=== PATIENT | female | born 1975 | race Caucasian/White ===

== ENCOUNTER 2020-01-26 12:11 | Day surgery (SDC) | payer OTHER, SELFPAY ==
[2020-01-25 11:18] VITALS: BMI 33.4
--- NOTE | 2020-01-25 12:02 | P.CONAN_ITS ---
Documented by User: Giuliana Donohue 01/25/20 12:07 HPI - Anesthesia Eval Consult details Narrative: 44yo F for L ESWL Last ESWL 2016 COUNT INCLUDES THE [facility] Past Medical History Medical History Anxiety Asthma Depression Insomnia Nephrolithiasis Obesity Scoliosis Surgical History Surgical History History of excision of pilonidal cyst Hx of lithotripsy Hx of tubal ligation Social History Social History Smoking Status: Never smoker Second Hand Smoke Exposure: No Use of substances other than those prescribed or required for medical reasons: No Have you been hit, kicked, punched, or otherwise hurt by someone within the past year? If so, by whom?: No Advance Directives: No Advance Directives Information Provided: Yes Advance Directives on File: No Recently lost weight without trying: No Meds Allergies Allergy/AdvReac Type Severity Reaction Status Date / Time almond Allergy Severe ANAPHYLAXIS Verified 01/26/20 13:49 latex [Latex] Allergy Severe RASH/SWELLI Verified 01/26/20 13:49 NG naproxen [NAPROXEN] Allergy Intermediate HIVES Verified 01/26/20 13:49 amoxicillin [AMOXICILLIN] Allergy Mild HIVES Verified 01/26/20 13:49 FRUIT Allergy Severe ANAPHYLAXIS Uncoded 01/06/20 14:56 Seafood Allergy Severe ANAPHYLAXIS Uncoded 01/06/20 14:56 Environmental Allergy Unknown Itching Uncoded 01/26/20 13:49 Shrimp Allergy Unknown anaphylaxis Uncoded 12/21/19 00:00 Home Medications Medication Instructions Recorded Confirmed Type betamethasone dipropionate applic TOPICAL BID 01/26/20 History bupropion HCl tab PO 01/26/20 History ferrous sulfate 1 tab PO BID 01/26/20 01/26/20 History fluticasone propionate 1 spray INTRANASAL DAILY 01/26/20 01/26/20 History ibuprofen 1 tab PO TID PRN 01/26/20 01/26/20 History loratadine 1 tab PO DAILY PRN 01/26/20 01/26/20 History lorazepam 1 tab PO BEDTIME 01/26/20 01/26/20 History omeprazole 1 cap PO DAILY 01/26/20 01/26/20 History tramadol 1 tab PO Q6H 01/26/20 01/26/20 History trazodone 1 tab PO BEDTIME PRN 01/26/20 01/26/20 History triamcinolone acetonide 1 applic TOPICAL BID 01/26/20 01/26/20 History Exam Exam Date and Time: January 25, 2020 1202 Height,Weight and Vital Signs: Height 5 ft 1 in Weight 80.286 kg Pertinent Lab Results Pertinent Lab Results: Laboratory Tests 11/30/19 10:35 WBC 6.5 Hgb 12.5 Hct 40.4 Plt Count 417 H Assessment and Plan Assessment Anesthesia Assessment: Chart Reviewed Documented by User: Yolanda Stewart 01/26/20 14:08 PMFSH Past Medical History Medical History Anxiety Asthma Depression Insomnia Nephrolithiasis Obesity Scoliosis Family History Family history of problems with anesthesia: No Surgical History Surgical History History of excision of pilonidal cyst Hx of lithotripsy Hx of tubal ligation History of Problems with Anesthesia: Yes (PONV) Social History Social History Smoking Status: Never smoker Second Hand Smoke Exposure: No Use of substances other than those prescribed or required for medical reasons: No Have you been hit, kicked, punched, or otherwise hurt by someone within the past year? If so, by whom?: No Advance Directives: No Advance Directives Information Provided: Yes Advance Directives on File: No Recently lost weight without trying: No Meds Allergies Allergy/AdvReac Type Severity Reaction Status Date / Time almond Allergy Severe ANAPHYLAXIS Verified 01/26/20 13:49 latex [Latex] Allergy Severe RASH/SWELLI Verified 01/26/20 13:49 NG naproxen [NAPROXEN] Allergy Intermediate HIVES Verified 01/26/20 13:49 amoxicillin [AMOXICILLIN] Allergy Mild HIVES Verified 01/26/20 13:49 FRUIT Allergy Severe ANAPHYLAXIS Uncoded 01/06/20 14:56 Seafood Allergy Severe ANAPHYLAXIS Uncoded 01/06/20 14:56 Environmental Allergy Unknown Itching Uncoded 01/26/20 13:49 Shrimp Allergy Unknown anaphylaxis Uncoded 12/21/19 00:00 Home Medications Medication Instructions Recorded Confirmed Type betamethasone dipropionate applic TOPICAL BID 01/26/20 History bupropion HCl tab PO 01/26/20 History ferrous sulfate 1 tab PO BID 01/26/20 01/26/20 History fluticasone propionate 1 spray INTRANASAL DAILY 01/26/20 01/26/20 History ibuprofen 1 tab PO TID PRN 01/26/20 01/26/20 History loratadine 1 tab PO DAILY PRN 01/26/20 01/26/20 History lorazepam 1 tab PO BEDTIME 01/26/20 01/26/20 History omeprazole 1 cap PO DAILY 01/26/20 01/26/20 History tramadol 1 tab PO Q6H 01/26/20 01/26/20 History trazodone 1 tab PO BEDTIME PRN 01/26/20 01/26/20 History triamcinolone acetonide 1 applic TOPICAL BID 01/26/20 01/26/20 History Exam Height,Weight and Vital Signs: Vital Signs Temp Pulse Resp BP Pulse Ox 01/26/20 13:15 97.0 F 84 16 122/85 100 Airway Mallampati Class: II TM Dist: >3cm Neck ROM: Full Loose/Missing/Broken Teeth: No Heart: RRR Lungs: CTAB Assessment and Plan Final Anesthetic Review NPO: Yes ASA Class: II Final Preanesthetic Review: No Changes in Pt Med Stat, Meds/Allgs Chart Reviewed, Consent Obtained/Reviewed and Anes Risks/Benef Reviewed Patient Risk: Intermediate Procedure Risk: Low Anesthetic Plan Anesthetic Plan: MAC: Disposition: Standard PACU
--- NOTE | 2020-01-26 12:17 | XR_ITS ---
EXAMINATION: XR ABDOMEN KUB CLINICAL INDICATION: Left renal stone COMPARISON: Ultrasound 11/30/2019. CT 12/28/2018. TECHNIQUE: AP view of the abdomen. FINDINGS: Punctate calcification overlies the lower pole of the left kidney, possibly a renal calculus. No additional calculi are evident. IMPRESSION: Unremarkable examination.
[2020-01-26 13:15] VITALS: BP 122/85; PULSE 84; RESP 16; TEMP 36.1; O2SAT 100
--- NOTE | 2020-01-26 13:18 | MHC.SHP ---
Pre-Procedural Eval Section A The patient is an INPATIENT: No The History & Physical has been completed within 30 days and I have reviewed it.: Yes Section B Chief Complaint: left renal stone Allergies: Allergies Allergy/AdvReac Type Severity Reaction Status Date / Time almond Allergy Severe ANAPHYLAXIS Unverified 01/06/20 14:56 latex [Latex] Allergy Severe RASH/SWELLI Unverified 01/06/20 14:56 NG naproxen [NAPROXEN] Allergy Intermediate HIVES Unverified 01/06/20 14:56 amoxicillin [AMOXICILLIN] Allergy Mild HIVES Unverified 01/06/20 14:56 FRUIT Allergy Severe ANAPHYLAXIS Uncoded 01/06/20 14:56 Seafood Allergy Severe ANAPHYLAXIS Uncoded 01/06/20 14:56 All fruits Allergy Unknown anaphylaxis Uncoded 12/21/19 00:00 Environmental Allergy Unknown Uncoded 12/21/19 00:00 Latex Allergy Unknown rash Uncoded 12/21/19 00:00 Shrimp Allergy Unknown anaphylaxis Uncoded 12/21/19 00:00 Plan Patient has been examined and remains a candidate for the planned procedure
[2020-01-26] MEDS: Lactated Ringers 1,000 ML 100 ML IVCONT (13:43)
--- NOTE | 2020-01-26 14:57 | PM.OP ---
Brief Operative Note Date of procedure: 01/26/20 Pre-op diagnosis: left renal stone Post-op diagnosis: same Procedure: left eswl Surgeon: Myles Rowland III, MD Anesthesia: MAC Condition: stable Disposition: same day
[2020-01-26 15:01] VITALS: BP 145/99; PULSE 67; RESP 16; TEMP 36.1; O2SAT 95
[2020-01-26 15:16] VITALS: BP 127/90; PULSE 68; RESP 16; TEMP 36.1; O2SAT 96
[2020-01-26 15:27] VITALS: BP 112/70; PULSE 67; RESP 16; TEMP 36.1; O2SAT 97
== END 2020-01-26 16:04 | disposition home or self-care (01) ==
PROVIDERS: Urology; PCP Internal Medicine; Visit Provider Internal Medicine
PROC: (CPT 50590; principal; 2020-01-26 14:50)
DX: N20.0 Calculus of kidney (principal); Z87.442 Personal history of urinary calculi; J45.909 Unspecified asthma, uncomplicated; F41.9 Anxiety disorder, unspecified; Z88.1 Allergy status to other antibiotic agents; Z91.040 Latex allergy status; Z91.013 Allergy to seafood; Z79.899 Other long term (current) drug therapy
CPT/HCPCS: 50590; 74018; J1885; J2250; J2405

== ENCOUNTER 2020-02-02 08:08 | Outpatient (REF) | payer OTHER, SELFPAY | END 2020-02-02 08:09 | disposition home or self-care (01) | LOC: HO.LNP 08:08 | PROVIDERS: PCP Internal Medicine; Referring Provider Internal Medicine; Visit Provider Obstetrics & Gynecology | DX: N87.0 Mild cervical dysplasia (principal) | CPT/HCPCS: 57455; 88305; 88341; 88342; 88360 ==

== ENCOUNTER 2020-03-13 10:52 | Outpatient (REF) | payer OTHER, SELFPAY ==
[2020-03-13 11:46] LABS: MANUAL DIFF FLAG NO
[2020-03-13 11:51] LABS: Basophils Absolute Auto 0.1 X10*3/uL (0.0-0.2); Basophils Percent Auto 0.8 % (0-2); Eosinophils Absolute Auto 0.3 X10*3/uL (0.0-0.4); Eosinophils Percent Auto 3.6 % (0-4); Hematocrit 41.4 % (37-47); Hemoglobin 13.7 g/dl (12.0-16.0); Imm Gran Abs Auto 0.03 X10*3/uL (0.00-0.03); Imm Gran Pct Auto 0.4 % (0.0-0.4); Lymphocytes Absolute Auto 1.7 X10*3/uL (1.2-4.9); Lymphocytes Percent Auto 22.6 % (20-40); Mean Corpuscular HGB Conc 33.1 g/dl (31.0-35.0); Mean Corpuscular Hemoglobin 29.1 pg (27.0-33.0); Mean Corpuscular Volume 87.9 fL (80-98); Mean Platelet Volume 9.8 fL (9.4-12.3); Monocytes Absolute Auto 0.3 X10*3/uL (0.1-1.2); Monocytes Percent Auto 3.9 % (2-11); Neutrophils Absolute Auto 5.2 X10*3/uL (2.0-8.3); Neutrophils Percent Auto 68.7 % (45-73); Platelet Count 402 X10*3/uL (160-400); Red Blood Count 4.71 X10*6/uL (4.20-5.50); Red Cell Distribution Width 13.4 % (11.0-16.0); White Blood Count 7.5 X10*3/uL (4.8-10.8)
[2020-03-13 12:26] LABS: Iron 98 mcg/dL (30-160); Percent Iron Saturation 31 % (15-50); Total Iron Binding Capacity 315 mcg/dL (228-428); Unsaturated Iron Binding 217 ug/dL
[2020-03-13 12:46] LABS: Ferritin 18 ng/mL (10-250)
== END 2020-03-13 10:53 | disposition home or self-care (01) ==
LOC: HO.LAB 10:52
PROVIDERS: PCP Internal Medicine; Visit Provider Internal Medicine
DX: E61.1 Iron deficiency (principal)
CPT/HCPCS: 36415; 82728; 83540; 85025

== ENCOUNTER 2020-03-20 10:19 | Outpatient (REF) | payer OTHER, SELFPAY | END 2020-03-20 10:20 | disposition home or self-care (01) | LOC: HO.LAB 10:19 | PROVIDERS: Visit Provider Internal Medicine | DX: Z20.828 Contact with and (suspected) exposure to other viral communicable diseases (principal) | CPT/HCPCS: C9803; U0003 ==

== ENCOUNTER 2020-05-18 13:29 | Outpatient (REF) | payer OTHER, SELFPAY ==
--- NOTE | 2020-05-18 13:31 | US_ITS ---
EXAMINATION: US RETROPERITONEAL LIMITED (RENAL ONLY) CLINICAL INFORMATION: Calculus of kidney. COMPARISON: X-ray abdomen KUB 01/26/2020. Renal ultrasound 11/30/2019 and 08/12/2018. CT abdomen and pelvis 12/28/2018. TECHNIQUE: Real-time imaging of the kidneys. FINDINGS: RIGHT KIDNEY: 10.8 x 4.8 x 4.5 cm (SAG x AP x TRV). The kidney is normal in size, contour, and echogenicity. Renal cortical thickness is normal. No renal calculi or hydronephrosis. Lower pole 1.5 cm simple cyst. LEFT KIDNEY: 11.0 x 6.1 x 5.9 cm (SAG x AP x TRV). The kidney is normal in size, contour, and echogenicity. Renal cortical thickness is normal. No focal parenchymal lesions or hydronephrosis. Lower pole calculus measuring 0.3 cm. 0.3 cm midpole calculus noted. US/US renal BI IMPRESSION: Nonobstructing small left renal calculi. These appear smaller than on the previous ultrasound.
== END 2020-05-18 13:30 | disposition home or self-care (01) ==
LOC: HO.US 13:29
PROVIDERS: Visit Provider Urology
DX: N20.0 Calculus of kidney (principal)
CPT/HCPCS: 76775

== ENCOUNTER 2020-06-14 10:45 | Outpatient (REF) | payer OTHER, SELFPAY ==
--- NOTE | ~2020-06-14 | MM_ITS ---
EXAMINATION: MM SCREENING DIGITAL BREAST TOMOSYNTHESIS, BILATERAL CLINICAL INFORMATION: Screening. Asymptomatic. The lifetime risk of breast cancer based on the Tyrer-Cuzick Model is 7%. COMPARISON: Mammography: 06/09/2019, 06/03/2018, 05/19/2017 TECHNIQUE: Digital breast tomosynthesis is performed in both the craniocaudal and mediolateral oblique views along with computer-aided detection (CAD). Synthesized 2D images are generated from the tomosynthesis. FINDINGS: There are scattered areas of fibroglandular density (ACR BI-RADS breast composition Category b). There are no significant masses, abnormal calcifications, or other abnormalities. Parenchymal pattern is similar to prior exams. Low right axillary tail nodes are stable. There is benign grouped rim dermal calcifications again seen right breast 4:00 position. MM/MM tomosynthesis screening BI IMPRESSION: No mammographic evidence of malignancy. ASSESSMENT: BI-RADS 2: Benign RECOMMENDATION: Routine annual mammography screening. This patient's information was entered into a reminder system with a target due date for their next mammogram.
== END 2020-06-14 10:46 | disposition home or self-care (01) ==
LOC: HO.MAMMO 10:45
PROVIDERS: PCP Internal Medicine; Visit Provider Internal Medicine
DX: Z12.31 Encounter for screening mammogram for malignant neoplasm of breast (principal)
CPT/HCPCS: 77063; 77067

== ENCOUNTER → 2020-08-04 12:09 | Outpatient (BNVA) | payer OTHER, SELFPAY | PROVIDERS: PCP Internal Medicine; Visit Provider Urology ==

== ENCOUNTER 2021-02-08 08:08 | Outpatient (REF) | payer OTHER, SELFPAY ==
--- NOTE | ~2021-02-08 | US_ITS ---
EXAMINATION: US RETROPERITONEAL LIMITED (RENAL ONLY) CLINICAL INFORMATION: Calculus of kidney. COMPARISON: Renal ultrasound 05/18/2020 and 11/30/2019. X-ray abdomen KUB 01/26/2020. CT abdomen and pelvis 12/28/2018. TECHNIQUE: Real-time imaging of the kidneys. FINDINGS: RIGHT KIDNEY: 12.4 x 4.3 x 4.4 cm (SAG x AP x TRV). The kidney is normal in size, contour, and echogenicity. Renal cortical thickness is normal. No hydronephrosis. There is an anechoic cyst lower pole measuring 1.6 x 0.9 x 1.7 cm. There is an echogenic stone in the lower pole measuring 0.5 x 0.3 x 0.5 cm. There are several echogenic punctate foci scattered throughout with twinkle artifact. LEFT KIDNEY: 12.8 x 6.7 x 6.4 cm (SAG x AP x TRV). The kidney is normal in size, contour, and echogenicity. Renal cortical thickness is normal. No focal parenchymal lesions or hydronephrosis. There is a midpole echogenic stone measuring 0.5 x 0.4 x 0.6 cm and a lower pole echogenic stone measuring 0.4 x 0.3 x 0.4 cm. No caliectasis seen. There are multiple echogenic punctate foci with twinkle artifact. US/US renal BI IMPRESSION: Bilateral echogenic stones without caliectasis. There are multiple echogenic punctate foci, likely tiny vascular calcifications. There is a small 1.7 cm cyst lower pole right kidney. There is no hydronephrosis.
== END 2021-02-08 08:09 | disposition home or self-care (01) ==
LOC: HO.US 08:08
PROVIDERS: PCP Internal Medicine; Visit Provider Urology
DX: N20.0 Calculus of kidney (principal)
CPT/HCPCS: 76775

== ENCOUNTER → 2021-02-16 14:34 | Outpatient (BNVA) | payer OTHER, SELFPAY | PROVIDERS: Visit Provider Urology ==

== ENCOUNTER 2021-03-06 10:00 | Outpatient (REF) | payer OTHER, SELFPAY ==
[2021-03-09 02:36] LABS: HPV mRNA E6/E7 rflx Not Detected (Not Detected)
== END 2021-03-06 10:01 | disposition home or self-care (01) ==
LOC: HO.LAB 10:00
PROVIDERS: PCP Internal Medicine; Visit Provider Obstetrics & Gynecology
DX: Z01.419 Encounter for gynecological examination (general) (routine) without abnormal findings (principal); Z11.51 Encounter for screening for human papillomavirus (HPV); N87.0 Mild cervical dysplasia
CPT/HCPCS: 87624; 88142

== ENCOUNTER → 2021-06-14 08:01 | Outpatient (BNVA) | payer OTHER, SELFPAY | PROVIDERS: PCP Internal Medicine; Referring Provider Internal Medicine; Visit Provider Physician Assistant | DX: Z12.11 Encounter for screening for malignant neoplasm of colon (principal) | CPT/HCPCS: 99202 ==

== ENCOUNTER 2021-07-05 11:37 | Outpatient (REF) | payer OTHER, SELFPAY ==
--- NOTE | ~2021-07-05 | MM_ITS ---
EXAMINATION: MM SCREENING DIGITAL BREAST TOMOSYNTHESIS, BILATERAL CLINICAL INFORMATION: Screening. Asymptomatic. The lifetime risk of breast cancer based on the Tyrer-Cuzick Model is 8%. COMPARISON: Mammography: 06/14/2020, 06/09/2019, 06/03/2018. TECHNIQUE: Digital breast tomosynthesis is performed in both the craniocaudal and mediolateral oblique views along with computer-aided detection (CAD). Synthesized 2D images are generated from the tomosynthesis. FINDINGS: There are scattered areas of fibroglandular density (ACR BI-RADS breast composition Category b). There are no significant masses, abnormal calcifications, or other abnormalities. Parenchymal pattern is similar to prior studies. No developing density. The axilla and skin contours are unremarkable. MM/MM tomosynthesis screening BI IMPRESSION: No mammographic evidence of malignancy. ASSESSMENT: BI-RADS 1: Negative RECOMMENDATION: Routine annual mammography screening. This patient's information was entered into a reminder system with a target due date for their next mammogram.
== END 2021-07-05 11:38 | disposition home or self-care (01) ==
LOC: HO.MAMMO 11:37
PROVIDERS: PCP Internal Medicine; Visit Provider Obstetrics & Gynecology
DX: Z12.31 Encounter for screening mammogram for malignant neoplasm of breast (principal)
CPT/HCPCS: 77063; 77067

== ENCOUNTER 2021-07-20 09:01 | Emergency (ER) | payer OTHER, SELFPAY ==
--- NOTE | ~2021-07-20 | XR_ITS ---
EXAMINATION: XR CHEST CLINICAL INFORMATION: Chest pain COMPARISON: Previous chest x-ray 07/27/2017 TECHNIQUE: Frontal view of the chest was obtained. FINDINGS: The cardiac and mediastinal contours are normal. There is scarring or subsegmental atelectasis at the lung bases. The lungs are otherwise clear. There is no pleural effusion or pneumothorax. There is mild curvature of the proximal thoracic spine to the left. XR/XR chest 1V IMPRESSION: Minimal linear scarring or subsegmental atelectasis at the lung bases. Otherwise unremarkable exam.
[2021-07-20 09:03] VITALS: BP 147/81; PULSE 76; RESP 16; TEMP 37.2; O2SAT 99; BMI 35.6
--- NOTE | 2021-07-20 09:24 | ED_ITS ---
HPI - Chest Pain General Chief Complaint: Chest Pain Stated Complaint: Chest discomfort Time Seen by Provider: 07/20/21 09:24 Source: patient Mode of arrival: ambulatory Limitations: no limitations History of Present Illness HPI narrative: chest discomfort for 3 hours. Patient woke up with the pain, the pain continued at work so she come to the ED. Patient has anxiety and depression. Parents are healthy mother has CAD. MD complaint: chest heaviness Onset (ago): hour(s) Timing of current episode: constant Prior episodes: No Onset: during rest Pain location: substernal Severity: mild Quality: other (heavy) Risk Factors Coronary artery disease risk factors: none Thoracic aortic dissection risk factors: none Related Data Home Medications Medication Instructions Recorded Confirmed bupropion HCl 150 mg tablet,12 hr tab PO 01/26/20 06/24/21 sustained-release Previous Rx's Medication Instructions Recorded tizanidine 2 mg tablet 2 mg PO Q8H PRN #90 tab 06/21/20 pyridoxine (vitamin B6) 100 mg 100 mg PO DAILY 90 Days #90 tab 08/04/20 tablet ferrous sulfate 325 mg (65 mg 325 mg PO BID #90 tab 08/31/20 iron) tablet ibuprofen 800 mg tablet 800 mg PO TID PRN #90 tab 10/11/20 loratadine 10 mg tablet 10 mg PO DAILY PRN #90 tab 10/11/20 epinephrine 0.3 mg/0.3 mL 0.3 mg (0.3 mL) IM Q10M PRN #2 ea 11/06/20 injection, auto-injector (EpiPen 2-Dylan) albuterol sulfate 90 mcg/actuation 2 puff INHALATION Q4-6H PRN 30 12/08/20 aerosol inhaler (ProAir HFA) Days #8.5 g tramadol 50 mg tablet 50 mg PO Q6H 5 Days #20 tab 12/08/20 triamcinolone acetonide 0.5 % 1 appl TOPICAL DAILY PRN #15 g 12/11/20 topical cream omeprazole 20 mg capsule,delayed 20 mg PO DAILY #30 cap 01/01/21 release lorazepam 1 mg tablet 1 mg PO BEDTIME #30 tab 05/04/21 bisacodyl 5 mg tablet,delayed 10 mg PO ONCE 1 Days #2 tab 06/14/21 release (Dulcolax (bisacodyl)) polyethylene glycol 3350 17 238 g PO ONCE 1 Days #238 g 06/14/21 gram/dose oral powder (Miralax) fluticasone propionate 50 1 spray INTRANASAL DAILY 10 Days 07/09/21 mcg/actuation nasal #150 ml spray,suspension (Flonase Allergy Relief) trazodone 50 mg tablet 50 mg PO BEDTIME PRN #90 tab 07/10/21 naproxen 500 mg tablet (Naprosyn) 500 mg PO BID #20 tab 07/20/21 Allergies Allergy/AdvReac Type Severity Reaction Status Date / Time almond Allergy Severe ANAPHYLAXIS Verified 06/24/21 22:49 latex [Latex] Allergy Severe RASH/SWELLI Verified 06/24/21 22:49 NG shrimp Allergy Severe Anaphylaxis Verified 06/24/21 22:49 naproxen [NAPROXEN] Allergy Intermediate HIVES Verified 06/24/21 22:49 amoxicillin [AMOXICILLIN] Allergy Mild HIVES Verified 06/24/21 22:49 FRUIT Allergy Severe ANAPHYLAXIS Uncoded 06/24/21 22:49 Environmental Allergy Unknown Itching Uncoded 06/24/21 22:49 Review of Systems Constitutional: Constitutional: Reports no additional constitutional complaints Eyes: Eyes: Reports no additional eye complaints ENT: Denies dizziness Cardiovascular: Cardiovascular: Reports no additional cardiovascular complaints Respiratory: Respiratory: Reports as per HPI Gastrointestinal: Gastrointestinal: Reports no additional gastrointestinal complaints Genitourinary: Genitourinary: Reports no additional female genitourinary complaints Musculoskeletal: Musculoskeletal: Reports no additional musculoskeletal complaints Integumentary/Breasts: Skin/Breast: Denies rash Neurologic: Reports system reviewed and no additional complaints, except as documented, Denies dizziness and Denies Sensory deficit (Neuro) Psychiatric: Psychiatric: Denies anxiety PMFSH Past Medical History Medical History Anemia Anemia Anxiety ASCUS with positive high risk HPV ASCUS with positive high risk HPV cervical Asthma Depression Insomnia Nephrolithiasis Obesity Obesity Obesity (BMI 30-39.9) Renal stone Scoliosis Surgical History History of excision of pilonidal cyst Hx of lithotripsy Hx of tubal ligation Family History Family History Father No problems noted. Mother Diabetes Maternal Grandmother COPD (chronic obstructive pulmonary disease) Paternal Grandfather No problems noted. Paternal Grandmother Medical history unknown Social History Social History Housing: House Alcohol intake: never Patient Tobacco Use Status: Never used Tobacco e-Cigarette/Vaping Use: Never Used Second Hand Smoke Exposure: No Advance Directives: No Patient : No service: No Current occupational status: employed Current occupation: [employer] Sexual orientation: Straight/Heterosexual Gender identity: Female Physical Exam Vital Signs: Vital Signs: Last Vital Signs Temp 99.0 F 07/20/21 09:03 Pulse 74 07/20/21 10:03 Resp 18 07/20/21 10:03 BP 116/81 07/20/21 10:03 Pulse Ox 97 07/20/21 10:03 BMI result Body Mass Index 35.6 Const: General: healthy appearing Nutritional Appearance: average body habitus Orientation/consciousness: oriented to person and patient oriented x3 Limitations: no limitations HEENT: Head: Yes normal to inspection Ears: external ears normal General nose exam: Normal external nose present Mouth: Normal oral and palatal mucosa present and oropharynx normal Throat: Yes posterior oropharynx normal Eyes: General: appearance normal, both eyes and all related structures Neck: Other: supple Neck: Yes normal visual inspection Chest: Other: reproducible pain to palpation Chest palpation & inspection: normal inspection of the chest Resp: Auscultation: clear to auscultation bilaterally Cardio: Jugular venous distension: no JVD Rate: regular rate Rhythm: regular rhythm Heart sounds: S1 normal heart sound present and S2 normal heart sound present GI: Inspection: Yes normal to inspection Palpation (GI): Soft to palpation, nontender and No hepatosplenomegaly present Auscultation: normal bowel sounds : General: Yes no CVA tenderness Back/Spine/Pelvis: Back: no CVA tenderness Skin: General skin exam: no rashes or lesions noted Neuro: General: oriented to person and patient oriented x3 Cranial nerves: Yes CN's II-XII intact bilaterally Motor exam (neuro): 5/5 motor strength present throughout Sensory Exam: No Sensory deficit (Neuro) Extrem: General: Yes normal to inspection Psych: Appearance: grossly normal Course Reevaluation(s) Reevaluation #1: patient with reproducible pain on chest, will treat for costrocondritis Time: 11:16 [facility] - Chest Pain Lab Data Result diagrams: 07/20/21 09:43 07/20/21 09:43 Labs: Lab Results 07/20/21 07/20/21 07/20/21 Range/Units 09:43 09:43 09:43 WBC 6.2 (4.8-10.8) X10*3/uL RBC 4.59 (4.20-5.50) X10*6/uL Hgb 12.9 (12.0-16.0) g/dl Hct 39.9 (37.0-47.0) % MCV 86.9 (80.0-98.0) fL MCH 28.1 (27.0-33.0) pg MCHC 32.3 (31.0-35.0) g/dl RDW 13.1 (11.0-16.0) % Plt Count 374 (160-400) X10*3/uL MPV 9.7 (9.4-12.3) fL Immature Gran % (Auto) 0.2 (0.0-0.4) % Neut % (Auto) 66.8 (45-73) % Lymph % (Auto) 22.8 (20-40) % [place] % (Auto) 5.5 (2-11) % Eos % (Auto) 3.9 (0-4) % Baso % (Auto) 0.8 (0-2) % Lymph # (Auto) 1.4 (1.2-4.9) X10*3/uL [place] # (Auto) 0.3 (0.1-1.2) X10*3/uL Eos # (Auto) 0.2 (0.0-0.4) X10*3/uL Baso # (Auto) 0.1 (0.0-0.2) X10*3/uL Abs Immat Gran (auto) 0.01 (0.00-0.03) X10*3/uL Absolute Neuts (auto) 4.2 (2.0-8.3) x10*3/uL Absolute Nucleated RBC 0.000 (0.0-0.012) X10*3/uL Nucleated RBC % (auto) 0.0 (0.0-0.2) /100WBC Sodium 139 (135-145) mmol/L Potassium 3.7 (3.3-5.1) mmol/L Chloride 109 H (96-108) mmol/L Carbon Dioxide 25 (22-29) mmol/L Anion Gap 9 L (12-20) BUN 13 (9-16) mg/dL Creatinine 0.75 (0.5-1.4) mg/dL Estim Creat Clear Calc 93.2 Estimated GFR > 60 Random Glucose 147 H (60-115) mg/dL Calcium 9.2 (8.4-10.2) mg/dL Troponin I High Sens < 3.5 (<3.5-17.0) ng/L ECG Data ECG #1: Attestation: I personally reviewed and interpreted this ECG as follows: Interpretation: sinus 85, no st or twave changes Discharge Plan Discharge Clinical Impression: Costalchondritis, Atypical chest pain Patient Disposition: Home, Self-Care Instructions: Costochondritis (ED) Prescriptions: New naproxen [Naprosyn] 500 mg tablet 500 mg PO BID Qty: 20 0RF No Action tizanidine 2 mg tablet 2 mg PO Q8H PRN (Reason: muscle spasticity) Qty: 90 8RF ferrous sulfate 325 mg (65 mg iron) tablet 325 mg PO BID Qty: 90 8RF ibuprofen 800 mg tablet 800 mg PO TID PRN (Reason: pain) Qty: 90 8RF loratadine 10 mg tablet 10 mg PO DAILY PRN (Reason: Allergy Symptoms) Qty: 90 8RF epinephrine [EpiPen 2-Dylan] 0.3 mg/0.3 mL auto-injector 0.3 mg IM Q10M PRN (Reason: anaphylaxis) Qty: 2 3RF Rx Instructions: for 2 doses tramadol 50 mg tablet 50 mg PO Q6H 5 Days Qty: 20 0RF triamcinolone acetonide 0.5 % cream 1 appl topical DAILY PRN (Reason: rash) Qty: 15 5RF omeprazole 20 mg capsule,delayed release(DR/EC) 20 mg PO DAILY Qty: 30 0RF lorazepam 1 mg tablet 1 mg PO BEDTIME Qty: 30 5RF fluticasone propionate [Flonase Allergy Relief] 50 mcg/actuation spray,suspension 1 spray intranasal DAILY 10 Days Qty: 150 7RF Rx Instructions: administer into each nostril trazodone 50 mg tablet 50 mg PO BEDTIME PRN (Reason: insomnia) Qty: 90 8RF bupropion HCl 150 mg tablet sustained-release 12 hr PO 0RF albuterol sulfate [ProAir HFA] 90 mcg/actuation HFA aerosol inhaler 2 puff inhalation Q4-6H PRN (Reason: shortness of breath or wheezing) 30 Days Qty: 8.5 0RF pyridoxine (vitamin B6) 100 mg tablet 100 mg PO DAILY 90 Days Qty: 90 1RF bisacodyl [Dulcolax (bisacodyl)] 5 mg tablet,delayed release (DR/EC) 10 mg PO ONCE 1 Days Qty: 2 0RF Rx Instructions: Take 2 tablets by mouth at 12:00pm the day before your procedure. polyethylene glycol 3350 [Miralax] 17 gram/dose powder 238 g PO ONCE 1 Days Qty: 238 0RF Rx Instructions: Take as directed by mouth the day before your procedure. Referrals: Harvinder Pugh MD [Primary Care Provider] - 1 week
--- NOTE | 2021-07-20 09:28 | ECG_ITS ---
Test Reason : palpitation Blood Pressure : / mmHG Vent. Rate : 086 BPM Atrial Rate : 086 BPM P-R Int : 136 ms QRS Dur : 086 ms QT Int : 372 ms P-R-T Axes : 015 008 037 degrees QTc Int : 445 ms Normal sinus rhythm Normal ECG When compared with ECG of 20-APR-2019 09:58, No significant change was found Referred By: Sg Ríos Electronically Signed By:SIXTO BARBOSA
[2021-07-20 09:46] LABS: MANUAL DIFF FLAG NO
[2021-07-20 09:53] LABS: Basophils Absolute Auto 0.1 X10*3/uL (0.0-0.2); Basophils Percent Auto 0.8 % (0-2); Eosinophils Absolute Auto 0.2 X10*3/uL (0.0-0.4); Eosinophils Percent Auto 3.9 % (0-4); Hematocrit 39.9 % (37.0-47.0); Hemoglobin 12.9 g/dl (12.0-16.0); Imm Gran Abs Auto 0.01 X10*3/uL (0.00-0.03); Imm Gran Pct Auto 0.2 % (0.0-0.4); Lymphocytes Absolute Auto 1.4 X10*3/uL (1.2-4.9); Lymphocytes Percent Auto 22.8 % (20-40); Mean Corpuscular HGB Conc 32.3 g/dl (31.0-35.0); Mean Corpuscular Hemoglobin 28.1 pg (27.0-33.0); Mean Corpuscular Volume 86.9 fL (80.0-98.0); Mean Platelet Volume 9.7 fL (9.4-12.3); Monocytes Absolute Auto 0.3 X10*3/uL (0.1-1.2); Monocytes Percent Auto 5.5 % (2-11); Neutrophils Absolute Auto 4.2 x10*3/uL (2.0-8.3); Neutrophils Percent Auto 66.8 % (45-73); Platelet Count 374 X10*3/uL (160-400); Red Blood Count 4.59 X10*6/uL (4.20-5.50); Red Cell Distribution Width 13.1 % (11.0-16.0); White Blood Count 6.2 X10*3/uL (4.8-10.8)
[2021-07-20] MEDS: Ketorolac Tromethamine 30 MG/ML VIAL IVPUSH (09:58)
[2021-07-20 10:03] VITALS: BP 116/81; PULSE 74; RESP 18; O2SAT 97
[2021-07-20 10:13] LABS: Anion Gap 9 (12-20); Blood Urea Nitrogen 13 mg/dL (9-16); Calcium 9.2 mg/dL (8.4-10.2); Carbon Dioxide 25 mmol/L (22-29); Chloride 109 mmol/L (96-108); Creatinine Clr Calc Pharmacy 93.2; Estimated Glomerular Filt Rate > 60; Glucose Random 147 mg/dL (60-115); Potassium 3.7 mmol/L (3.3-5.1); Sodium 139 mmol/L (135-145)
[2021-07-20 10:14] LABS: Troponin-I High Sensitivity < 3.5 ng/L (<3.5-17.0)
== END 2021-07-20 12:14 | disposition home or self-care (01) ==
PROVIDERS: Emergency Provider Emergency Medicine; PCP Internal Medicine
DX: M94.0 Chondrocostal junction syndrome [Tietze] (principal); R07.89 Other chest pain; F41.9 Anxiety disorder, unspecified; Z79.899 Other long term (current) drug therapy
CPT/HCPCS: 36415; 71045; 80048; 84484; 85025; 93005; 96374; 99284; J1885

== ENCOUNTER 2021-08-15 13:02 | Outpatient (REF) | payer OTHER, SELFPAY ==
--- NOTE | ~2021-08-15 | US_ITS ---
EXAMINATION: US RETROPERITONEAL LIMITED (RENAL ONLY) CLINICAL INFORMATION: Calculus of kidney. COMPARISON: Renal ultrasound 02/08/2021 and 05/18/2020. X-ray abdomen KUB 01/26/2020. CT abdomen and pelvis 12/28/2018. TECHNIQUE: Real-time imaging of the kidneys. FINDINGS: RIGHT KIDNEY: 12.4 x 4.7 x 4.2 cm (SAG x AP x TRV). The kidney is normal in size, contour, and echogenicity. Renal cortical thickness is normal. No hydronephrosis. Within the lower pole there is a 1.1 x 1.4 x 1.4 cm minimally complex cyst with the appearance of a Bosniak 2 cyst. There are multiple echogenic foci seen within the collecting system. No hydronephrosis is seen. Within the midpole region there are a 5, a 4, a 3, a 4, and a 5 mm echogenic focus which may represent calculi or vascular interface. LEFT KIDNEY: 11.4 x 5.4 x 5.1 cm (SAG x AP x TRV). The kidney is normal in size, contour, and echogenicity. Renal cortical thickness is normal. No focal parenchymal lesions or hydronephrosis. There are multiple echogenic foci present consistent with calculi. Within the midpole there are a 7, 4, and a 4 mm calculus. US/US renal BI IMPRESSION: Bilateral nephrolithiasis. Minimally complex right renal cyst. No evidence of obstructive uropathy.
== END 2021-08-15 13:03 | disposition home or self-care (01) ==
LOC: HO.US 13:02
PROVIDERS: Visit Provider Urology
DX: N20.0 Calculus of kidney (principal); N28.1 Cyst of kidney, acquired
CPT/HCPCS: 76775

== ENCOUNTER → 2021-08-28 13:47 | Outpatient (BNVA) | payer OTHER, SELFPAY | PROVIDERS: PCP Internal Medicine; Visit Provider Urology | DX: Z13.89 Encounter for screening for other disorder (principal) ==

== ENCOUNTER 2021-11-16 16:20 | Emergency (ER) | payer OTHER, SELFPAY ==
--- NOTE | ~2021-11-16 | CT_ITS ---
EXAMINATION: CT ABDOMEN AND PELVIS WITHOUT CONTRAST CLINICAL INFORMATION: Left flank pain COMPARISON: CT abdomen and pelvis 12/28/2018 TECHNIQUE: Multidetector volumetric imaging was performed from the superior aspect of the liver through the pubic symphysis. Sagittal and coronal reformatted images were obtained on the technologist's workstation. This CT examination was performed using dose optimization techniques as appropriate, variously including the following: *Automated exposure control *Adjustment of mA and/or kV according to patient size (this includes techniques or standardized protocols for targeted exams where dose is matched to indication/reason for exam; i.e. extremities or head) *Use of iterative reconstruction technique DLP: 700 mGy-cm FINDINGS: LUNG BASES: Unchanged small 5 mm pleural-based nodular density in the left lower lobe since 2019 compatible with benign etiology. Mild linear scarring in the lingula. Minimal dependent right basilar atelectasis. LIVER, GALLBLADDER, AND BILIARY TREE: The liver is normal in size, shape, and attenuation. No focal hepatic lesion or biliary ductal dilatation is present. The gallbladder is unremarkable with no evidence of radiopaque gallstones, gallbladder wall thickening, or obvious pericholecystic inflammatory changes. PANCREAS: Unremarkable. SPLEEN: Unremarkable. ADRENAL GLANDS: Unremarkable. KIDNEYS AND URETERS: Moderate left hydroureteronephrosis with accompanying perinephric stranding secondary to a 4 mm left distal ureteral calculus at the left UVJ/ureteral orifice. No right-sided hydronephrosis. Approximately 3 punctate 1-2 mm nonobstructing right lower pole renal calculi. There are several nonobstructing right renal calculi largest in the lower pole measuring up to 5 mm in size. Subcentimeter hypodense probable cyst in the right lower pole. No other renal lesions. No perinephric fluid collections. BLADDER: Unremarkable. GASTROINTESTINAL TRACT: The small and large bowel are unremarkable. The appendix is unremarkable. ABDOMINAL WALL: No significant hernia is appreciated. LYMPH NODES: No lymphadenopathy. VASCULAR: Unremarkable. PELVIC VISCERA: Gynecologic structures are grossly unremarkable. Tubal ligation clips noted. No free pelvic fluid. OSSEOUS STRUCTURES: No acute fracture or suspicious osseous lesion. CT/CT abdomen pelvis wo con IMPRESSION: 1. Moderate left hydroureteronephrosis and mild perinephric stranding secondary to a 4 mm obstructing calculus at the level of the left UVJ. 2. Additional small nonobstructing bilateral renal calculi, as above.
[2021-11-16 16:31] VITALS: BP 160/97; PULSE 72; RESP 18; TEMP 36.8; O2SAT 98; BMI 35.6
[2021-11-16 17:00] LABS: Hematocrit 39.7 % (37.0-47.0); Hemoglobin 13.3 g/dl (12.0-16.0); Mean Corpuscular HGB Conc 33.5 g/dl (31.0-35.0); Mean Corpuscular Hemoglobin 28.5 pg (27.0-33.0); Mean Corpuscular Volume 85.2 fL (80.0-98.0); Mean Platelet Volume 9.4 fL (9.4-12.3); Platelet Count 431 X10*3/uL (160-400); Red Blood Count 4.66 X10*6/uL (4.20-5.50); Red Cell Distribution Width 12.8 % (11.0-16.0); White Blood Count 8.8 X10*3/uL (4.8-10.8)
[2021-11-16 17:01] LABS: Appearance Urine HAZY; Color Urine YELLOW; Glucose Urine UA NEG (NEG); Leukocyte Esterase Urine NEG (NEG); Nitrite Urine NEG (NEG); PH 5.5 (5.0-8.0); Specific Gravity - Urine >= 1.030 (1.005-1.025); UACC Culture Trigger NO; Urine Blood 3+ (NEG); Urine Ketones NEG (NEG); Urine Protein 1+ MG/DL (NEG-TRACE)
[2021-11-16 17:10] LABS: RBC Urine TNTC /HPF (0); Squamous Epithelial Cell Urine 3+ /LPF
[2021-11-16 17:13] LABS: Anion Gap 15 (12-20); Blood Urea Nitrogen 12 mg/dL (9-16); Calcium 9.2 mg/dL (8.4-10.2); Carbon Dioxide 25 mmol/L (22-29); Chloride 105 mmol/L (96-108); Creatinine Clr Calc Pharmacy 83.2; Estimated Glomerular Filt Rate > 60; Glucose Random 119 mg/dL (60-115); Potassium 3.6 mmol/L (3.3-5.1); Sodium 141 mmol/L (135-145)
[2021-11-16 21:16] VITALS: BP 165/91; PULSE 71; RESP 16; TEMP 36.8; O2SAT 98
--- NOTE | 2021-11-16 21:20 | ED.ABDPAIN ---
HPI - Abdominal Pain General Chief Complaint: Abdominal Pain Stated Complaint: kidney stones Time Seen by Provider: 11/16/21 18:57 Source: patient Limitations: no limitations History of Present Illness HPI narrative: Patient comes to the emergency room complaining of kidney stones. Patient states that she has had previous kidney stones, she has need surgery for this. Patient was evaluated 3 days ago by Urology, patient will likely need an ESWL, ureteroscopy with laser lithotripsy and stent placement. Patient states that the pain that she is feeling has been continuously for 2 weeks, but over the last couple of days it got worse. Patient unsure if she has hematuria as she is currently menstruating. Related Data Home Medications Medication Instructions Recorded Confirmed bupropion HCl 150 mg tablet,12 hr 1 tab PO DAILY 01/26/20 11/13/21 sustained-release Previous Rx's Medication Instructions Recorded loratadine 10 mg tablet 10 mg PO DAILY PRN Allergy 10/11/20 Symptoms #90 tabs epinephrine 0.3 mg/0.3 mL 0.3 mg (0.3 mL) IM Q10M PRN 11/06/20 injection, auto-injector (EpiPen anaphylaxis #2 ea 2-Dylan) albuterol sulfate 90 mcg/actuation 2 puff inhalation Q4-6H PRN 12/08/20 aerosol inhaler (ProAir HFA) shortness of breath or wheezing 30 days #8.5 grams triamcinolone acetonide 0.5 % 1 appl topical DAILY PRN rash #15 12/11/20 topical cream grams omeprazole 20 mg capsule,delayed 20 mg PO DAILY #30 caps 01/01/21 release lorazepam 1 mg tablet 1 mg PO BEDTIME #30 tabs 05/04/21 fluticasone propionate 50 1 spray intranasal DAILY 10 days 07/09/21 mcg/actuation nasal #150 mL spray,suspension (Flonase Allergy Relief) trazodone 50 mg tablet 50 mg PO BEDTIME PRN insomnia #90 07/10/21 tabs tizanidine 2 mg tablet 2 mg PO Q8H PRN muscle spasticity 07/26/21 #90 tabs pyridoxine (vitamin B6) 100 mg 100 mg PO DAILY 90 days #90 tabs 08/28/21 tablet ferrous sulfate 325 mg (65 mg 325 mg PO BID #90 tabs 09/04/21 iron) tablet tramadol 50 mg tablet 50 mg PO Q8H PRN pain #15 tabs 09/28/21 ibuprofen 800 mg tablet 800 mg PO TID PRN pain #90 tabs 10/18/21 ketorolac 10 mg tablet 10 mg PO BID PRN pain 5 days #7 11/16/21 tabs prednisone 20 mg tablet 20 mg PO DAILY #3 tabs 11/16/21 tamsulosin 0.4 mg capsule 0.4 mg PO DAILY #10 caps 11/16/21 Allergies Allergy/AdvReac Type Severity Reaction Status Date / Time almond Allergy Severe ANAPHYLAXIS Verified 11/13/21 15:46 latex [Latex] Allergy Severe RASH/SWELLI Verified 11/13/21 15:46 NG shrimp Allergy Severe Anaphylaxis Verified 11/13/21 15:46 naproxen [NAPROXEN] Allergy Intermediate HIVES Verified 11/13/21 15:46 amoxicillin [AMOXICILLIN] Allergy Mild HIVES Verified 11/13/21 15:46 FRUIT Allergy Severe ANAPHYLAXIS Uncoded 11/13/21 15:46 Environmental Allergy Unknown Itching Uncoded 11/13/21 15:46 Review of Systems Review of Systems Constitutional : No Weight loss, No Fever, No Chills, No Night Sweats, No Fatigue, No Malaise ENT/Mouth : No Hearing loss, No Ear Pain, No Nasal Congestion, No Sinus Pain, No Hoarseness, No sore throat, No Rhinorrhea, No Swallowing Difficulty Eyes: No Eye Pain, No Swelling, No Redness, No Foreign Body, No Discharge, No Vision Changes Cardiovascular : No Chest Pain, No SOB, No Dyspnea on Exertion, No Orthopnea, No Edema, No Palpitations Respiratory : No Cough, No Sputum, No Wheezing, No Smoke Exposure, No Dyspnea Gastrointestinal : No Nausea, No Vomiting, No Diarrhea, No Constipation, No abdominal Pain, No Hematochezia, No Melena Genitourinary : Currently menstruating, No Dysuria, No Urinary Frequency, No Hematuria, No Urinary Incontinence, No Urgency. Complaining of left-sided Flank Pain, No Urinary Flow Changes, No Hesitancy Musculoskeletal : No joint pain, No Myalgias, No Joint Swelling Skin : No Skin Lesions, No rash Neuro : No Weakness, No Numbness, No Paresthesias, No Loss of Consciousness, No Dizziness, No Headache Psych : No Anxiety/Panic, No Depression, No SI/HI/AH/VH, No Social Issues, Heme/Lymph: No Bruising, No Bleeding,No Lymphadenopathy Endocrine : No Polyuria, No Polydipsia, No Temperature Intolerance [facility] Past Medical History Medical History Anemia Anxiety ASCUS with positive high risk HPV ASCUS with positive high risk HPV cervical Asthma Depression GERD (gastroesophageal reflux disease) Insomnia Nephrolithiasis Obesity (BMI 30-39.9) Post-operative nausea and vomiting Renal stone Scoliosis Surgical History History of excision of pilonidal cyst Hx of lithotripsy Hx of tubal ligation Family History Family History Father No problems noted. Mother Diabetes Maternal Grandmother COPD (chronic obstructive pulmonary disease) Paternal Grandfather No problems noted. 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 Oriented X3. No acute distress. Does not seem visibly uncomfortable, sitting in bed, using her phone Eyes: Pupils equal, round and reactive to light. ENT: Pharynx normal. Neck: Normal inspection. Neck supple. No lymph nodes noted. No crepitus CVS: Normal heart rate and rhythm. Pulses normal. Normal S1 and S2 Respiratory: No respiratory distress. Breath sounds normal. No Wheezing. No rales Abdomen: Soft and nontender. No rigidity. No distention. Skin: Skin warm and dry. Normal skin color. Normal skin turgor. Extremities: No lower extremity edema. No Lacerations. No Rash Neuro: Oriented X 3. No motor deficit. No sensory deficit. Moving all extremities. No slurred speech. CN 2 through 12 grossly intact Psych: calm, cooperative, normal affect Course Course Course Narrative: Patient's white blood cell count within normal limits, BUN creatinine within normal limits, no UTI but there is blood in the urine (patient menstruating.) Patient was given 1 dose of IM Toradol, ODT Zofran. I discussed the labs with the patient, white blood cell count within normal limits, no UTI. CT scan shows moderate left hydro ureter or nephrosis, there was a 4 mm obstructing calculus at the level of the UVJ Patient really has an appointment pending with Dr. Ovalle for her procedure MDM - Abdominal Pain Lab Data Result diagrams: 11/16/21 16:50 11/16/21 16:50 Labs: Lab Results 11/16/21 11/16/21 11/16/21 Range/Units 16:46 16:50 16:50 WBC 8.8 (4.8-10.8) X10*3/uL RBC 4.66 (4.20-5.50) X10*6/uL Hgb 13.3 (12.0-16.0) g/dl Hct 39.7 (37.0-47.0) % MCV 85.2 (80.0-98.0) fL MCH 28.5 (27.0-33.0) pg MCHC 33.5 (31.0-35.0) g/dl RDW 12.8 (11.0-16.0) % Plt Count 431 H (160-400) X10*3/uL MPV 9.4 (9.4-12.3) fL Absolute Nucleated RBC 0.000 (0.0-0.012) X10*3/uL Nucleated RBC % (auto) 0.0 (0.0-0.2) /100WBC Sodium 141 (135-145) mmol/L Potassium 3.6 (3.3-5.1) mmol/L Chloride 105 (96-108) mmol/L Carbon Dioxide 25 (22-29) mmol/L Anion Gap 15 (12-20) BUN 12 (9-16) mg/dL Creatinine 0.83 (0.5-1.4) mg/dL Estim Creat Clear Calc 83.2 Estimated GFR > 60 Random Glucose 119 H (60-115) mg/dL Calcium 9.2 (8.4-10.2) mg/dL Urine Color YELLOW Urine Appearance HAZY Urine pH 5.5 (5.0-8.0) Ur Specific [place] >= 1.030 H (1.005-1.025) Urine Protein 1+ H (NEG-TRACE) MG/DL Urine Glucose (UA) NEG (NEG) MG/DL Urine Ketones NEG (NEG) MG/DL Urine Blood 3+ H (NEG) Urine Nitrite NEG (NEG) Ur Leukocyte Esterase NEG (NEG) Urine RBC TNTC H (0) /HPF Urine WBC 1-4 (0-4) /HPF Ur Squamous Epith Cells 3+ /LPF Urine Bacteria NONE /LPF Discharge Plan Discharge Clinical Impression: Ureterolithiasis Patient Disposition: Home, Self-Care Instructions: Kidney Stones (ED) Additional Instructions: Please follow-up with your primary care physician tomorrow. If you have any worsening or new symptoms, please return to the emergency room or call 911 Prescriptions: New ketorolac 10 mg tablet 10 mg PO BID PRN (Reason: pain) 5 Days Qty: 7 0RF Rx Instructions: Do not use this medication with naproxen, ibuprofen, Aleve, or any other NSAIDs, only use Tylenol if needed tamsulosin 0.4 mg capsule 0.4 mg PO DAILY Qty: 10 0RF prednisone 20 mg tablet 20 mg PO DAILY Qty: 3 0RF No Action loratadine 10 mg tablet 10 mg PO DAILY PRN (Reason: Allergy Symptoms) Qty: 90 8RF epinephrine [EpiPen 2-Dylan] 0.3 mg/0.3 mL auto-injector 0.3 mg IM Q10M PRN (Reason: anaphylaxis) Qty: 2 3RF Rx Instructions: for 2 doses triamcinolone acetonide 0.5 % cream 1 appl topical DAILY PRN (Reason: rash) Qty: 15 5RF omeprazole 20 mg capsule,delayed release(DR/EC) 20 mg PO DAILY Qty: 30 0RF lorazepam 1 mg tablet 1 mg PO BEDTIME Qty: 30 5RF fluticasone propionate [Flonase Allergy Relief] 50 mcg/actuation spray,suspension 1 spray intranasal DAILY 10 Days Qty: 150 7RF Rx Instructions: administer into each nostril trazodone 50 mg tablet 50 mg PO BEDTIME PRN (Reason: insomnia) Qty: 90 8RF ferrous sulfate 325 mg (65 mg iron) tablet 325 mg PO BID Qty: 90 8RF tramadol 50 mg tablet 50 mg PO Q8H PRN (Reason: pain) Qty: 15 0RF ibuprofen 800 mg tablet 800 mg PO TID PRN (Reason: pain) Qty: 90 8RF bupropion HCl 150 mg tablet sustained-release 12 hr 1 tab PO DAILY albuterol sulfate [ProAir HFA] 90 mcg/actuation HFA aerosol inhaler 2 puff inhalation Q4-6H PRN (Reason: shortness of breath or wheezing) 30 Days Qty: 8.5 0RF tizanidine 2 mg tablet 2 mg PO Q8H PRN (Reason: muscle spasticity) Qty: 90 8RF pyridoxine (vitamin B6) 100 mg tablet 100 mg PO DAILY 90 Days Qty: 90 3RF
[2021-11-16] MEDS: Ketorolac Tromethamine 60 MG/2 ML VIAL IM (22:12)
[2021-11-16] MEDS: Ondansetron ODT 4 MG TAB.RAPDIS TRANSLINGU (22:12)
== END 2021-11-16 22:21 | disposition home or self-care (01) ==
PROVIDERS: Emergency Provider Emergency Medicine; PCP Internal Medicine
DX: N13.2 Hydronephrosis with renal and ureteral calculous obstruction (principal); E66.9 Obesity, unspecified; Z68.35 Body mass index [BMI] 35.0-35.9, adult; Z87.442 Personal history of urinary calculi
CPT/HCPCS: 36415; 74176; 80048; 81001; 81003; 85027; 96372; 99284; J1885

== ENCOUNTER 2021-11-19 10:02 | Day surgery (SDC) | payer OTHER, SELFPAY ==
--- NOTE | 2021-11-16 12:55 | HO.ANESPROP2 ---
Documented by User: Giuliana Donohue NP 11/16/21 12:57 HPI - Anesthesia Eval Consult details Narrative: 46yo F for Left Cystoscopy, Ureteroroscopy, Retro, Laser possible stent s/p ESWL 2019 with MAC PMFSH Active Problems Active Problems: All Active Problems (Updated 11/13/21 @ 14:23 by Brielle Juan RN) HPV (human papilloma virus) infection (Acute) SYLVESTER I (cervical intraepithelial neoplasia I) (Acute) Sore throat (viral) (Acute) Physical exam (Acute) Well woman exam (Acute) Encounter for screening colonoscopy (Acute) Elevated blood pressure reading (Acute) Obesity (BMI 30-39.9) (Acute) Obesity (Acute) Anemia (Acute) Asthma (Acute) Nephrolithiasis (Acute) Renal stone (Acute) Anemia (Acute) Past Medical History Medical History Anemia Anxiety ASCUS with positive high risk HPV ASCUS with positive high risk HPV cervical Asthma Depression GERD (gastroesophageal reflux disease) Insomnia Nephrolithiasis Obesity (BMI 30-39.9) Post-operative nausea and vomiting Renal stone Scoliosis Family History Family History Father No problems noted. Mother Diabetes Maternal Grandmother COPD (chronic obstructive pulmonary disease) Paternal Grandfather No problems noted. Paternal Grandmother Medical history unknown Family history of problems with anesthesia: No Surgical History Surgical History History of excision of pilonidal cyst Hx of lithotripsy Hx of tubal ligation History of Problems with Anesthesia: Yes (PONV) Social History Social History Housing: House Alcohol intake: never Patient Tobacco Use Status: Never used Tobacco e-Cigarette/Vaping Use: Never Used Second Hand Smoke Exposure: No Are you DNR?: No Advance Directives: No Advance Directives Information Provided: Yes Nutrition Risks: No Nutritional Risk FDLMP: 11/13/21 service: No Current occupational status: employed 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 Sexual orientation: Straight/Heterosexual Gender identity: Female Cognitive needs: No Hearing needs: No Vision needs: Yes Meds Allergies Allergy/AdvReac Type Severity Reaction Status Date / Time almond Allergy Severe ANAPHYLAXIS Verified 11/19/21 14:10 latex [Latex] Allergy Severe RASH/SWELLI Verified 11/19/21 14:10 NG shrimp Allergy Severe Anaphylaxis Verified 11/19/21 14:10 naproxen [NAPROXEN] Allergy Intermediate HIVES Verified 11/19/21 14:10 amoxicillin [AMOXICILLIN] Allergy Mild HIVES Verified 11/19/21 14:10 FRUIT Allergy Severe ANAPHYLAXIS Uncoded 11/19/21 14:10 Environmental Allergy Unknown Itching Uncoded 11/19/21 14:10 Home Medications Medication Instructions Recorded Confirmed Last Taken Type bupropion HCl 150 mg tablet,12 hr 1 tab PO DAILY 01/26/20 11/13/21 Unknown History sustained-release Exam Exam Date and Time: November 16, 2021 1255 Pertinent Lab Results Pertinent Lab Results: Laboratory Tests 07/20/21 07/20/21 09:43 09:43 WBC 6.2 Hgb 12.9 Hct 39.9 Plt Count 374 Sodium 139 Potassium 3.7 Chloride 109 H Carbon Dioxide 25 BUN 13 Creatinine 0.75 Narrative Narrative: EKG 07/2021 Vent. Rate : 086 BPM ? ? Atrial Rate : 086 BPM ?? P-R Int : 136 ms? QRS Dur : 086 ms ? ? QT Int : 372 ms ? ? ? P-R-T Axes : 015 008 037 degrees ?? QTc Int : 445 ms ? Normal sinus rhythm Normal ECG When compared with ECG of 20-APR-2019 09:58, No significant change was found Assessment and Plan Assessment Anesthesia Assessment: Chart Reviewed Final Anesthetic Review Family History of Problems with Anesthesia: No History of Problems with Anesthesia: Yes (PONV) Documented by User: Paulie Mcclure MD 11/19/21 14:37 [facility] Past Medical History Medical History Anemia Anxiety ASCUS with positive high risk HPV ASCUS with positive high risk HPV cervical Asthma Depression GERD (gastroesophageal reflux disease) Insomnia Nephrolithiasis Obesity (BMI 30-39.9) Post-operative nausea and vomiting Renal stone Scoliosis Family History Family History Father No problems noted. Mother Diabetes Maternal Grandmother COPD (chronic obstructive pulmonary disease) Paternal Grandfather No problems noted. 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 Sexual orientation: Straight/Heterosexual Gender identity: Female Cognitive needs: No Hearing needs: No Vision needs: Yes Meds Allergies Allergy/AdvReac Type Severity Reaction Status Date / Time almond Allergy Severe ANAPHYLAXIS Verified 11/19/21 14:10 latex [Latex] Allergy Severe RASH/SWELLI Verified 11/19/21 14:10 NG shrimp Allergy Severe Anaphylaxis Verified 11/19/21 14:10 naproxen [NAPROXEN] Allergy Intermediate HIVES Verified 11/19/21 14:10 amoxicillin [AMOXICILLIN] Allergy Mild HIVES Verified 11/19/21 14:10 FRUIT Allergy Severe ANAPHYLAXIS Uncoded 11/19/21 14:10 Environmental Allergy Unknown Itching Uncoded 11/19/21 14:10 Home Medications Medication Instructions Recorded Confirmed Last Taken Type bupropion HCl 150 mg tablet,12 hr 1 tab PO DAILY 01/26/20 11/13/21 Unknown History sustained-release Exam Airway Mallampati Class: I TM Dist: >3cm Neck ROM: Full Loose/Missing/Broken Teeth: No (Rrr) Lungs: clear Assessment and Plan Final Anesthetic Review NPO: Yes ASA Class: II Final Preanesthetic Review: No Changes in Pt Med Stat, Meds/Allgs Chart Reviewed, Consent Obtained/Reviewed and Anes Risks/Benef Reviewed Patient Risk: Intermediate Assessment/Block/Sedation in SS: Assess/Block/Sedation-SS Anesthetic Plan Anesthetic Plan: GA Disposition: Standard PACU
[2021-11-19] VITALS (7 sets, daily range): BP systolic 106–127; BP diastolic 66–79; PULSE 55–70; RESP 12–16; TEMP 36.4–36.6; O2SAT 96–99; BMI 35.6
--- NOTE | ~2021-11-19 | FL_ITS ---
EXAMINATION: XR FLUOROSCOPY WITH IMAGES CLINICAL INFORMATION: Urinary tract calculi, moderate left hydronephrosis. COMPARISON: CT abdomen and pelvis noncontrast 11/16/2021. TECHNIQUE: Fluoroscopy performed by Dr. Bryan Ovalle. Fluoroscopy time: 0.2 minutes. Cumulative Dose: 4.78 mGy. DAP: 1.30 Gy-cm2. Images: 2. FINDINGS: There is guidewire in the left ureter extending beyond field of view. Spot view pelvis shows lower left ureteral stent in position. FL/FL guidance in OR IMPRESSION: Fluoroscopy for urologic procedures.
[2021-11-19] MEDS: Lactated Ringers 1,000 ML 100 ML IVCONT (13:44)
[2021-11-19] MEDS: Acetaminophen 325 MG TABLET 650 MG PO (13:56)
[2021-11-19] MEDS: Scopolamine 1.5 MG PATCH.TD.3 TRANSDERMA (13:57)
[2021-11-19] MEDS: levoFLOXacin 500 MG TABLET PO (13:57)
--- NOTE | 2021-11-19 14:20 | MHC.SHP ---
Pre-Procedural Eval Section A Date of Service: 11/19/21 The patient is an INPATIENT: No Changes since office visit: No Cold of Flu in the past 2 weeks, No New Medical Problems, No Changes in Medication and No Patient answered all questions The History & Physical has been completed within 30 days and I have reviewed it.: Yes Section B Chief Complaint: kidney stone Details of Present Illness: distal left ureteric stone. Cystoscopy, left retrograde, left ureteroscopy with laser lithotripsy and stent placement. Relevant Family History (Specify if Yes): No Relevant Social History: None Present Medications: see Short Stay Collaborative assessment Medical History: No relevant PMH History of Previous Operations: No relevant previous surgery Allergies: Allergies Allergy/AdvReac Type Severity Reaction Status Date / Time almond Allergy Severe ANAPHYLAXIS Verified 11/19/21 14:10 latex [Latex] Allergy Severe RASH/SWELLI Verified 11/19/21 14:10 NG shrimp Allergy Severe Anaphylaxis Verified 11/19/21 14:10 naproxen [NAPROXEN] Allergy Intermediate HIVES Verified 11/19/21 14:10 amoxicillin [AMOXICILLIN] Allergy Mild HIVES Verified 11/19/21 14:10 FRUIT Allergy Severe ANAPHYLAXIS Uncoded 11/19/21 14:10 Environmental Allergy Unknown Itching Uncoded 11/19/21 14:10 Review of Systems Sugical H&P ROS: Negative: Constitution, Cardiovascular, Respiratory, Neurological, Psychiatric, Hem-Onc, Allergic/Immunologic, Gastrointestinal, Genitourinary, Musculoskeletal, Integumentary, Endocrine and Eyes/Ears/Nose/Throat Exam Surgical H&P Exam: Normal: HEENT, Normal: Heart, Normal: Lungs, Normal: Extremities, Normal: Abdomen, Normal: Skin and Normal: Neurological Plan Diagnosis/Plan: Unchanged I have reviewed the history and physical and performed a pertinent physical examination on my patient. No changes have occurred unless specified.
--- NOTE | 2021-11-19 15:23 | W.PM.OPN ---
Operative Note Operative Note Date of Service: 11/19/21 Narrative: PreOperative Diagnosis: distal left ureteric stone Post Operative Diagnosis: distal left ureteric stone Procedure: - cystoscopy, left retrograde - left dilatation of ureteric orifice under fluoroscopy - left ureteroscopy, laser lithotripsy, stone basketing - left stent placement Surgeon: Dr Bryan Ovalle Anesthesia: General Indications for procedure: distal left 4 mm Ureteric stone. Failed to pass with conservative therapy. Persistent pain. presents for definitive intervention Procedure: After informed consent was verified patient was brought to the operating placed in supine position. Anesthesia was administered per protocol. Patient was placed in modified dorsal lithotomy position and prepped and draped in a sterile fashion. Safety pause time-out and side of surgery confirmed. Antibiotics confirmed. A 22 Armenian cystoscope was inserted per urethra. Bladder was normal in its entirety. Both ureteric orifices were in normal position. left ureteric orifice was clearly swollen presumed secondary to obstructing stone. The Left ureteric orifice was cannulated and a retrograde examination was performed. filling defect in distal left ureter with mild hydroureteronephrosis . A Sensor guidewire was placed up to the level of the renal pelvis under fluoroscopy. the open-ended catheter was advanced in order to dilate the ureteric orifice. The rigid cystoscope was removed. The semi rigid ureteral scope was placed alongside the Sensor guidewire. Stone was encountered in using a 362 micron holmium fiber the stone was broken into small pieces. Flat wire basket was used to remove fragments. These were sent for analysis. A 6 Armenian by 24 cm double-J stent was placed into the renal pelvis and bladder under a combination of fluoroscopy and direct visualization. The bladder was emptied. The patient tolerated the procedure well and was extubated in the operating room, and transferred in stable condition to the recovery area. Pathology: stones Drains: double-J stent
[2021-11-19] MEDS: traMADoL HCL 50 MG TABLET PO (15:46)
[2021-11-19] MEDS: Phenazopyridine HCL 100 MG TABLET PO (15:47)
[2021-11-23 03:17] LABS: Stone Source LEFT KIDNEY STONE
== END 2021-11-19 16:55 | disposition home or self-care (01) ==
PROVIDERS: PCP Internal Medicine; Visit Provider Urology
PROC: (CPT 52356; principal; 2021-11-19 12:30)
DX: N20.1 Calculus of ureter (principal); Z87.442 Personal history of urinary calculi; N28.1 Cyst of kidney, acquired; J45.909 Unspecified asthma, uncomplicated; K21.9 Gastro-esophageal reflux disease without esophagitis; D64.9 Anemia, unspecified; Z79.899 Other long term (current) drug therapy; Z88.0 Allergy status to penicillin; Z91.040 Latex allergy status
CPT/HCPCS: 52356; 82365; 88300; C1758; C1769; C2617; J1100; J2250; J2405; J3010; Q9967

== ENCOUNTER → 2021-11-27 09:52 | Outpatient (BNVA) | payer OTHER, SELFPAY | PROVIDERS: PCP Internal Medicine; Visit Provider Urology | DX: N20.0 Calculus of kidney (principal); Z46.6 Encounter for fitting and adjustment of urinary device | CPT/HCPCS: 52310; 99212 ==

== ENCOUNTER → 2022-04-24 09:32 | Outpatient (BNVA) | payer OTHER, SELFPAY | PROVIDERS: PCP Internal Medicine; Visit Provider Student in an Organized Health Care Education/Training Program | DX: M54.2 Cervicalgia (principal); M25.551 Pain in right hip | CPT/HCPCS: 99202 ==

== ENCOUNTER 2022-07-18 12:41 | Outpatient (REF) | payer OTHER, SELFPAY ==
--- NOTE | ~2022-07-18 | MM_ITS ---
EXAMINATION: MM SCREENING DIGITAL BREAST TOMOSYNTHESIS, BILATERAL CLINICAL INFORMATION: Screening. Asymptomatic. The lifetime risk of breast cancer based on the Tyrer-Cuzick Model is 8%. COMPARISON: Mammography: July 05, 2021 and studies dating back to May 18, 2017 TECHNIQUE: Digital breast tomosynthesis is performed in both the craniocaudal and mediolateral oblique views along with computer-aided detection (CAD). Synthesized 2D images are generated from the tomosynthesis. FINDINGS: There are scattered areas of fibroglandular density (ACR BI-RADS breast composition Category b). There are no significant masses, abnormal calcifications, or other abnormalities. MM/MM tomosynthesis screening BI IMPRESSION: No significant changes from prior exam. ASSESSMENT: BI-RADS 1: Negative RECOMMENDATION: Routine annual mammography screening. This patient's information was entered into a reminder system with a target due date for their next mammogram.
== END 2022-07-18 12:42 | disposition home or self-care (01) ==
LOC: HO.MAMMO 12:41
PROVIDERS: Visit Provider Internal Medicine
DX: Z12.31 Encounter for screening mammogram for malignant neoplasm of breast (principal)
CPT/HCPCS: 77063; 77067

== ENCOUNTER 2022-08-12 12:14 | Outpatient (REF) | payer OTHER, SELFPAY ==
--- NOTE | ~2022-08-12 | US_ITS ---
EXAMINATION: US RETROPERITONEAL LIMITED (RENAL ONLY) CLINICAL INFORMATION: Calculus of kidney. COMPARISON: CT abdomen and pelvis without and with contrast dated 11/16/2021. Retroperitoneal (renal only) ultrasounds dated 08/15/2021 TECHNIQUE: Real-time imaging of the kidneys. FINDINGS: RIGHT KIDNEY: 12.2 x 4.9 x 4.5 cm (SAG x AP x TRV). The kidney is normal in size, contour, and echogenicity. Renal cortical thickness is normal. No hydronephrosis. Benign-appearing renal cysts measuring up to 1.5 cm, no follow-up imaging recommended. Nonobstructing stones measuring up to 1.1 cm in the lower pole, previously 5 mm, increased in size from prior CT. LEFT KIDNEY: 11.4 x 5.6 x 4.0 cm (SAG x AP x TRV). The kidney is normal in size, contour, and echogenicity. Renal cortical thickness is normal. No focal parenchymal lesions or hydronephrosis. Nonobstructing stones measuring up to 1 cm in the lower pole dominant from prior. Partially imaged liver appears echogenic suggestive of hepatic steatosis or underlying liver disease. This could be further characterized with a dedicated right upper quadrant ultrasound if clinically indicated. US/US renal BI IMPRESSION: Increase in size of few right renal stones measuring up to 1.1 cm and new nonobstructing left stones measuring up to 1 cm. Partially imaged liver appears echogenic suggestive of hepatic steatosis or underlying liver disease. This could be further characterized with a dedicated right upper quadrant ultrasound if clinically indicated.
== END 2022-08-12 12:15 | disposition home or self-care (01) ==
LOC: HO.US 12:14
PROVIDERS: PCP Internal Medicine; Visit Provider Urology
DX: N20.0 Calculus of kidney (principal)
CPT/HCPCS: 76775

== ENCOUNTER 2022-09-18 11:12 | Outpatient (REF) | payer OTHER, SELFPAY ==
[2022-09-21 01:04] LABS: HPV mRNA E6/E7 rflx Not Detected (Not Detected)
== END 2022-09-18 11:13 | disposition home or self-care (01) ==
LOC: HO.LNP 11:12
PROVIDERS: PCP Internal Medicine; Visit Provider Obstetrics & Gynecology
DX: Z01.419 Encounter for gynecological examination (general) (routine) without abnormal findings (principal)
CPT/HCPCS: 87624; 88142

== ENCOUNTER 2022-09-19 13:47 | Outpatient (REF) | payer OTHER, SELFPAY ==
--- NOTE | ~2022-09-19 | XR_ITS ---
EXAMINATION: XR FOOT, LEFT CLINICAL INFORMATION: Left foot pain. COMPARISON: None available. TECHNIQUE: AP, lateral, and oblique views of the left foot. An indicator arrow points to the fifth metatarsal. FINDINGS: There is no acute fracture or dislocation. The tarsal bones are normally aligned. There is a small retrocalcaneal spur. The soft tissues are unremarkable. XR/XR foot LT min 3V IMPRESSION: Small degenerative plantar calcaneal spur. No acute fracture.
== END 2022-09-19 13:48 | disposition home or self-care (01) ==
LOC: HO.HMGCX 13:47
PROVIDERS: PCP Internal Medicine; Visit Provider Nurse Practitioner Family
DX: M79.672 Pain in left foot (principal)
CPT/HCPCS: 73630

== ENCOUNTER 2023-03-07 13:23 | Outpatient (AMB) | payer OTHER, SELFPAY ==
--- NOTE | 2023-03-07 13:24 | A.OFFPC_ITS ---
Vital Signs 03/07/23 13:25 Height 5 ft 1 in Weight 191 lb BMI 36.1 BP 118/62 Blood Pressure Location Lt brachial Position Sitting Pulse 70 Pulse Source Pulse Oximeter Pulse Oximetry (%) 9 L Oxygen Delivery Method Room Air Intake Visit Reasons: swollen fingers up to elbow Grant Officer: Not Required per policy Accompanied by: Self / Same As Patient Allergies almond Allergy (Severe, Verified 09/19/22 12:46) ANAPHYLAXIS latex [Latex] Allergy (Severe, Verified 09/19/22 12:46) RASH/SWELLING shrimp Allergy (Severe, Verified 09/19/22 12:46) Anaphylaxis naproxen [NAPROXEN] Allergy (Intermediate, Verified 09/19/22 12:46) HIVES amoxicillin [AMOXICILLIN] Allergy (Mild, Verified 09/19/22 12:46) HIVES FRUIT Allergy (Severe, Uncoded 09/19/22 12:46) ANAPHYLAXIS Environmental Allergy (Unknown, Uncoded 09/19/22 12:46) Itching Medication List - Last Reconciled 03/07/23 by Harvinder Pugh MD albuterol sulfate 90 mcg/actuation (ProAir HFA) 2 puffs inhalation Q4-6H PRN 30 days bupropion HCl 1 tab PO DAILY cyclobenzaprine 5 mg PO BEDTIME PRN epinephrine (EpiPen 2-Dylan) 0.3 mg (0.3 mL) IM Q10M PRN ferrous sulfate 325 mg PO BID fluticasone propionate 50 mcg/actuation (Flonase Allergy Relief) 1 spray intranasal DAILY 10 days lisinopril 10 mg PO DAILY loratadine 10 mg PO DAILY PRN lorazepam 1 mg PO BEDTIME omeprazole 20 mg PO DAILY pyridoxine (vitamin B6) 100 mg PO DAILY 90 days tizanidine 2 mg PO Q8H PRN trazodone 50 mg PO BEDTIME PRN triamcinolone acetonide 0.5% 1 appl topical DAILY PRN Tobacco use date assessed: 04/30/22 Dental Screening Dental Screen Date: 03/07/23 Did you have a dental visit in the last 12 months?: Yes Did you have a dental problem in the last 6 months where you did not have access to dental care?: No Was dental information given to patient?: Patient has dentist HPI swollen fingers up to elbow HPI Details right wrist anf forarm pain after doing yard work PFSH Medical History GERD (gastroesophageal reflux disease) Post-operative nausea and vomiting Obesity (BMI 30-39.9) ASCUS with positive high risk HPV cervical Renal stone Anemia ASCUS with positive high risk HPV Scoliosis Nephrolithiasis Insomnia Anxiety Depression Asthma Surgical History Hx of lithotripsy History of excision of pilonidal cyst Hx of tubal ligation Family History Father No problems noted. Mother Diabetes Maternal Grandmother COPD (chronic obstructive pulmonary disease) Paternal Grandfather No problems noted. 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 1. Little interest or pleasure in doing things: not at all 2. Feeling down, depressed, or hopeless: not at all 3. Trouble falling or staying asleep, or sleeping too much: not at all 4. Feeling tired or having little energy: not at all 5. Poor appetite or overeating: not at all 6. Feeling bad about yourself - or that you are a failure or have let yourself or your family down: not at all 7. Trouble concentrating on things, such as reading the newspaper or watching television: not at all 8. Moving or speaking so slowly that other people could have noticed. Or the opposite - being so fidgety or restless that you have been moving around a lot more than usual: not at all 9. Thoughts that you would be better off or of hurting yourself in some way: not at all Total score: 0 Depression Screening Interpretation: Negative Depression Screening Done: Yes 64734 - PHQ-9 Billing: Yes Source: Developed by Drs. Virgil Staples, Mariana Hendrickson, Blayne Scott and colleagues, with an educational melecio from [employer]. Thrive Questionnaire Date Thrive assessed: 04/30/22 AUDIT C Alcohol Use Questionnaire (AUDIT-C) 1. How often do you have a drink containing alcohol?: Never 3. How often do you have six or more drinks on one occasion?: Never Total Score: 0 Score Reviewed/Action Taken: Yes ELFEGO-7 AMB Questionnaire ELFEGO-7 Date ELFEGO - 7 assessed: 04/30/22 Source: Developed by Drs. Virgil Staples, Blayne Tadeo and colleagues, with an educational melecio from [employer]. Review of Systems Const Denies chills, Denies headache(s) and Denies weight loss ENT Denies headache(s) Card Denies chest pain, Denies syncope, Denies irregular heart rhythm and Denies dyspnea Resp Denies chest congestion, Denies cough and Denies dyspnea GI Denies abdominal pain, Denies change in stool character, Denies nausea and Denies vomiting Musc Denies deformity and Denies joint swelling Neuro Denies syncope and Denies headache(s) Physical exam (Primary Care) Vital Signs: Last Vital Signs Pulse 70 03/07/23 13:25 BP 118/62 03/07/23 13:25 Pulse Ox 9 L 03/07/23 13:25 Oxygen Delivery Method Room Air 03/07/23 13:25 BMI result Body Mass Index 36.1 Tobacco/Smoking Status: Tobacco use Status Tobacco use date assessed 04/30/22 03/07/23 13:30 Patient Tobacco Use Status Never used Tobacco 03/07/23 13:30 e-Cigarette/Vaping Use Never Used 03/07/23 13:30 PHQ-9: PHQ-9 Score PHQ-9: Total score 0 03/07/23 13:30 Depression Screening Interpretation: Negative Thrive Assessment: Date of Thrive Assessment Date Thrive assessed 04/30/22 03/07/23 13:30 Const General: cooperative, comfortable, no acute distress and alert Neck Neck: Yes no lymphadenopathy Thyroid: Thyroid normal Resp Effort & Inspection: normal respiratory effort Auscultation: clear to auscultation bilaterally Percussion: percussion normal Cardio Jugular venous distension: no JVD Palpation: normal PMI Rate: regular rate Rhythm: regular rhythm Heart sounds: S1 normal heart sound present and S2 normal heart sound present GI Inspection: Yes normal to inspection Palpation (GI): No hepatosplenomegaly present Skin General skin exam: no rashes or lesions noted Extrem General: Yes no clubbing, cyanosis or edema Assessment and Plan Assessment & Plan (1) Tendonitis of wrist, right: Code(s): M77.8 - Other enthesopathies, not elsewhere classified Plan: ice and rx Medications: New tramadol 50 mg PO Q8H 20 tabs 0RF pain Coding Level of Care Code Est Pt Level 3 (25204) Diagnoses Tendonitis of wrist, right M77.8
[2023-03-07 13:25] VITALS: BP 118/62; PULSE 70; O2SAT 9; BMI 36.1
== END 2023-03-07 13:34 | disposition home or self-care (01) ==
PROVIDERS: PCP Internal Medicine; Visit Provider Internal Medicine
DX: M77.8 Other enthesopathies, not elsewhere classified (principal)
CPT/HCPCS: 99213

== ENCOUNTER 2023-03-21 12:43 | Outpatient (AMB) | payer OTHER, SELFPAY ==
[2023-03-21 12:46] VITALS: BP 110/72; PULSE 73; O2SAT 99; BMI 35.7
--- NOTE | 2023-03-21 12:46 | A.OFFPC_ITS ---
Vital Signs 03/21/23 12:46 Height 5 ft 1 in Weight 189 lb BMI 35.7 BP 110/72 Blood Pressure Location Lt brachial Position Sitting Pulse 73 Pulse Source Pulse Oximeter Pulse Oximetry (%) 99 Oxygen Delivery Method Room Air Intake Visit Reasons: Annual Exam Tank Truck Loader Required: No Lead Business Systems Analyst: Not Required per policy Accompanied by: Self / Same As Patient Allergies almond Allergy (Severe, Verified 03/21/23 12:47) ANAPHYLAXIS latex [Latex] Allergy (Severe, Verified 03/21/23 12:47) RASH/SWELLING shrimp Allergy (Severe, Verified 03/21/23 12:47) Anaphylaxis naproxen [NAPROXEN] Allergy (Intermediate, Verified 03/21/23 12:47) HIVES amoxicillin [AMOXICILLIN] Allergy (Mild, Verified 03/21/23 12:47) HIVES FRUIT Allergy (Severe, Uncoded 03/21/23 12:47) ANAPHYLAXIS Environmental Allergy (Unknown, Uncoded 03/21/23 12:47) Itching Medication List - Last Reconciled 03/21/23 by Harvinder Pugh MD albuterol sulfate 90 mcg/actuation (ProAir HFA) 2 puffs inhalation Q4-6H PRN 30 days bupropion HCl 1 tab PO DAILY cyclobenzaprine 5 mg PO BEDTIME PRN epinephrine (EpiPen 2-Dylan) 0.3 mg (0.3 mL) IM Q10M PRN ferrous sulfate 325 mg PO BID fluticasone propionate 50 mcg/actuation (Flonase Allergy Relief) 1 spray intranasal DAILY 10 days lisinopril 10 mg PO DAILY loratadine 10 mg PO DAILY PRN lorazepam 1 mg PO BEDTIME omeprazole 20 mg PO DAILY pyridoxine (vitamin B6) 100 mg PO DAILY 90 days tizanidine 2 mg PO Q8H PRN tramadol 50 mg PO Q8H trazodone 50 mg PO BEDTIME PRN triamcinolone acetonide 0.5% 1 appl topical DAILY PRN Tobacco use date assessed: 04/30/22 Dental Screening Dental Screen Date: 03/21/23 Did you have a dental visit in the last 12 months?: Yes Did you have a dental problem in the last 6 months where you did not have access to dental care?: No Was dental information given to patient?: Patient has dentist HPI Annual Exam HPI Details HTN on Rx; doing well; compliant [facility] Medical History GERD (gastroesophageal reflux disease) Post-operative nausea and vomiting Obesity (BMI 30-39.9) ASCUS with positive high risk HPV cervical Renal stone Anemia ASCUS with positive high risk HPV Scoliosis Nephrolithiasis Insomnia Anxiety Depression Asthma Surgical History Hx of lithotripsy History of excision of pilonidal cyst Hx of tubal ligation Family History Father No problems noted. Mother Diabetes Maternal Grandmother COPD (chronic obstructive pulmonary disease) Paternal Grandfather No problems noted. 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 Virgil Staples, Mariana Hendrickson, Blayne Scott and colleagues, with an educational melecio from [employer]. Review of Systems Const Denies chills, Denies fatigue, Denies headache(s) and Denies weight loss Eyes Denies change in vision, Denies diplopia and Denies eye pain ENT Denies vertigo, Denies dizziness, Denies headache(s) and Denies nasal discharge Card Denies chest pain, Denies rapid heart rate and Denies dyspnea on exertion Resp Denies chest congestion, Denies cough, Denies pain with cough and Denies dyspnea on exertion GI Denies abdominal pain, Denies hematochezia and Denies change in bowel habits Musc Denies myalgias, Denies arthralgias and Denies joint swelling Skin/Breast Denies lesions and Denies unusual bruising Neuro Denies vertigo, Denies dizziness, Denies headache(s) and Denies focal weakness Endo Denies fatigue Physical exam (Primary Care) Vital Signs: Last Vital Signs Pulse 73 03/21/23 12:46 BP 110/72 03/21/23 12:46 Pulse Ox 99 03/21/23 12:46 Oxygen Delivery Method Room Air 03/21/23 12:46 BMI result Body Mass Index 35.7 Tobacco/Smoking Status: Tobacco use Status Tobacco use date assessed 04/30/22 03/21/23 12:51 Patient Tobacco Use Status Never used Tobacco 03/21/23 12:51 e-Cigarette/Vaping Use Never Used 03/21/23 12:51 Thrive Assessment: Date of Thrive Assessment Date Thrive assessed 04/30/22 03/21/23 12:51 Const General: cooperative, healthy appearing and no acute distress Orientation/consciousness: oriented to person, oriented to place and oriented to time HENMT Head: Yes normal to inspection, Yes normocephalic and Yes atraumatic Mouth: Normal oral and palatal mucosa present and tongue normal Throat: Yes posterior oropharynx normal and Yes uvula midline Eyes General: appearance normal, both eyes and all related structures Neck Neck: Yes normal visual inspection, Yes full ROM and Yes no lymphadenopathy Thyroid: Thyroid normal Carotids: normal carotid upstroke Chest Chest palpation & inspection: normal inspection of the chest Resp Effort & Inspection: normal respiratory effort and able to speak in complete sentences Auscultation: clear to auscultation bilaterally Cardio Jugular venous distension: no JVD Palpation: normal PMI Rate: regular rate Rhythm: regular rhythm Heart sounds: S1 normal heart sound present and S2 normal heart sound present GI Inspection: Yes normal to inspection Palpation (GI): Soft to palpation and No hepatosplenomegaly present Auscultation: normal bowel sounds General: Yes no CVA tenderness Back/Spine/Pelvis Back: no CVA tenderness Skin General skin exam: no rashes or lesions noted Neuro General: oriented to person, oriented to place and oriented to time Extrem General: Yes normal to inspection and Yes full ROM Assessment and Plan Assessment & Plan (1) Physical exam: Code(s): Z00.00 - Encounter for general adult medical examination without abnormal findings Plan: stable; labs (2) Hypertension: Code(s): I10 - Essential (primary) hypertension Plan: stable; same rx Orders: Orders Complete Blood Count Auto Diff Today D64.9 - Anemia, unspecified Comprehensive [place]. Panel Fast Today N28.9 - Disorder of kidney and ureter, unspecified Lipid Panel Today E78.5 - Hyperlipidemia, unspecified Referrals Gastroenterology Referral Z12.11 - Encounter for screening for malignant neoplasm of colon Coding Level of Care Code Est Pt Prev Care 40-64y(76135) Diagnoses Physical exam Z00.00 Hypertension I10
== END 2023-03-21 13:05 | disposition home or self-care (01) ==
PROVIDERS: Visit Provider Internal Medicine
DX: Z00.00 Encounter for general adult medical examination without abnormal findings (principal); I10 Essential (primary) hypertension
CPT/HCPCS: 99396

== ENCOUNTER 2023-08-18 13:28 | Outpatient (REF) | payer OTHER, SELFPAY | END 2023-08-18 13:29 | disposition home or self-care (01) | LOC: HO.MAMMO 13:28 | PROVIDERS: PCP Internal Medicine; Visit Provider Internal Medicine | DX: Z12.31 Encounter for screening mammogram for malignant neoplasm of breast (principal) | CPT/HCPCS: 77063; 77067 ==

== ENCOUNTER → 2023-08-18 13:45 | Outpatient (BNV) | payer OTHER, SELFPAY | PROVIDERS: PCP Internal Medicine; Visit Provider Radiology Diagnostic Radiology | DX: Z12.31 Encounter for screening mammogram for malignant neoplasm of breast (principal) | CPT/HCPCS: 77063; 77067 ==

== ENCOUNTER 2023-08-29 08:49 | Outpatient (AMB) | payer OTHER, SELFPAY ==
[2023-08-29 08:52] VITALS: BP 118/70; PULSE 62; O2SAT 100; BMI 36.5
--- NOTE | 2023-08-29 08:52 | MHC.PC.OV ---
Vital Signs 08/29/23 08:52 Height 5 ft 1 in Weight 193 lb BMI 36.5 BP 118/70 Blood Pressure Location Lt brachial Position Sitting Pulse 62 Pulse Source Pulse Oximeter Pulse Oximetry (%) 100 Oxygen Delivery Method Room Air Intake Visit Reasons: Neck pain Solar Power Installer Required: No Visual Merchandise Manager: Not Required per policy Accompanied by: Self / Same As Patient Allergies almond Allergy (Severe, Verified 08/29/23 08:53) ANAPHYLAXIS latex [Latex] Allergy (Severe, Verified 08/29/23 08:53) RASH/SWELLING shrimp Allergy (Severe, Verified 08/29/23 08:53) Anaphylaxis naproxen [NAPROXEN] Allergy (Intermediate, Verified 08/29/23 08:53) HIVES amoxicillin [AMOXICILLIN] Allergy (Mild, Verified 08/29/23 08:53) HIVES FRUIT Allergy (Severe, Uncoded 08/29/23 08:53) ANAPHYLAXIS Environmental Allergy (Unknown, Uncoded 08/29/23 08:53) Itching Medication List - Last Reconciled 08/29/23 by Harvinder Pugh MD albuterol sulfate 90 mcg/actuation (ProAir HFA) 2 puffs inhalation Q4-6H PRN 30 days benzonatate 100 mg PO TID PRN bupropion HCl SR 1 tab PO DAILY cyclobenzaprine 5 mg PO BEDTIME PRN epinephrine (EpiPen 2-Dylan) 0.3 mg (0.3 mL) IM Q10M PRN ferrous sulfate 325 mg PO BID fluticasone propionate 50 mcg/actuation (Flonase Allergy Relief) 1 spray intranasal DAILY 10 days lisinopril 10 mg PO DAILY loratadine 10 mg PO DAILY PRN lorazepam 1 mg PO BEDTIME omeprazole 20 mg PO DAILY pyridoxine (vitamin B6) 100 mg PO DAILY 90 days tizanidine 2 mg PO Q8H PRN tramadol 50 mg PO Q8H trazodone 50 mg PO BEDTIME PRN triamcinolone acetonide 0.5% 1 appl topical DAILY PRN Tobacco use date assessed: 08/29/23 Dental Screening Dental Screen Date: 08/29/23 Did you have a dental visit in the last 12 months?: Yes Did you have a dental problem in the last 6 months where you did not have access to dental care?: No Was dental information given to patient?: Patient has dentist HPI Neck pain HPI Details injured right side of neck lifting a few days ago PFSH Medical History GERD (gastroesophageal reflux disease) Post-operative nausea and vomiting Obesity (BMI 30-39.9) ASCUS with positive high risk HPV cervical Renal stone Anemia ASCUS with positive high risk HPV Scoliosis Nephrolithiasis Insomnia Anxiety Depression Asthma Surgical History Hx of lithotripsy History of excision of pilonidal cyst Hx of tubal ligation Family History Father No problems noted. Mother Diabetes Maternal Grandmother COPD (chronic obstructive pulmonary disease) Paternal Grandfather No problems noted. 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 1. Little interest or pleasure in doing things: not at all 2. Feeling down, depressed, or hopeless: not at all 3. Trouble falling or staying asleep, or sleeping too much: not at all 4. Feeling tired or having little energy: not at all 5. Poor appetite or overeating: not at all 6. Feeling bad about yourself - or that you are a failure or have let yourself or your family down: not at all 7. Trouble concentrating on things, such as reading the newspaper or watching television: not at all 8. Moving or speaking so slowly that other people could have noticed. Or the opposite - being so fidgety or restless that you have been moving around a lot more than usual: not at all 9. Thoughts that you would be better off or of hurting yourself in some way: not at all Total score: 0 Depression Screening Interpretation: Negative Depression Screening Done: Yes 97019 - PHQ-9 Billing: Yes Source: Developed by Drs. Virgil Staples, Blayne Tadeo and colleagues, with an educational melecio from [employer] Thrive Questionnaire Date Thrive assessed: 08/29/23 I am a: Patient What is your living situation today?: I have a steady place to live Within the past 12 months, did the food you bought not last and you didn't have the money to get more?: Never true Within the past 12 months, did you worry whether your food would run out before you got money to buy more?: Never true Do you have trouble paying for medicines?: No Do you have trouble getting transportation to medical appointments?: No Do you have trouble paying your heating and electricity bill?: No Do you have trouble taking care of your child, family member or friend?: No Do you have trouble with day-to-day activities such as bathing, preparing meals, shopping, managing finances, etc.?: No Are you currently unemployed and looking for a job?: No Are you interested in more education?: No Please select the resources that you would like help with: None THRIVE Score: 0 AUDIT C Alcohol Use Questionnaire (AUDIT-C) 1. How often do you have a drink containing alcohol?: Never 3. How often do you have six or more drinks on one occasion?: Never Total Score: 0 Score Reviewed/Action Taken: Yes ELFEGO-7 AMB Questionnaire ELFEGO-7 Date ELFEGO - 7 assessed: 08/29/23 Feeling nervous, anxious, or on edge: 1 = Several days Not being able to stop or control worryin = Not at all Worrying too much about different things: 3 = Nearly every day Trouble relaxin = Several days Being so restless that it is hard to sit still: 3 = Nearly every day Becoming easily annoyed or irritable: 3 = Nearly every day Feeling afraid as if something awful might happen: 0 = Not at all Total ELFEGO-7 score (0-4 normal; 5-9 mild; 10-14 moderate; 15-21 severe): 11 Source: Developed by Drs. Virgil Staples, Blayne Tadeo and colleagues, with an educational melecio from [employer]. Review of Systems Const Denies chills, Denies headache(s) and Denies weight loss ENT Denies headache(s) Card Denies chest pain, Denies syncope, Denies irregular heart rhythm and Denies dyspnea Resp Denies chest congestion, Denies cough and Denies dyspnea GI Denies abdominal pain, Denies change in stool character, Denies nausea and Denies vomiting Musc Denies deformity and Denies joint swelling Neuro Denies syncope and Denies headache(s) Physical exam (Primary Care) Vital Signs: Last Vital Signs Pulse 62 08/29/23 08:52 BP 118/70 08/29/23 08:52 Pulse Ox 100 08/29/23 08:52 Oxygen Delivery Method Room Air 08/29/23 08:52 BMI result Body Mass Index 36.5 Tobacco/Smoking Status: Tobacco use Status Tobacco use date assessed 08/29/23 08/29/23 08:54 Patient Tobacco Use Status Never used Tobacco 08/29/23 08:54 e-Cigarette/Vaping Use Never Used 08/29/23 08:54 PHQ-9: PHQ-9 Score PHQ-9: Total score 0 08/29/23 08:54 Depression Screening Interpretation: Negative Thrive Assessment: Date of Thrive Assessment Date Thrive assessed 08/29/23 08/29/23 08:54 Const General: cooperative, comfortable, no acute distress and alert Neck Neck: Yes no lymphadenopathy Thyroid: Thyroid normal Resp Effort & Inspection: normal respiratory effort Auscultation: clear to auscultation bilaterally Percussion: percussion normal Cardio Jugular venous distension: no JVD Palpation: normal PMI Rate: regular rate Rhythm: regular rhythm Heart sounds: S1 normal heart sound present and S2 normal heart sound present GI Inspection: Yes normal to inspection Palpation (GI): No hepatosplenomegaly present Skin General skin exam: no rashes or lesions noted Extrem General: Yes no clubbing, cyanosis or edema Assessment and Plan Assessment & Plan (1) Cervicalgia: Code(s): M54.2 - Cervicalgia Plan: rx and heat Medications: Changed From cyclobenzaprine only use it as needed. can make you sedated 5 mg PO BEDTIME PRN 10 tabs 1RF muscle spasm To cyclobenzaprine only use it as needed. can make you sedated 5 mg PO Q8H PRN 20 tabs 1RF muscle spasm Coding Level of Care Code Est Pt Level 3 (70526) Diagnoses Cervicalgia M54.2
== END 2023-08-29 11:35 | disposition home or self-care (01) ==
PROVIDERS: PCP Internal Medicine; Visit Provider Internal Medicine
DX: M54.2 Cervicalgia (principal)
CPT/HCPCS: 99213

== ENCOUNTER 2023-09-22 08:24 | Outpatient (REF) | payer OTHER, SELFPAY ==
[2023-10-03 00:39] LABS: HPV mRNA E6/E7 rflx Not Detected (Not Detected)
== END 2023-09-22 08:25 | disposition home or self-care (01) ==
LOC: HO.LNP 08:24
PROVIDERS: Visit Provider Obstetrics & Gynecology
DX: N93.9 Abnormal uterine and vaginal bleeding, unspecified (principal)
CPT/HCPCS: 87624; 88142; 99396

== ENCOUNTER 2023-09-22 08:24 | Outpatient (AMB) | payer OTHER, SELFPAY ==
[2023-09-22 08:30] VITALS: BP 124/82; BMI 36.9
--- NOTE | 2023-09-22 08:30 | MHC.OFFVIS ---
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 Allergies almond Allergy (Severe, Verified 09/22/23 08:33) ANAPHYLAXIS latex [Latex] Allergy (Severe, Verified 09/22/23 08:33) RASH/SWELLING shrimp Allergy (Severe, Verified 09/22/23 08:33) Anaphylaxis naproxen [NAPROXEN] Allergy (Intermediate, Verified 09/22/23 08:33) HIVES amoxicillin [AMOXICILLIN] Allergy (Mild, Verified 09/22/23 08:33) HIVES FRUIT Allergy (Severe, Uncoded 09/22/23 08:33) ANAPHYLAXIS Environmental Allergy (Unknown, Uncoded 09/22/23 08:33) Itching Is last menstrual period known: Yes Last menstrual period: 09/02/23 Post menopausal: No Patient : No HPI Comments Details: Presenting for annual exam. Complaining of irregular menstrual cycles over the last few months Last Pap/HPV was negative in 10/11, the patient had SYLVESTER 1 in 02/07, followed by normal co testing in 03/11 Last Mammogram was BI-RADS 1 in 08/12 No previous screening Colonoscopy, the patient is scheduled with GI for a consult for screening colonoscopy in 11/11 [facility] Medical History GERD (gastroesophageal reflux disease) Post-operative nausea and vomiting Obesity (BMI 30-39.9) ASCUS with positive high risk HPV cervical Renal stone Anemia ASCUS with positive high risk HPV Scoliosis Nephrolithiasis Insomnia Anxiety Depression Asthma Surgical History Hx of lithotripsy History of excision of pilonidal cyst Hx of tubal ligation Family History Father No problems noted. Mother Diabetes Maternal Grandmother COPD (chronic obstructive pulmonary disease) Paternal Grandfather No problems noted. Paternal Grandmother Medical history unknown Social History Housing: House Alcohol intake: never Patient Tobacco Use Status: Never used Tobacco e-Cigarette/Vaping Use: Never Used Second Hand Smoke Exposure: No Patient : No service: No Current occupational status: employed Current occupation: [employer] Sexual orientation: Straight/Heterosexual Gender identity: Female Cognitive needs: No Hearing needs: No Vision needs: Yes (glasses) Female Reproductive History Menstrual Age of Menarche: 13 Duration of menses: 3-5 days Date of last menstrual period: 09/02/23 control method: none Total pregnancies: 1 Full term: 1 Number of Living Children: 1 Date of last pap smear: 09/19/22 History of abnormal pap smear: Yes History of STI: No Date of Mammogram: 08/18/23 History of abnormal mammogram: No Review of Systems Const All systems reviewed & are unremarkable except as noted in HPI and below Card Reports as per HPI Resp Reports as per HPI GI Reports as per HPI and Reports no additional complaints Reports as per HPI Physical Exam Vital Signs: Last Vital Signs BP 124/82 09/22/23 08:30 BMI result Body Mass Index 36.9 Const General: cooperative, healthy appearing and comfortable Chest Chest palpation & inspection: normal inspection of the chest and normal palpation of entire chest wall Breast/axilla inspection: normal inspection of the breasts and normal inspection of the axillae Breast/axilla palpation: normal palpation of the breasts, normal palpation of the axillae and no axillary lymphadenopathy Resp Effort & Inspection: normal respiratory effort Auscultation: clear to auscultation bilaterally Percussion: percussion normal Cardio Palpation: normal PMI Rate: regular rate Rhythm: regular rhythm Heart sounds: no murmurs and no rubs Peripheral pulses: Peripheral pulses 2+ throughout GI Inspection: Yes normal to inspection Palpation (GI): Soft to palpation, nontender, no guarding, not rigid and No hepatosplenomegaly present Percussion: Yes normal to percussion Auscultation: normal bowel sounds Rectal Exam - Female: deferred General: Yes bladder normal to palpation External Female Exam: No lesion Speculum Exam - Vagina: normal appearance of the vagina, normal palpation, normal vaginal discharge and not erythematous Speculum Exam - Cervix: normal appearance of the cervix and normal palpation Bimanual exam- vagina & uterus: normal bimanual exam, normal palpation, uterine size normal, bladder normal to palpation, consistency normal and normal palpation Bimanual Exam- Adnexa, other: normal adnexae, no masses and no tenderness Assessment & Plan Assessment & Plan (1) Well woman exam: Comment: History of SYLVESTER 1 in 01/08 followed by negative co testing in 2020 and 10/11 Code(s): Z01.419 - Encounter for gynecological examination (general) (routine) without abnormal findings Category: Medical Plan: Cotesting done. Instructions given the patient to schedule next screening Mammogram in 08/13. Counseled the patient about the recommended dietary allowance of 1000 mg of Calcium & 600 IU of vitamin D. The patient was instructed to perform monthly self-breast exams and to schedule an annual exam in a year; All questions answered and the patient verbalized understanding. Instructed the patient to schedule annual exam in a year (2) Abnormal uterine bleeding: Code(s): N93.9 - Abnormal uterine and vaginal bleeding, unspecified Category: Medical Plan: Co testing done, GC and chlamydia taken CBC, TSH, prolactin, HCG, FSH/LH and pelvic ultrasound ordered. Discussed with the patient the different causes of abnormal bleeding including thyroid disorders, uterine and ovarian pathology, endometrial hyperplasia, carcinoma and other potential causes. Discussed with the patient the work up including CBC (to r/o anemia), TSH, FSH/LH, prolactin, pelvic Ultrasound, endometrial biopsy to r/o endometrial pathology. All questions answered and the patient verbalized understanding. Instructed the patient to schedule an appointment for an endometrial biopsy in 2 weeks. Orders: Orders HCG Quantitative Today N93.9 - Abnormal uterine and vaginal bleeding, unspecified Prolactin Today N93.9 - Abnormal uterine and vaginal bleeding, unspecified Complete Blood Count no Diff Today N93.9 - Abnormal uterine and vaginal bleeding, unspecified US pelvic and transvaginal Today N93.9 - Abnormal uterine and vaginal bleeding, unspecified TSH reflex Free T4 Today N93.9 - Abnormal uterine and vaginal bleeding, unspecified Lutenizing Hormone Today N93.9 - Abnormal uterine and vaginal bleeding, unspecified Follicle Stimulating Hormone Today N93.9 - Abnormal uterine and vaginal bleeding, unspecified Coding Level of Care Code Est Pt Prev Care 40-64y(18799) Diagnoses Well woman exam Z01.419 Abnormal uterine bleeding N93.9
== END 2023-09-22 08:54 | disposition home or self-care (01) ==
PROVIDERS: Visit Provider Obstetrics & Gynecology
DX: Z01.419 Encounter for gynecological examination (general) (routine) without abnormal findings (principal); N93.9 Abnormal uterine and vaginal bleeding, unspecified
CPT/HCPCS: 99396

== ENCOUNTER 2023-09-22 09:00 | Outpatient (REF) | payer OTHER, SELFPAY ==
[2023-09-22 10:10] LABS: Hematocrit 44.5 % (37.0-47.0); Hemoglobin 14.9 g/dl (12.0-16.0); Mean Corpuscular HGB Conc 33.5 g/dl (31.0-35.0); Mean Corpuscular Hemoglobin 29.5 pg (27.0-33.0); Mean Corpuscular Volume 88.1 fL (80.0-98.0); Mean Platelet Volume 9.9 fL (9.4-12.3); Platelet Count 390 X10*3/uL (160-400); Red Blood Count 5.05 X10*6/uL (4.20-5.50); Red Cell Distribution Width 12.6 % (11.0-16.0); White Blood Count 7.9 X10*3/uL (4.8-10.8)
[2023-09-22 11:12] LABS: HCG Quantitative < 2 mIU/mL; TSH reflex Free T4 1.57 uIU/mL (0.32-4.0)
[2023-09-22 16:07] LABS: CT PCR NOT DETECTED (Not Detect.); NG PCR NOT DETECTED (Not Detect.)
[2023-09-24 09:59] LABS: Follicle Stimulating Hormone 28.1 mIU/mL; Lutenizing Hormone 19.1 mIU/mL; Prolactin 5.4 ng/mL
== END 2023-09-22 09:01 | disposition home or self-care (01) ==
LOC: HO.LAB 09:00
PROVIDERS: PCP Internal Medicine; Visit Provider Obstetrics & Gynecology
DX: N93.9 Abnormal uterine and vaginal bleeding, unspecified (principal)
CPT/HCPCS: 0353U; 83001; 83002; 84146; 84443; 84702; 85027

== ENCOUNTER 2023-10-03 10:55 | Outpatient (REF) | payer OTHER, SELFPAY ==
--- NOTE | ~2023-10-03 | US_ITS ---
EXAMINATION: US PELVIS CLINICAL INFORMATION: Abnormal uterine bleeding, last menstrual period September 02. COMPARISON: None available. TECHNIQUE: Ultrasound of the pelvis is performed using both transabdominal and transvaginal transducers along with Doppler. Transvaginal imaging is performed due to inadequate visualization transabdominally. FINDINGS: The uterus is anteverted and measures 9.5 x 3.7 x 4.3 cm. No discrete fibroids are appreciated. Endometrial thickness is 12 mm. A 0.6 x 0.4 x 0.5 cm echogenic lesion within the endometrium may possibly represent a polyp. No internal vascularity was appreciated. Nabothian cysts in the cervix. Left ovary measures 1.7 x 2.5 x 2.2 cm, volume 5 mL and is difficult to characterize due to bowel gas, but may possibly contain a 2.1 x 2.1 cm complex cystic/solid lesion, possibly representing a corpus luteum. Evaluation is limited due to bowel gas. Right ovary measures 3.4 x 1.9 x 2.3 cm, volume 8 mL. Right ovarian 1.4 x 1.2 x 1.2 cm cyst is likely physiologic. US/US pelvic and transvaginal IMPRESSION: 1. Possible 0.6 cm endometrial polyp. 2. Endometrial thickness of 12 mm. 3. Possible 2.1 cm complex cystic/solid left ovarian lesion is difficult to characterize due to limited visualization due to bowel gas. 4. Heterogeneous uterus. No discrete fibroid appreciated. Gynecologic consultation and correlation with clinical exam recommended to determine further management for this patient with abnormal uterine bleeding. Recommend follow-up ultrasound in 6-8 weeks. This study was presented today October 27, 2023 for interpretation. Stat results provided at this time as requested by referring provider.
== END 2023-10-03 10:56 | disposition home or self-care (01) ==
LOC: HO.US 10:55
PROVIDERS: PCP Internal Medicine; Visit Provider Obstetrics & Gynecology
DX: N93.9 Abnormal uterine and vaginal bleeding, unspecified (principal)
CPT/HCPCS: 76830; 76856

== ENCOUNTER 2023-11-03 12:16 | Outpatient (AMB) | payer OTHER, SELFPAY ==
[2023-11-03 12:40] VITALS: BP 128/78; BMI 36.5
--- NOTE | 2023-11-03 12:40 | A.OFFVIS_ITS ---
Vital Signs 11/03/23 12:40 Height 5 ft 1 in Weight 193 lb BMI 36.5 BP 128/78 Intake Visit Reasons: US follow up/EMB/ ? hyst Business Services Associate Required: No Business Services Associate Services: Business Services Associate Present Information Interpreted: clinical only Form Tamper: Form Tamper Present Allergies almond Allergy (Severe, Verified 11/03/23 12:42) ANAPHYLAXIS latex [Latex] Allergy (Severe, Verified 11/03/23 12:42) RASH/SWELLING shrimp Allergy (Severe, Verified 11/03/23 12:42) Anaphylaxis naproxen [NAPROXEN] Allergy (Intermediate, Verified 11/03/23 12:42) HIVES amoxicillin [AMOXICILLIN] Allergy (Mild, Verified 11/03/23 12:42) HIVES FRUIT Allergy (Severe, Uncoded 11/03/23 12:42) ANAPHYLAXIS Environmental Allergy (Unknown, Uncoded 11/03/23 12:42) Itching Is last menstrual period known: Yes Last menstrual period: 10/15/23 Post menopausal: No Patient : No Do you need a note to return to daycare/school/sports/work: No HPI Comments Details: Presenting for ultrasound follow-up doing well with no complaints. Ultrasound done recently showed the following: The uterus is anteverted and measures 9.5 x 3.7 x 4.3 cm. No discrete fibroids are appreciated. Endometrial thickness is 12 mm. A 0.6 x 0.4 x 0.5 cm echogenic lesion within the endometrium may possibly represent a polyp. No internal vascularity was appreciated. Nabothian cysts in the cervix. Left ovary measures 1.7 x 2.5 x 2.2 cm, volume 5 mL and is difficult to characterize due to bowel gas, but may possibly contain a 2.1 x 2.1 cm complex cystic/solid lesion, possibly representing a corpus luteum. Evaluation is limited due to bowel gas. Right ovary measures 3.4 x 1.9 x 2.3 cm, volume 8 mL. Right ovarian 1.4 x 1.2 x 1.2 cm cyst is likely physiologic. [facility] Medical History GERD (gastroesophageal reflux disease) Post-operative nausea and vomiting Obesity (BMI 30-39.9) ASCUS with positive high risk HPV cervical Renal stone Anemia ASCUS with positive high risk HPV Scoliosis Nephrolithiasis Insomnia Anxiety Depression Asthma Surgical History Hx of lithotripsy History of excision of pilonidal cyst Hx of tubal ligation Family History Father No problems noted. Mother Diabetes Maternal Grandmother COPD (chronic obstructive pulmonary disease) Paternal Grandfather No problems noted. 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 Sexual orientation: Straight/Heterosexual Gender identity: Female Cognitive needs: No Hearing needs: No Vision needs: Yes (glasses) Female Reproductive History Menstrual Age of Menarche: 13 Duration of menses: 3-5 days Date of last menstrual period: 10/15/23 control method: permanent sterilization Total pregnancies: 1 Full term: 1 Review of Systems Card Reports as per HPI and Reports no additional complaints Resp Reports as per HPI and Reports no additional complaints GI Reports as per HPI and Reports no additional complaints Reports as per HPI Physical Exam Vital Signs: Last Vital Signs BP 128/78 11/03/23 12:40 BMI result Body Mass Index 36.5 Const General: cooperative, healthy appearing and comfortable Resp Effort & Inspection: normal respiratory effort Auscultation: clear to auscultation bilaterally Percussion: percussion normal Cardio Palpation: normal PMI Rate: regular rate Rhythm: regular rhythm Heart sounds: no murmurs and no rubs Peripheral pulses: Peripheral pulses 2+ throughout GI Inspection: Yes normal to inspection Palpation (GI): Soft to palpation, nontender, no guarding, not rigid and No hepatosplenomegaly present Percussion: Yes normal to percussion Auscultation: normal bowel sounds Rectal Exam - Female: deferred Results AMB Test Urine AMB Test Urine Negative Last Edit by Deidra Pereira CMA on 11/03/23 13:04 Results Reviewed Results Reviewed: Laboratory Last Values Tst Clinic Negative 11/03/23 13:03 Assessment & Plan Assessment & Plan (1) Endometrial polyp: Code(s): N84.0 - Polyp of corpus uteri Category: Medical Plan: Discussed with the patient the finding on ultrasound showing a 0.6 cm possible endometrial polyp, recommended hysteroscopy D&C possible polypectomy/myomectomy. Discussed with the patient the procedure , all benefits and risks including but not limited to inability to complete the procedure , insufficient endometrial tissue for a complete evaluation of the endometrial cavity , bleeding, infection, possible need for blood transfusion with all its risk ( HIV,syphilis, Hepatitis, anaphylaxis shock, others..), injury to bladder, rectum, possible need for laparoscopy/laparotomy or hysterectomy. The patient verbalized understanding and signed the consent. Instructions given the patient to stay NPO after midnight the day prior to the procedure and to take only the specific medication (s) discussed the morning of the surgical procedure and to schedule a 2 week postoperative appointment (2) Complex ovarian cyst: Code(s): N83.299 - Other ovarian cyst, unspecified side Category: Medical Plan: Discussed with the patient the complex ovarian cyst by ultrasound. Discussed with the patient the Ultrasound findings, the main limitation of transvaginal ultrasonography alone as a diagnostic tool to distinguish benign from malignant masses relates to its lack of specificity and low positive predictive value for cancer. The differential diagnosis discussed with the patient includes the following but not limited to: benign and malignant gynecological and non-gynecological causes. Will proceed with MRI of the pelvis. Instructions given the patient to schedule MRI of the pelvis and a MRI follow-up appointment within 2 weeks. All questions were answered & the patient verbalized understanding and agreed with the plan. Orders: Orders AMB HCG Urine Test Today Z32.02 - Encounter for test, result negative Coding Level of Care Code Est Pt Level 3 (91460) Diagnoses Endometrial polyp N84.0 Complex ovarian cyst N83.299
== END 2023-11-03 13:54 | disposition home or self-care (01) ==
PROVIDERS: PCP Internal Medicine; Visit Provider Obstetrics & Gynecology
DX: N84.0 Polyp of corpus uteri (principal); N83.299 Other ovarian cyst, unspecified side; Z32.02 Encounter for pregnancy test, result negative
CPT/HCPCS: 99213

== ENCOUNTER → 2023-11-03 12:16 | Outpatient (BNVA) | payer OTHER, SELFPAY | PROVIDERS: PCP Internal Medicine; Visit Provider Obstetrics & Gynecology | DX: N84.0 Polyp of corpus uteri (principal); N83.299 Other ovarian cyst, unspecified side | CPT/HCPCS: 81025; 99212 ==

== ENCOUNTER 2023-11-14 07:49 | Day surgery (SDC) | payer OTHER, SELFPAY ==
[2023-11-12 13:29] VITALS: BMI 36.5
[2023-11-14] VITALS (7 sets, daily range): BP systolic 101–118; BP diastolic 7–80; PULSE 56–88; RESP 16–18; TEMP 36.2–36.5; O2SAT 93–99; BMI 36.5
[2023-11-14 08:18] LABS: UPreg QC Valid YES; Urine Pregnancy NEGATIVE (NEGATIVE)
[2023-11-14] MEDS: Scopolamine 1.5 MG PATCH.TD.3 TRANSDERMA (08:31)
[2023-11-14] MEDS: Lactated Ringers 1,000 ML 100 ML IVCONT (08:38)
--- NOTE | 2023-11-14 08:55 | P.CONAN_ITS ---
Documented by User: Giuliana Donohue NP 11/12/23 13:34 HPI - Anesthesia Eval Consult details Narrative: 48yo F for D&C Hysteroscopy possible myomectomy/polypectomy PMFSH Active Problems Active Problems: All Active Problems Complex ovarian cyst (Acute) Endometrial polyp (Acute) Abnormal uterine bleeding (Acute) Foot pain, left (Acute) Cervicalgia (Acute) Greater trochanteric pain syndrome of right lower extremity (Acute) Hypertension (Acute) Allergic rhinitis (Acute) Elevated blood pressure reading (Acute) Encounter for screening colonoscopy (Acute) Well woman exam (Acute) Obesity (Acute) Anemia (Acute) Physical exam (Acute) Sore throat (viral) (Acute) SYLVESTER I (cervical intraepithelial neoplasia I) (Acute) HPV (human papilloma virus) infection (Acute) Obesity (BMI 30-39.9) (Acute) Asthma (Acute) Nephrolithiasis (Acute) Renal stone (Acute) Anemia (Acute) Past Medical History Medical History (Updated 11/14/23 @ 08:10 by Aria Collazo RN) HTN (hypertension) GERD (gastroesophageal reflux disease) Post-operative nausea and vomiting Obesity (BMI 30-39.9) ASCUS with positive high risk HPV cervical Renal stone Anemia ASCUS with positive high risk HPV Scoliosis Nephrolithiasis Insomnia Anxiety Depression Asthma Family History Family History Father No problems noted. Mother Diabetes Maternal Grandmother COPD (chronic obstructive pulmonary disease) Paternal Grandfather No problems noted. Paternal Grandmother Medical history unknown Family history of problems with anesthesia: No Surgical History Surgical History Hx of cystoscopy Hx of lithotripsy History of excision of pilonidal cyst Hx of tubal ligation History of Problems with Anesthesia: Yes (PONV) Social History Social History Housing: House Alcohol intake: never Patient Tobacco Use Status: Never used Tobacco e-Cigarette/Vaping Use: Never Used Second Hand Smoke Exposure: No Use of substances other than those prescribed or required for medical reasons: No Are you DNR?: No Advance Directives: No Advance Directives Information Provided: Yes service: No Current occupational status: employed 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 Sexual orientation: Straight/Heterosexual Gender identity: Female Cognitive needs: No Hearing needs: No Vision needs: Yes (glasses) Meds Allergies Allergy/AdvReac Type Severity Reaction Status Date / Time almond Allergy Severe ANAPHYLAXIS Verified 11/14/23 08:12 latex [Latex] Allergy Severe RASH/SWELLI Verified 11/14/23 08:12 NG shrimp Allergy Severe Anaphylaxis Verified 11/14/23 08:12 environmental allergies Allergy Intermediate Itching Verified 11/14/23 08:12 naproxen [NAPROXEN] Allergy Intermediate HIVES Verified 11/14/23 08:12 amoxicillin [AMOXICILLIN] Allergy Mild HIVES Verified 11/14/23 08:12 FRUIT Allergy Severe ANAPHYLAXIS Uncoded 11/03/23 12:42 Exam Height,Weight and Vital Signs: Height 5 ft 1 in Weight 87.543 kg Assessment and Plan Assessment Anesthesia Assessment: Chart Reviewed Final Anesthetic Review Family History of Problems with Anesthesia: No History of Problems with Anesthesia: Yes (PONV) Documented by User: Aria Manjarrez DO 11/14/23 08:56 HPI - Anesthesia Eval Consult details Narrative: 48yo F for D&C Hysteroscopy possible myomectomy/polypectomy. Hx of PONV. PMFSH Past Medical History Medical History (Updated 11/14/23 @ 08:10 by Aria Collazo RN) HTN (hypertension) GERD (gastroesophageal reflux disease) Post-operative nausea and vomiting Obesity (BMI 30-39.9) ASCUS with positive high risk HPV cervical Renal stone Anemia ASCUS with positive high risk HPV Scoliosis Nephrolithiasis Insomnia Anxiety Depression Asthma Family History Family History Father No problems noted. Mother Diabetes Maternal Grandmother COPD (chronic obstructive pulmonary disease) Paternal Grandfather No problems noted. Paternal Grandmother Medical history unknown Family history of problems with anesthesia: No Surgical History Surgical History Hx of cystoscopy Hx of lithotripsy History of excision of pilonidal cyst Hx of tubal ligation History of Problems with Anesthesia: Yes (PONV) Social History Social History Housing: House Alcohol intake: never Patient Tobacco Use Status: Never used Tobacco e-Cigarette/Vaping Use: Never Used Second Hand Smoke Exposure: No Use of substances other than those prescribed or required for medical reasons: No Are you DNR?: No Advance Directives: No Advance Directives Information Provided: Yes service: No Current occupational status: employed 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 Sexual orientation: Straight/Heterosexual Gender identity: Female Cognitive needs: No Hearing needs: No Vision needs: Yes (glasses) Meds Allergies Allergy/AdvReac Type Severity Reaction Status Date / Time almond Allergy Severe ANAPHYLAXIS Verified 11/14/23 08:12 latex [Latex] Allergy Severe RASH/SWELLI Verified 11/14/23 08:12 NG shrimp Allergy Severe Anaphylaxis Verified 11/14/23 08:12 environmental allergies Allergy Intermediate Itching Verified 11/14/23 08:12 naproxen [NAPROXEN] Allergy Intermediate HIVES Verified 11/14/23 08:12 amoxicillin [AMOXICILLIN] Allergy Mild HIVES Verified 11/14/23 08:12 FRUIT Allergy Severe ANAPHYLAXIS Uncoded 11/03/23 12:42 Exam Exam Date and Time: November 14, 2023 0854 Height,Weight and Vital Signs: Height 5 ft 1 in Weight 87.543 kg Vital Signs Temperature 97.7 F 11/14/23 08:16 Pulse Rate 77 11/14/23 08:16 Respiratory Rate 16 11/14/23 08:16 Blood Pressure 118/80 11/14/23 08:16 Pulse Oximetry 95 11/14/23 08:16 Oxygen Delivery Method Room Air 11/14/23 08:16 Temperature 97.7 F 11/14/23 08:16 Pulse Rate 77 11/14/23 08:16 Respiratory Rate 16 11/14/23 08:16 Blood Pressure 118/80 11/14/23 08:16 Pulse Oximetry 95 11/14/23 08:16 Oxygen Delivery Method Room Air 11/14/23 08:16 Airway Mallampati Class: II TM Dist: >3cm Neck ROM: Full Loose/Missing/Broken Teeth: No (patient denies any loose or broken teeth) Heart: S1S2 Lungs: CTAB Assessment and Plan Assessment Anesthesia Assessment: Anesthesia Plan Discussed and Chart Reviewed Final Anesthetic Review Family History of Problems with Anesthesia: No History of Problems with Anesthesia: Yes (PONV) NPO: Yes ASA Class: II Final Preanesthetic Review: No Changes in Pt Med Stat, Meds/Allgs Chart Reviewed, Consent Obtained/Reviewed and Anes Risks/Benef Reviewed Patient Risk: Low Procedure Risk: Low Anesthetic Plan Anesthetic Plan: GA and Agree w/ Assess. and Plan Disposition: Standard PACU
--- NOTE | 2023-11-14 09:29 | MHC.SHP ---
Pre-Procedural Eval Section A - 24 Hr Update-Section A only Date of Service: 11/14/23 The patient is an INPATIENT: No Changes since office visit: No Cold of Flu in the past 2 weeks, No New Medical Problems, No Changes in Medication and No Patient answered all questions The patient has been examined within 24 hours of the surgical procedure. The History & Physical has been completed within 30 days and I have reviewed it.: Yes Section B - Complete if H&P > 30 days Chief Complaint: Polyp of corpus uteri Allergies: Allergies Allergy/AdvReac Type Severity Reaction Status Date / Time almond Allergy Severe ANAPHYLAXIS Verified 11/14/23 08:12 latex [Latex] Allergy Severe RASH/SWELLI Verified 11/14/23 08:12 NG shrimp Allergy Severe Anaphylaxis Verified 11/14/23 08:12 environmental allergies Allergy Intermediate Itching Verified 11/14/23 08:12 naproxen [NAPROXEN] Allergy Intermediate HIVES Verified 11/14/23 08:12 amoxicillin [AMOXICILLIN] Allergy Mild HIVES Verified 11/14/23 08:12 FRUIT Allergy Severe ANAPHYLAXIS Uncoded 11/03/23 12:42 Plan Diagnosis/Plan: Unchanged I have reviewed the history and physical and performed a pertinent physical examination on my patient. No changes have occurred unless specified. Time Spent With Patient Time: Total time managing care of this patient today ____ minutes.
--- NOTE | 2023-11-14 10:01 | P.BOP_ITS ---
Brief Operative Note Date of Service: 11/14/23 Pre-op diagnosis: Abnormal uterine bleeding, endometrial polyp by ultrasound Post-op diagnosis: same (Endometrial polyp) Procedure: Hysteroscopy D&C, Polypectomy Surgeon: Lyle Mirza MD Anesthesia: GLMA Was an Internal Review And Audit Compliance used for this Procedure?: No Estimated blood loss (mL): 0 Pathology: other (Endometrial Scrapping. Polyp) Condition: stable Disposition: PACU
--- NOTE | 2023-11-14 10:01 | W.PM.OPN ---
Operative Note Operative Note Date of Service: 11/14/23 Narrative: Preop Diagnosis: Abnormal uterine bleeding, Endometrial polyp by US Operation: Diagnostic Hysteroscopy, Dilataion & Curettage and polypectomy Post Op Diagnosis: Endometrial Polyp QBL: Minimal Anesthesia: GLMA Surgeon: Lyle Mirza MD Corrosion Prevention Metal Sprayer: None Complication: None Pathology: Endometrial Scrapings, Endometrial polyp Procedure: The patient was put in the dorsal lithotomy position, scrubbed, and draped in the usual manner. A sterile speculum was inserted in the patient's vagina. The anterior lip of the cervix was grasped with a single tooth tenaculum. The cervix was dilated up to 5 mm, then the scope was inserted in the patient's uterus. Inspection revealed endometrial polyp. The Myosure Reach device was used; it was introduced through the operative channel and polypectomy done with no complications. The scope was then taken out from the uterine cavity, sharp curettings was carried on with minimal to moderate amount of tissues retrieved. At the end of the procedure, all instruments were taken out of the patient uterine and vaginal cavity. The single tooth tenaculum was removed and homeostasis was assured using pressure,. The patient tolerated the procedure well and was transferred to the PACU in a stable condition.
[2023-11-14] MEDS: Acetaminophen 325 MG TABLET 650 MG PO (10:35)
[2023-11-14] MEDS: oxyCODONE HCl Immed Release 5 MG TABLET PO (10:56)
== END 2023-11-14 11:20 | disposition home or self-care (01) ==
PROVIDERS: PCP Internal Medicine; Visit Provider Obstetrics & Gynecology
PROC: 0UDB8ZZ Extraction of Endometrium, Via Natural or Artificial Opening Endoscopic (ICD-10-PCS; CPT 58558; principal; 2023-11-14 10:30)
DX: N84.0 Polyp of corpus uteri (principal); N83.299 Other ovarian cyst, unspecified side; N93.9 Abnormal uterine and vaginal bleeding, unspecified; D64.9 Anemia, unspecified; J45.909 Unspecified asthma, uncomplicated; E66.9 Obesity, unspecified; Z68.36 Body mass index [BMI] 36.0-36.9, adult; F32.A Depression, unspecified; Z79.899 Other long term (current) drug therapy; Z87.442 Personal history of urinary calculi; Z98.51 Tubal ligation status; Z88.1 Allergy status to other antibiotic agents; Z88.6 Allergy status to analgesic agent; Z91.040 Latex allergy status
CPT/HCPCS: 58558; 81025; 88305; J1100; J1885; J2250; J2405; J2704; J3010

== ENCOUNTER → 2023-11-14 07:49 | Outpatient (BNV) | payer OTHER, SELFPAY | PROVIDERS: PCP Internal Medicine; Visit Provider Obstetrics & Gynecology | DX: N84.0 Polyp of corpus uteri (principal) | CPT/HCPCS: 58558 ==

== ENCOUNTER 2023-12-01 11:46 | Outpatient (AMB) | payer OTHER, SELFPAY ==
--- NOTE | 2023-12-01 11:47 | MHC.OFFVIS ---
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: No Information Interpreted: non-clinical & clinical Accompanied by: Self / Same As Patient Allergies almond Allergy (Severe, Verified 12/01/23 11:54) ANAPHYLAXIS latex [Latex] Allergy (Severe, Verified 12/01/23 11:54) RASH/SWELLING shrimp Allergy (Severe, Verified 12/01/23 11:54) Anaphylaxis environmental allergies Allergy (Intermediate, Verified 12/01/23 11:54) Itching naproxen [NAPROXEN] Allergy (Intermediate, Verified 12/01/23 11:54) HIVES amoxicillin [AMOXICILLIN] Allergy (Mild, Verified 12/01/23 11:54) HIVES FRUIT Allergy (Severe, Uncoded 12/01/23 11:54) ANAPHYLAXIS HPI Comments Details: The patient is presenting post hysteroscopy D&C no complaints minimal vaginal bleeding no feverishness chills or abdominal pain. The pathology showed the following: A. Endometrium, polypectomy: Polypoid fragments of inactive endometrium; no atypia identified. B. Endometrium, curettage: - Few superficial fragments and strips of inactive endometrium; no atypia identified. - Scant endocervical and squamous epithelium within normal limits The following workup was done.: H&H= 14.9/44.5 TSH, prolactin, hCG, GC and chlamydia were negative. FSH/LH in the menopausal range Co testing was done was negative. Mammogram was BI-RADS 1. Pelvic ultrasound showed the following: Pelvic ultrasound done on 10/03/2019 showed the following: The uterus is anteverted and measures 9.5 x 3.7 x 4.3 cm. No discrete fibroids are appreciated. Endometrial thickness is 12 mm. A 0.6 x 0.4 x 0.5 cm echogenic lesion within the endometrium may possibly represent a polyp. No internal vascularity was appreciated. Nabothian cysts in the cervix. Left ovary measures 1.7 x 2.5 x 2.2 cm, volume 5 mL and is difficult to characterize due to bowel gas, but may possibly contain a 2.1 x 2.1 cm complex cystic/solid lesion, possibly representing a corpus luteum. Evaluation is limited due to bowel gas. Right ovary measures 3.4 x 1.9 x 2.3 cm, volume 8 mL. Right ovarian 1.4 x 1.2 x 1.2 cm cyst is likely physiologic. US/US pelvic and transvaginal IMPRESSION: 1. Possible 0.6 cm endometrial polyp. 2. Endometrial thickness of 12 mm. 3. Possible 2.1 cm complex cystic/solid left ovarian lesion is difficult to characterize due to limited visualization due to bowel gas. 4. Heterogeneous uterus. No discrete fibroid appreciated. Gynecologic consultation and correlation with clinical exam recommended to determine further management for this patient with abnormal uterine bleeding. Recommend follow-up ultrasound in 6-8 weeks. The patient has pelvic MRI scheduled in 2 weeks [facility] Medical History (Updated 11/14/23 @ 08:10 by Aira Collazo, JUDY) HTN (hypertension) GERD (gastroesophageal reflux disease) Post-operative nausea and vomiting Obesity (BMI 30-39.9) ASCUS with positive high risk HPV cervical Renal stone Anemia ASCUS with positive high risk HPV Scoliosis Nephrolithiasis Insomnia Anxiety Depression Asthma Surgical History Hx of cystoscopy Hx of lithotripsy History of excision of pilonidal cyst Hx of tubal ligation Family History Father No problems noted. Mother Diabetes Maternal Grandmother COPD (chronic obstructive pulmonary disease) Paternal Grandfather No problems noted. 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 Sexual orientation: Straight/Heterosexual Gender identity: Female Cognitive needs: No Hearing needs: No Vision needs: Yes (glasses) Female Reproductive History Menstrual Age of Menarche: 13 Review of Systems Const All systems reviewed & are unremarkable except as noted in HPI and below Reports as per HPI and Reports no additional complaints GI Reports no additional complaints Reports no additional complaints Physical Exam Vital Signs: BMI result Body Mass Index 36.8 Assessment & Plan Assessment & Plan (1) Complex ovarian cyst: Code(s): N83.299 - Other ovarian cyst, unspecified side Category: Medical Plan: Pelvic MRI scheduled in 2 weeks and MRI follow-up appointment afterwards is scheduled. Instructions given the patient to follow-up post pelvic MRI to discuss the results and options of treatment (2) Abnormal uterine bleeding: Code(s): N93.9 - Abnormal uterine and vaginal bleeding, unspecified Category: Medical Plan: Discussed with the patient the results of the work up done , and the intraoperative finding with the pathology results, in addition discussed with the patient options of treatment including Lysteda, BCP's, Mirena IUD, endometrial ablation and hysterectomy. All pros, cons, risks and benefits if each option was discussed with the patient and the patient decided to think about it and get back to us. All questions answered the patient verbalized understanding. Coding Level of Care Code Est Pt Level 3 (87645) Diagnoses Complex ovarian cyst N83.299 Abnormal uterine bleeding N93.9
[2023-12-01 11:54] VITALS: BMI 36.8
== END 2023-12-01 12:31 | disposition home or self-care (01) ==
LOC: HO.HWS 11:46
PROVIDERS: PCP Internal Medicine; Visit Provider Obstetrics & Gynecology
DX: N83.299 Other ovarian cyst, unspecified side (principal); N93.9 Abnormal uterine and vaginal bleeding, unspecified
CPT/HCPCS: 99213

== ENCOUNTER → 2023-12-01 11:46 | Outpatient (BNVA) | payer OTHER, SELFPAY | PROVIDERS: PCP Internal Medicine; Visit Provider Obstetrics & Gynecology | DX: N83.299 Other ovarian cyst, unspecified side (principal); N93.9 Abnormal uterine and vaginal bleeding, unspecified | CPT/HCPCS: 99212 ==

== ENCOUNTER 2023-12-18 10:03 | Outpatient (REF) | payer OTHER, SELFPAY ==
--- NOTE | ~2023-12-18 | MR_ITS ---
EXAMINATION: MRI PELVIS WITH AND WITHOUT CONTRAST CLINICAL INFORMATION: Left ovarian observation and possible endometrial polyp on prior ultrasound. COMPARISON: Pelvic ultrasound 10/03/2023. TECHNIQUE: Multiple routine MRI sequences through the pelvis were obtained on a high-field 1.5 Pam MRI before and after the uneventful administration of 9 mL Gadavist gadolinium-based IV contrast. FINDINGS: UTERUS: Anteverted uterus has a normal configuration. Normal endometrial thickness, 0.4 cm. No discrete endometrial polyp. Junctional zone is normal in signal and thickness. No focal uterine mass seen. CERVIX: Simple appearing nabothian cysts in the cervix measuring up to 0.7 cm. VAGINA: Normal; no mass seen. OVARIES: Symmetric normal appearing ovaries with a few subcentimeter bilateral follicles. KIDNEYS: Two normally positioned kidneys are seen. No hydronephrosis. Multiple benign-appearing cortical cysts in both kidneys. BLADDER: Urinary bladder normal. PELVIC FREE FLUID: No free fluid or ascites. LYMPH NODES: No pathologically enlarged lymph nodes. OSSEOUS STRUCTURES: No acute or suspicious osseous abnormalities. MR/MR pelvis wo/w con IMPRESSION: No significant abnormality in this pelvic MRI. Specifically, no discrete correlate with the possible endometrial polyp described on prior ultrasound and no suspicious left ovarian lesion. Additional evaluation, such as for example with saline ultrasound as clinically warranted. Alternatively, follow-up with routine pelvic ultrasound in 3-6 months is recommended. Electronically signed by: Georgina Yin MD 01/05/2024 12:09 PM EDT
[2023-12-18] MEDS: gadobutroL 10 ML VIAL IVPUSH (11:01)
== END 2023-12-18 10:04 | disposition home or self-care (01) ==
LOC: HO.MRI 10:03
PROVIDERS: PCP Internal Medicine; Visit Provider Obstetrics & Gynecology
DX: N83.299 Other ovarian cyst, unspecified side (principal)
CPT/HCPCS: 72197; A9585

== ENCOUNTER 2024-01-02 09:39 | Outpatient (AMB) | payer OTHER, SELFPAY ==
[2024-01-02 09:42] VITALS: BP 112/70; PULSE 65; O2SAT 96; BMI 35.3
--- NOTE | 2024-01-02 09:42 | MHC.PC.OV ---
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 Accompanied by: Self / Same As Patient Allergies almond Allergy (Severe, Verified 01/02/24 09:47) ANAPHYLAXIS latex [Latex] Allergy (Severe, Verified 01/02/24 09:47) RASH/SWELLING shrimp Allergy (Severe, Verified 01/02/24 09:47) Anaphylaxis environmental allergies Allergy (Intermediate, Verified 01/02/24 09:47) Itching naproxen [NAPROXEN] Allergy (Intermediate, Verified 01/02/24 09:47) HIVES amoxicillin [AMOXICILLIN] Allergy (Mild, Verified 01/02/24 09:47) HIVES FRUIT Allergy (Severe, Uncoded 01/02/24 09:47) ANAPHYLAXIS Medication List - Last Reconciled 01/02/24 by Harvinder Pugh MD albuterol sulfate 90 mcg/actuation (ProAir HFA) 2 puffs inhalation Q4-6H PRN 30 days cyclobenzaprine 5 mg PO Q8H PRN epinephrine (EpiPen 2-Dylan) 0.3 mg (0.3 mL) IM Q10M PRN ferrous sulfate 325 mg PO BID fluticasone propionate 50 mcg/actuation (Flonase Allergy Relief) 1 spray intranasal DAILY 10 days lisinopril 10 mg PO DAILY loratadine 10 mg PO DAILY PRN lorazepam 1 mg PO BEDTIME omeprazole 20 mg PO DAILY pyridoxine (vitamin B6) 100 mg PO DAILY 90 days tizanidine 2 mg PO Q8H PRN tramadol 50 mg PO Q8H triamcinolone acetonide 0.5% 1 appl topical DAILY PRN Tobacco use date assessed: 08/29/23 Dental Screening Dental Screen Date: 08/29/23 HPI Elbow pain HPI Details pain left elbow for a monht; does a lot of gardening and lifting [facility] Medical History (Updated 11/14/23 @ 08:10 by Aria Collazo RN) HTN (hypertension) GERD (gastroesophageal reflux disease) Post-operative nausea and vomiting Obesity (BMI 30-39.9) ASCUS with positive high risk HPV cervical Renal stone Anemia ASCUS with positive high risk HPV Scoliosis Nephrolithiasis Insomnia Anxiety Depression Asthma Surgical History Hx of cystoscopy Hx of lithotripsy History of excision of pilonidal cyst Hx of tubal ligation Family History Father No problems noted. Mother Diabetes Maternal Grandmother COPD (chronic obstructive pulmonary disease) Paternal Grandfather No problems noted. 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 1. Little interest or pleasure in doing things: not at all 2. Feeling down, depressed, or hopeless: not at all 3. Trouble falling or staying asleep, or sleeping too much: not at all 4. Feeling tired or having little energy: not at all 5. Poor appetite or overeating: not at all 6. Feeling bad about yourself - or that you are a failure or have let yourself or your family down: not at all 7. Trouble concentrating on things, such as reading the newspaper or watching television: not at all 8. Moving or speaking so slowly that other people could have noticed. Or the opposite - being so fidgety or restless that you have been moving around a lot more than usual: not at all 9. Thoughts that you would be better off or of hurting yourself in some way: not at all Total score: 0 Depression Screening Interpretation: Negative Depression Screening Done: Yes 37634 - PHQ-9 Billing: Yes Source: Developed by Drs. Virgil Staples, Mariana Hendrickson, Blayne Scott and colleagues, with an educational melecio from [employer]. Thrive Questionnaire Date Thrive assessed: 08/29/23 AUDIT C Alcohol Use Questionnaire (AUDIT-C) 1. How often do you have a drink containing alcohol?: Never 3. How often do you have six or more drinks on one occasion?: Never Total Score: 0 Score Reviewed/Action Taken: Yes ELFEGO-7 AMB Questionnaire ELFEGO-7 Date ELFEGO - 7 assessed: 08/29/23 Source: Developed by Drs. Virgil Staples, Mariana Hendrickson, Blayne Scott and colleagues, with an educational melecio from [employer]. Review of Systems Const Denies chills, Denies headache(s) and Denies weight loss ENT Denies headache(s) Card Denies chest pain, Denies syncope, Denies irregular heart rhythm and Denies dyspnea Resp Denies chest congestion, Denies cough and Denies dyspnea GI Denies abdominal pain, Denies change in stool character, Denies nausea and Denies vomiting Musc Denies deformity and Denies joint swelling Neuro Denies syncope and Denies headache(s) Physical exam (Primary Care) Vital Signs: Last Vital Signs Pulse 65 01/02/24 09:42 BP 112/70 01/02/24 09:42 Pulse Ox 96 01/02/24 09:42 Oxygen Delivery Method Room Air 01/02/24 09:42 BMI result Body Mass Index 35.3 Tobacco/Smoking Status: Tobacco use Status Tobacco use date assessed 08/29/23 01/02/24 09:48 Patient Tobacco Use Status Never used Tobacco 01/02/24 09:48 Tobacco use type Cigarette 01/02/24 09:48 e-Cigarette/Vaping Use Never Used 01/02/24 09:48 PHQ-9: PHQ-9 Score PHQ-9: Total score 0 01/02/24 09:48 Depression Screening Interpretation: Negative Thrive Assessment: Date of Thrive Assessment Date Thrive assessed 08/29/23 01/02/24 09:48 Const General: cooperative, comfortable, no acute distress and alert Neck Neck: Yes no lymphadenopathy Thyroid: Thyroid normal Resp Effort & Inspection: normal respiratory effort Auscultation: clear to auscultation bilaterally Percussion: percussion normal Cardio Jugular venous distension: no JVD Palpation: normal PMI Rate: regular rate Rhythm: regular rhythm Heart sounds: S1 normal heart sound present and S2 normal heart sound present GI Inspection: Yes normal to inspection Palpation (GI): No hepatosplenomegaly present Skin General skin exam: no rashes or lesions noted Extrem General: Yes no clubbing, cyanosis or edema Assessment and Plan Assessment & Plan (1) Elbow pain, left: Code(s): M25.522 - Pain in left elbow Plan: ice nsaids and xr Orders: Orders XR elbow LT 2V Today M25.529 - Pain in unspecified elbow Medications: Refilled fluticasone propionate 50 mcg/actuation (Flonase Allergy Relief) administer into each nostril 1 spray intranasal DAILY 10 days 150 mL 7RF B97.89 - Other viral agents as the cause of diseases classified elsewhere, J02.8 - Acute pharyngitis due to other specified organisms epinephrine (EpiPen 2-Dylan) for 2 doses 0.3 mg (0.3 mL) IM Q10M PRN 2 ea 3RF anaphylaxis loratadine 10 mg PO DAILY PRN 90 tabs 8RF Allergy Symptoms Coding Level of Care Code Est Pt Level 3 (98473) Diagnoses Elbow pain, left M25.522
== END 2024-01-02 09:53 | disposition home or self-care (01) ==
PROVIDERS: PCP Internal Medicine; Visit Provider Internal Medicine
DX: M25.522 Pain in left elbow (principal)
CPT/HCPCS: 99213

== ENCOUNTER 2024-01-02 09:58 | Outpatient (REF) | payer OTHER, SELFPAY ==
--- NOTE | ~2024-01-02 | XR_ITS ---
EXAMINATION: XR ELBOW, LEFT CLINICAL INFORMATION: Pain in the elbow COMPARISON: None available. TECHNIQUE: AP, lateral, and oblique views of the left elbow. FINDINGS: Possible 2 mm ossific fragment between the proximal radius and ulna seen only on the oblique projections. No joint effusion. Remaining bones joints and soft tissues unremarkable. XR/XR elbow LT 2V IMPRESSION: Possible 2 mm ossific fragment between the proximal radius and ulna seen only on the oblique projections. This could reflect a small fracture fragment. If symptoms persist consider follow-up imaging with CT to confirm possible fracture Electronically signed by: Johann Lay MD 01/08/2024 08:06 PM EDT
== END 2024-01-02 09:59 | disposition home or self-care (01) ==
LOC: HO.XRAY 09:58
PROVIDERS: PCP Internal Medicine; Visit Provider Internal Medicine
DX: M25.522 Pain in left elbow (principal)
CPT/HCPCS: 73070

== ENCOUNTER 2024-01-06 14:25 | Outpatient (AMB) | payer OTHER, SELFPAY ==
--- NOTE | 2024-01-06 14:29 | MHC.OFFVIS ---
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 Information Interpreted: non-clinical & clinical Accompanied by: Self / Same As Patient Allergies almond Allergy (Severe, Verified 01/06/24 14:31) ANAPHYLAXIS latex [Latex] Allergy (Severe, Verified 01/06/24 14:31) RASH/SWELLING shrimp Allergy (Severe, Verified 01/06/24 14:31) Anaphylaxis environmental allergies Allergy (Intermediate, Verified 01/06/24 14:31) Itching naproxen [NAPROXEN] Allergy (Intermediate, Verified 01/06/24 14:31) HIVES amoxicillin [AMOXICILLIN] Allergy (Mild, Verified 01/06/24 14:31) HIVES FRUIT Allergy (Severe, Uncoded 01/06/24 14:31) ANAPHYLAXIS HPI Comments Details: Presenting for MRI follow-up done on 01/04 which showed the following: IMPRESSION: No significant abnormality in this pelvic MRI. Specifically, no discrete correlate with the possible endometrial polyp described on prior ultrasound and no suspicious left ovarian lesion. Additional evaluation, such as for example with saline ultrasound as clinically warranted. Alternatively, follow-up with routine pelvic ultrasound in 3-6 months is recommended. Pelvic ultrasound done on 10/27/2023 showed the following: IMPRESSION: 1. Possible 0.6 cm endometrial polyp. 2. Endometrial thickness of 12 mm. 3. Possible 2.1 cm complex cystic/solid left ovarian lesion is difficult to characterize due to limited visualization due to bowel gas. 4. Heterogeneous uterus. No discrete fibroid appreciated. Gynecologic consultation and correlation with clinical exam recommended to determine further management for this patient with abnormal uterine bleeding. Recommend follow-up ultrasound in 6-8 weeks. 11/14/2023 the patient underwent hysteroscopy polypectomy/D and C, the pathology showed the following: A. Endometrium, polypectomy: Polypoid fragments of inactive endometrium; no atypia identified. B. Endometrium, curettage: - Few superficial fragments and strips of inactive endometrium; no atypia identified. - Scant endocervical and squamous epithelium within normal limits [facility] Medical History (Updated 01/06/24 @ 14:42 by Lyle Mirza MD) HTN (hypertension) GERD (gastroesophageal reflux disease) Post-operative nausea and vomiting Obesity (BMI 30-39.9) ASCUS with positive high risk HPV cervical Renal stone Anemia ASCUS with positive high risk HPV Scoliosis Nephrolithiasis Insomnia Anxiety Depression Asthma Surgical History Hx of cystoscopy Hx of lithotripsy History of excision of pilonidal cyst Hx of tubal ligation Family History Father No problems noted. Mother Diabetes Maternal Grandmother COPD (chronic obstructive pulmonary disease) Paternal Grandfather No problems noted. 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 Sexual orientation: Straight/Heterosexual Gender identity: Female Cognitive needs: No Hearing needs: No Vision needs: Yes (glasses) Female Reproductive History Menstrual Age of Menarche: 13 Review of Systems Const All systems reviewed & are unremarkable except as noted in HPI and below Reports as per HPI and Reports no additional complaints GI Reports no additional complaints Reports no additional complaints Physical Exam Vital Signs: BMI result Body Mass Index 35.0 Assessment & Plan Assessment & Plan (1) Endometrial polyp: Comment: Status post hysteroscopy D&C Code(s): N84.0 - Polyp of corpus uteri Category: Medical Plan: Endometrial polyp was seen on ultrasound not seen on MRI but the patient had hysteroscopy D&C in between the 2 imaging test. All questions answered, the patient verbalized understanding (2) Complex ovarian cyst: Comment: Resolved Code(s): N83.299 - Other ovarian cyst, unspecified side Category: Medical Plan: Discussed with the patient MRI findings showing the previously identified complex cyst has resolved. Endometrial polyp was not seen by MRI, the patient underwent hysteroscopy D&C with the above pathology shown . The patient was instructed to call if symptoms recur. All questions were answered the patient verbalized understanding. Coding Level of Care Code Est Pt Level 3 (69288) Diagnoses Endometrial polyp N84.0 Complex ovarian cyst N83.299
[2024-01-06 14:30] VITALS: BMI 35.0
== END 2024-01-06 15:01 | disposition home or self-care (01) ==
PROVIDERS: PCP Internal Medicine; Visit Provider Obstetrics & Gynecology
DX: N84.0 Polyp of corpus uteri (principal); N83.299 Other ovarian cyst, unspecified side
CPT/HCPCS: 99213

== ENCOUNTER → 2024-01-06 14:25 | Outpatient (BNVA) | payer OTHER, SELFPAY | PROVIDERS: PCP Internal Medicine; Visit Provider Obstetrics & Gynecology | DX: N84.0 Polyp of corpus uteri (principal); N83.299 Other ovarian cyst, unspecified side | CPT/HCPCS: 99212 ==

== ENCOUNTER 2024-03-22 12:50 | Outpatient (AMB) | payer OTHER, SELFPAY ==
[2024-03-22 12:52] VITALS: BP 110/78; PULSE 73; O2SAT 98; BMI 35.9
--- NOTE | 2024-03-22 12:52 | A.OFFPC_ITS ---
Vital Signs 03/22/24 12:52 Height 5 ft 1 in Weight 190 lb 0.6 oz BMI 35.9 BP 110/78 Blood Pressure Location Lt brachial Position Sitting Pulse 73 Pulse Source Pulse Oximeter Pulse Oximetry (%) 98 Oxygen Delivery Method Room Air Intake Visit Reasons: ANNUAL Sledger Required: No Accompanied by: Self / Same As Patient Allergies almond Allergy (Severe, Verified 03/22/24 12:52) ANAPHYLAXIS latex [Latex] Allergy (Severe, Verified 03/22/24 12:52) RASH/SWELLING shrimp Allergy (Severe, Verified 03/22/24 12:52) Anaphylaxis environmental allergies Allergy (Intermediate, Verified 03/22/24 12:52) Itching naproxen [NAPROXEN] Allergy (Intermediate, Verified 03/22/24 12:52) HIVES amoxicillin [AMOXICILLIN] Allergy (Mild, Verified 03/22/24 12:52) HIVES FRUIT Allergy (Severe, Uncoded 03/22/24 12:52) ANAPHYLAXIS Tobacco use date assessed: 03/22/24 Dental Screening Dental Screen Date: 08/29/23 Did you have a dental visit in the last 12 months?: Yes Did you have a dental problem in the last 6 months where you did not have access to dental care?: No Was dental information given to patient?: Patient has dentist HPI ANNUAL 2 HPI Details HTN on rx; doing well; due for colonoscopy [facility] Medical History (Updated 01/06/24 @ 14:42 by Lyle Mirza MD) HTN (hypertension) GERD (gastroesophageal reflux disease) Post-operative nausea and vomiting Obesity (BMI 30-39.9) ASCUS with positive high risk HPV cervical Renal stone Anemia ASCUS with positive high risk HPV Scoliosis Nephrolithiasis Insomnia Anxiety Depression Asthma Surgical History Hx of cystoscopy Hx of lithotripsy History of excision of pilonidal cyst Hx of tubal ligation Family History Father No problems noted. Mother Diabetes Maternal Grandmother COPD (chronic obstructive pulmonary disease) Paternal Grandfather No problems noted. Paternal Grandmother Medical history unknown Social History Housing: House Alcohol intake: never Patient Tobacco Use Status: Never used Tobacco Tobacco use type: Cigarette e-Cigarette/Vaping Use: Never Used Second Hand Smoke Exposure: No service: No Current occupational status: employed Current occupation: [employer] Sexual orientation: Straight/Heterosexual Gender identity: Female Cognitive needs: No Hearing needs: No Vision needs: Yes (glasses) Female Reproductive History Menstrual Age of Menarche: 13 Questionnaire PHQ-9 Over the last 2 weeks, how often have you been bothered by any of the following problems? 1. Little interest or pleasure in doing things: not at all 2. Feeling down, depressed, or hopeless: not at all 3. Trouble falling or staying asleep, or sleeping too much: not at all 4. Feeling tired or having little energy: not at all 5. Poor appetite or overeating: not at all 6. Feeling bad about yourself - or that you are a failure or have let yourself or your family down: not at all 7. Trouble concentrating on things, such as reading the newspaper or watching television: not at all 8. Moving or speaking so slowly that other people could have noticed. Or the opposite - being so fidgety or restless that you have been moving around a lot more than usual: not at all 9. Thoughts that you would be better off or of hurting yourself in some way: not at all Total score: 0 Depression Screening Interpretation: Negative Depression Screening Done: Yes 04395 - PHQ-9 Billing: Yes Source: Developed by Drs. Virgil Staples, Mariana Hendrickson, Blayne Scott and colleagues, with an educational melecio from [employer]. Thrive Questionnaire Date Thrive assessed: 03/15/24 I am a: Patient What is your living situation today?: I have a steady place to live Within the past 12 months, did the food you bought not last and you didn't have the money to get more?: Never true Within the past 12 months, did you worry whether your food would run out before you got money to buy more?: Never true Do you have trouble paying for medicines?: No Do you have trouble getting transportation to medical appointments?: No Do you have trouble paying your heating and electricity bill?: No Do you have trouble taking care of your child, family member or friend?: No Do you have trouble with day-to-day activities such as bathing, preparing meals, shopping, managing finances, etc.?: No Are you currently unemployed and looking for a job?: No Are you interested in more education?: No Please select the resources that you would like help with: None Currently or been in a relationship where the following occur: I choose not to answer THRIVE Score: 0 AUDIT C Alcohol Use Questionnaire (AUDIT-C) 1. How often do you have a drink containing alcohol?: Never 3. How often do you have six or more drinks on one occasion?: Never Total Score: 0 ELFEGO-7 AMB Questionnaire ELFEGO-7 Date ELFEGO - 7 assessed: 03/22/24 Feeling nervous, anxious, or on edge: 2 = More than half the days Not being able to stop or control worryin = Several days Worrying too much about different things: 1 = Several days Trouble relaxin = Several days Being so restless that it is hard to sit still: 1 = Several days Becoming easily annoyed or irritable: 1 = Several days Feeling afraid as if something awful might happen: 0 = Not at all Total ELFEGO-7 score (0-4 normal; 5-9 mild; 10-14 moderate; 15-21 severe): 7 Source: Developed by Drs. Virgil Staples, Mariana Hendrickson, Blayne Scott and colleagues, with an educational melecio from [employer]. ELFEGO-7 Assessment Billing ELFEGO-7 Assessment Tool: ELFEGO-7 Assessment 62537 Review of Systems Const Denies chills, Denies fatigue, Denies headache(s) and Denies weight loss Eyes Denies change in vision, Denies diplopia and Denies eye pain ENT Denies vertigo, Denies dizziness, Denies headache(s) and Denies nasal discharge Card Denies chest pain, Denies rapid heart rate and Denies dyspnea on exertion Resp Denies chest congestion, Denies cough, Denies pain with cough and Denies dyspnea on exertion GI Denies abdominal pain, Denies hematochezia and Denies change in bowel habits Musc Denies myalgias, Denies arthralgias and Denies joint swelling Skin/Breast Denies lesions and Denies unusual bruising Neuro Denies vertigo, Denies dizziness, Denies headache(s) and Denies focal weakness Endo Denies fatigue Physical exam (Primary Care) Vital Signs: Last Vital Signs Pulse 73 03/22/24 12:52 BP 110/78 03/22/24 12:52 Pulse Ox 98 03/22/24 12:52 Oxygen Delivery Method Room Air 03/22/24 12:52 BMI result Body Mass Index 35.9 Tobacco/Smoking Status: Tobacco use Status Tobacco use date assessed 03/22/24 03/22/24 12:57 Patient Tobacco Use Status Never used Tobacco 03/22/24 12:57 Tobacco use type Cigarette 03/22/24 12:57 e-Cigarette/Vaping Use Never Used 03/22/24 12:57 PHQ-9: PHQ-9 Score PHQ-9: Total score 0 03/22/24 12:57 Depression Screening Interpretation: Negative Thrive Assessment: Date of Thrive Assessment Date Thrive assessed 03/15/24 03/22/24 12:57 Currently or been in a relationship where the following occur: I choose not to answer Const General: cooperative, healthy appearing and no acute distress Orientation/consciousness: oriented to person, oriented to place and oriented to time HENMT Head: Yes normal to inspection, Yes normocephalic and Yes atraumatic Mouth: Normal oral and palatal mucosa present and tongue normal Throat: Yes posterior oropharynx normal and Yes uvula midline Eyes General: appearance normal, both eyes and all related structures Neck Neck: Yes normal visual inspection, Yes full ROM and Yes no lymphadenopathy Thyroid: Thyroid normal Carotids: normal carotid upstroke Chest Chest palpation & inspection: normal inspection of the chest Resp Effort & Inspection: normal respiratory effort and able to speak in complete sentences Auscultation: clear to auscultation bilaterally Cardio Jugular venous distension: no JVD Palpation: normal PMI Rate: regular rate Rhythm: regular rhythm Heart sounds: S1 normal heart sound present and S2 normal heart sound present GI Inspection: Yes normal to inspection Palpation (GI): Soft to palpation and No hepatosplenomegaly present Auscultation: normal bowel sounds General: Yes no CVA tenderness Back/Spine/Pelvis Back: no CVA tenderness Skin General skin exam: no rashes or lesions noted Neuro General: oriented to person, oriented to place and oriented to time Extrem General: Yes normal to inspection and Yes full ROM Coding Level of Care Code Est Pt Prev Care 40-64y(67309) Diagnoses Physical exam Z00.00 Hypertension I10 Additional Codes ELFEGO-7 Assessment Billing - ELFEGO-7 Assessment Tool: ELFEGO-7 Assessment 50453 ([id number]) PHQ-9 - 13668 - PHQ-9 Billing: Yes ([id number]) Assessment & Plan Assessment & Plan (1) Physical exam: Code(s): Z00.00 - Encounter for general adult medical examination without abnormal findings Category: Medical Plan: stable; do labs (2) Hypertension: Code(s): I10 - Essential (primary) hypertension Category: Medical Plan: stable; same rx Orders: Orders Comprehensive [place]. Panel Fast Today Z13.9 - Encounter for screening, unspecified Lipid Panel Today Z13.220 - Encounter for screening for lipoid disorders Thyroid Stimulating Hormone Today Z13.29 - Encounter for screening for other suspected endocrine disorder Complete Blood Count Auto Diff Today Z13.0 - Encounter for screening for diseases of the blood and blood-forming organs and certain disorders involving the immune mechanism Referrals Gastroenterology Referral Z12.11 - Encounter for screening for malignant neoplasm of colon
== END 2024-03-22 16:22 | disposition home or self-care (01) ==
PROVIDERS: PCP Internal Medicine; Visit Provider Internal Medicine
DX: Z00.00 Encounter for general adult medical examination without abnormal findings (principal); I10 Essential (primary) hypertension

== ENCOUNTER → 2024-03-22 12:50 | Outpatient (BNVA) | payer OTHER, SELFPAY | PROVIDERS: PCP Internal Medicine; Visit Provider Internal Medicine | DX: Z00.00 Encounter for general adult medical examination without abnormal findings (principal); I10 Essential (primary) hypertension | CPT/HCPCS: 96127; 99396 ==

== ENCOUNTER 2024-08-23 13:40 | Outpatient (REF) | payer OTHER, SELFPAY | END 2024-08-23 13:41 | disposition home or self-care (01) | LOC: HO.MAMMO 13:40 | PROVIDERS: PCP Internal Medicine; Visit Provider Internal Medicine | DX: Z12.31 Encounter for screening mammogram for malignant neoplasm of breast (principal) | CPT/HCPCS: 77063; 77067 ==

== ENCOUNTER → 2024-08-23 13:45 | Outpatient (BNV) | payer OTHER, SELFPAY | PROVIDERS: PCP Internal Medicine; Visit Provider Internal Medicine | DX: Z12.31 Encounter for screening mammogram for malignant neoplasm of breast (principal) | CPT/HCPCS: 77063; 77067 ==

== ENCOUNTER 2024-11-05 09:56 | Outpatient (AMB) | payer OTHER, SELFPAY ==
--- NOTE | 2024-11-05 10:05 | A.OFFPC_ITS ---
Vital Signs 11/05/24 10:06 Height 5 ft 1 in Weight 195 lb BMI 36.8 BP 110/64 Blood Pressure Location Lt brachial Position Sitting Oxygen Delivery Method Room Air Intake Visit Reasons: JUAN Dr Pugh Banquet Attendant Required: No Accompanied by: Self / Same As Patient Allergies almond Allergy (Severe, Verified 11/05/24 10:36) ANAPHYLAXIS latex (Latex) Allergy (Severe, Verified 11/05/24 10:36) RASH/SWELLING shrimp Allergy (Severe, Verified 11/05/24 10:36) Anaphylaxis environmental allergies Allergy (Intermediate, Verified 11/05/24 10:36) Itching naproxen (NAPROXEN) Allergy (Intermediate, Verified 11/05/24 10:36) HIVES amoxicillin (AMOXICILLIN) Allergy (Mild, Verified 11/05/24 10:36) HIVES FRUIT Allergy (Severe, Uncoded 11/05/24 10:36) ANAPHYLAXIS Medication List - Last Reconciled 11/05/24 by Nancy Cisse PA-C albuterol sulfate 90 mcg/actuation (ProAir HFA) 2 puffs inhalation Q4-6H PRN 30 days cyclobenzaprine 5 mg PO Q8H PRN epinephrine (EpiPen 2-Dylan) 0.3 mg (0.3 mL) IM Q10M PRN ferrous sulfate 325 mg PO BID fluticasone propionate 50 mcg/actuation (Flonase Allergy Relief) 1 spray intranasal DAILY 10 days lisinopril 10 mg PO DAILY loratadine 10 mg PO DAILY PRN lorazepam 1 mg PO BEDTIME omeprazole 20 mg PO DAILY pyridoxine (vitamin B6) 100 mg PO DAILY 90 days tramadol 50 mg PO Q8H triamcinolone acetonide 0.5% 1 appl topical DAILY PRN Tobacco use date assessed: 11/05/24 Dental Screening Dental Screen Date: 08/29/23 Did you have a dental visit in the last 12 months?: No Did you have a dental problem in the last 6 months where you did not have access to dental care?: No Was dental information given to patient?: Patient has dentist HPI JUAN Dr Pugh HPI Details 49-year-old female with past medical his tory of anemia, asthma, kidney stones, obesity last seen 03/[address] Pugh coming in for transfer of care. Presenting for management of asthma, GERD, anxiety, insomnia, and scoliosis. The patient reports a history of asthma since childhood, which she feels she outgr ew, but experiences symptoms primarily in the winter. She reports nighttime coughing and occasional wheezing, suggesting uncontrolled asthma. She uses albuterol as needed but has not used it recently. The patient experiences nighttime coughing, which may be related to GERD. She takes omeprazole but reports intermittent exacerbations of symptoms. The patient experiences significant anxiety, using lorazepam as needed, approximately three to four times a week. She is concerned about potential addiction and is hesitant to use daily medication due to past side effects. The patient reports difficulty sleeping, waking up frequently at night, and feeling tired during the day. She has tried trazodone in the past but experienced adverse effects. The patient has scoliosis, contributing to neck and lower back pain. She uses cyclobenzaprine for muscle relaxation and finds relief with caretaker grounds. [facility] Medical History HTN (hypertension) GERD (gastroesophageal reflux disease) Post-operative nausea and vomiting Obesity (BMI 30-39.9) ASCUS with positive high risk HPV cervical Renal stone Anemia ASCUS with positive high risk HPV Scoliosis Nephrolithiasis Insomnia Anxiety Depression Asthma Surgical History Hx of cystoscopy Hx of lithotripsy History of excision of pilonidal cyst Hx of tubal ligation Family History Father No problems noted. Mother Diabetes Maternal Grandmother COPD (chronic obstructive pulmonary disease) Paternal Grandfather No problems noted. 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 1. Little interest or pleasure in doing things: not at all 2. Feeling down, depressed, or hopeless: not at all 3. Trouble falling or staying asleep, or sleeping too much: not at all 4. Feeling tired or having little energy: not at all 5. Poor appetite or overeating: not at all 6. Feeling bad about yourself - or that you are a failure or have let yourself or your family down: not at all 7. Trouble concentrating on things, such as reading the newspaper or watching television: not at all 8. Moving or speaking so slowly that other people could have noticed. Or the opposite - being so fidgety or restless that you have been moving around a lot more than usual: not at all 9. Thoughts that you would be better off or of hurting yourself in some way: not at all Total score: 0 Depression Screening Interpretation: Negative Depression Screening Done: Yes 34307 - PHQ-9 Billing: Yes Source: Developed by Drs. Virgil Staples, Mariana Hendrickson, Blayne Scott and colleagues, with an educational melecio from [employer]. Thrive Questionnaire Date Thrive assessed: 11/05/24 I am a: Patient What is your living situation today?: I have a steady place to live Within the past 12 months, did the food you bought not last and you didn't have the money to get more?: Often true Within the past 12 months, did you worry whether your food would run out before you got money to buy more?: Sometimes True Do you have trouble paying for medicines?: No Do you have trouble getting transportation to medical appointments?: No Do you have trouble paying your heating and electricity bill?: No Do you have trouble taking care of your child, family member or friend?: No Do you have trouble with day-to-day activities such as bathing, preparing meals, shopping, managing finances, etc.?: No Are you currently unemployed and looking for a job?: Yes Are you interested in more education?: I choose not to answer this question Please select the resources that you would like help with: None Currently or been in a relationship where the following occur: No concerns reported THRIVE Score: 2 AUDIT C Alcohol Use Questionnaire (AUDIT-C) 1. How often do you have a drink containing alcohol?: Never 3. How often do you have six or more drinks on one occasion?: Never Total Score: 0 ELFEGO-7 AMB Questionnaire ELFEGO-7 Date ELFEGO - 7 assessed: 11/05/24 Feeling nervous, anxious, or on edge: 1 = Several days Not being able to stop or control worryin = More than half the days Worrying too much about different things: 3 = Nearly every day Trouble relaxin = More than half the days Being so restless that it is hard to sit still: 1 = Several days Becoming easily annoyed or irritable: 2 = More than half the days Feeling afraid as if something awful might happen: 1 = Several days Total ELFEGO-7 score (0-4 normal; 5-9 mild; 10-14 moderate; 15-21 severe): 12 Source: Developed by Drs. Virgil Staples, Mariana Hendrickson, Blayne Scott and colleagues, with an educational melecio from [employer]. ELFEGO-7 Assessment Billing ELFEGO-7 Assessment Tool: ELFEGO-7 Assessment 36168 Review of Systems Const Denies body aches, Denies chills, Denies fever(s), Denies headache(s) and Denies poor appetite Eyes Reports no additional complaints ENT Denies dizziness and Denies headache(s) Card Denies chest pain, Denies syncope, Denies edema, Denies irregular heart rhythm, Denies lightheadedness and Denies dyspnea Resp Reports cough (Nocturnal) and Denies dyspnea GI Denies abdominal pain, Denies constipation, Denies diarrhea, Denies nausea and Denies vomiting Reports no additional complaints Musc Reports no additional complaints and Denies abnormal gait Skin/Breast Reports system reviewed and no additional complaints, except as documented Neuro Denies abnormal gait, Denies dizziness, Denies syncope and Denies headache(s) Psych Reports no additional complaints Physical exam (Primary Care) Vital Signs: Last Vital Signs BP 110/64 11/05/24 10:06 Oxygen Delivery Method Room Air 11/05/24 10:06 BMI result Body Mass Index 36.8 Tobacco/Smoking Status: Tobacco use Status Tobacco use date assessed 11/05/24 11/05/24 10:11 Patient Tobacco Use Status Never used Tobacco 11/05/24 10:11 Tobacco use type Cigarette 11/05/24 10:11 e-Cigarette/Vaping Use Never Used 11/05/24 10:11 PHQ-9: PHQ-9 Score PHQ-9: Total score 0 11/05/24 10:42 Depression Screening Interpretation: Negative Thrive Assessment: Date of Thrive Assessment Date Thrive assessed 11/05/24 11/05/24 10:11 Currently or been in a relationship where the following occur: No concerns reported Const General: cooperative, healthy appearing, comfortable and no acute distress Orientation/consciousness: patient oriented x3 HENMT Head: Yes normocephalic Ears: hearing grossly normal bilaterally General nose exam: Normal external nose present Eyes General: appearance normal, both eyes and all related structures Conjunctivae: conjunctivae normal Neck Neck: Yes full ROM and Yes no lymphadenopathy Resp Effort & Inspection: normal respiratory effort Auscultation: clear to auscultation bilaterally, no crackles, no rales, no rhonchi and no wheezes Cardio Rate: regular rate Rhythm: regular rhythm Skin General skin exam: no rashes or lesions noted Neuro General: patient oriented x3 Gait exam (Neuro): Normal gait present Extrem General: Yes normal to inspection, Yes full ROM and No edema Psych Affect: normal affect Attitude: cooperative Insight: Good insight present (Psych) Judgement: Good judgement present (Psych) Coding Level of Care Code Est Pt Level 4 (96187) Diagnoses Primary hypertension I10 Hypertension type: primary hypertension Obesity E66.9 Obesity classification: adult class 1 (BMI 30 - 34.9) Obesity type: due to excess calories Serious obesity comorbidity presence: without serious comorbidity Nephrolithiasis N20.0 SYLVESTER I (cervical intraepithelial neoplasia I) N87.0 Anemia D64.9 Asthma J45.909 Cervicalgia M54.2 Low back pain M54.50 Anxiety F41.9 Hypersomnolence G47.10 Additional Codes ELFEGO-7 Assessment Billing - ELFEGO-7 Assessment Tool: ELFEGO-7 Assessment 33437 ([id number]) PHQ-9 - 54992 - PHQ-9 Billing: Yes ([id number]) Assessment & Plan Assessment & Plan (1) Hypertension: Code(s): I10 - Essential (primary) hypertension Category: Medical Qualifiers: Hypertension type: primary hypertension Qualified Code(s): I10 - Essential (primary) hypertension Plan: Continue on current blood pressure medication. Avoid salt intake and encourage healthy diet and regular exercise. (2) Obesity: Code(s): E66.9 - Obesity, unspecified Category: Medical Qualifiers: Obesity classification: adult class 1 (BMI 30 - 34.9) Obesity type: due to excess calories Serious obesity comorbidity presence: without serious comorbidity Plan: Healthy diet and regular exercise is encouraged. Consider medical management going forward she is interested but not at this time. Referral was placed to nutrition (3) Nephrolithiasis: Code(s): N20.0 - Calculus of kidney Category: Medical Plan: Has not had recurrance in the stones in several years. Following with urology. (4) SYLVESTER I (cervical intraepithelial neoplasia I): Code(s): N87.0 - Mild cervical dysplasia Category: Medical Plan: Continue to follow with gynecology. (5) Anemia: Comment: cont iron for now Code(s): D64.9 - Anemia, unspecified Category: Medical Plan: Continue to monitor CBC and continue with iron supplement. (6) Asthma: Code(s): J45.909 - Unspecified asthma, uncomplicated Category: Medical Plan: Patient has not been on rescue inhaler or maintenance inhaler in quite some time. She is endorsing frequent nighttime coughing which may be related to her asthma. Plan to add inhaled corticosteroid twice daily for symptom management and restart on albuterol as needed. Avoid triggers such as allergies. Follow up in 2 months (7) Cervicalgia: Code(s): M54.2 - Cervicalgia Category: Medical Plan: Patient having chronic neck and low back pain associated with her scoliosis. She is currently on cyclobenzaprine and finds good benefit from this and follows with chiropractor as well (8) Low back pain: Code(s): M54.50 - Low back pain, unspecified Category: Medical Plan: See above (9) Anxiety: Code(s): F41.9 - Anxiety disorder, unspecified Category: Medical Plan: Patient reporting anxiety and difficulty sleeping she has tried trazodone in the past without good benefit and does not like SSRIs due to lack of libido. Plan to start on hydroxyzine nightly for anxiety and sleep. (10) Hypersomnolence: Code(s): G47.10 - Hypersomnia, unspecified Category: Medical Plan: May be related to a combination of her insomnia and asthma however given nighttime cough and excessive daytime sleepiness plan to order for sleep study for further evaluation. Plan The patient will be prescribed a steroid inhaler to be used twice daily to manage asthma symptoms, with instructions to rinse the mouth after use to prevent oral thrush. A follow-up appointment will be scheduled to assess the effectiveness of the inhaler and monitor asthma control. Additionally, a sleep study will be conducted to evaluate for potential sleep apnea, given the patient's reported insomnia and nighttime symptoms. For GERD management, the patient will continue with omeprazole, and dietary modifications will be discussed with a zone supervisor firearms to help manage symptoms. Anxiety management will include a discussion on the potential use of daily medication, with consideration of the patient's concerns about side effects and addiction. Hydroxyzine will be prescribed for insomnia and anxiety, with instructions on potential side effects and dosage adjustments if necessary. The patient will be encouraged to continue using triamcinolone cream for eczema management and to follow up with gynecology for the positive Pap smear. Blood work will be ordered to assess kidney, liver, and cholesterol levels, with instructions for fasting prior to the test. The patient will also be referred to a zone supervisor firearms to address dietary restrictions and weight management concerns. This note was constructed using voice recognition software. While every effort has been made to ensure accuracy and enamel machine operator, still areas may have been included sometimes these areas may affect the content or meeting of the given symptoms. Total time spent caring for the patient today was 30 minutes. This includes time spent before the visit reviewing the chart, time spent during the visit, and time spent after the visit and documentation. Patient was informed and verbally consented to the use of an ambient scribe for clinic note documentation during this visit. Orders: Orders Complete Blood Count Auto Diff Today D64.9 - Anemia, unspecified, Z00.00 - Encounter for general adult medical examination without abnormal findings TSH reflex Free T4 Today E66.9 - Obesity, unspecified, Z00.00 - Encounter for general adult medical examination without abnormal findings Free T4 (Free Thyroxine) Today E66.9 - Obesity, unspecified, Z00.00 - Encounter for general adult medical examination without abnormal findings Comprehensive Met. Panel Today I10 - Essential (primary) hypertension, Z00.00 - Encounter for general adult medical examination without abnormal findings Vitamin B12 and Folate Today I10 - Essential (primary) hypertension, Z13.21 - Encounter for screening for nutritional disorder Vitamin D 25-OH Total Today I10 - Essential (primary) hypertension, Z00.00 - Encounter for general adult medical examination without abnormal findings RT home sleep study Today E66.9 - Obesity, unspecified, G47.10 - Hypersomnia, unspecified Lipid Panel Today E66.9 - Obesity, unspecified, E78.00 - Pure hypercholest erolemia, unspecified Referrals Sales Route Driver Helper Nutrition Referral E66.9 - Obesity, unspecified Medications: New beclomethasone dipropionate 40 mcg/actuation (Qvar RediHaler) 1 inh inhalation BID 10.6 grams 0RF hydroxyzine HCl 25 mg PO BEDTIME 90 tabs 0RF F41.9 - Anxiety disorder, unspecified Refilled triamcinolone acetonide 0.5% 1 appl topical DAILY PRN 15 grams 5RF rash albuterol sulfate 90 mcg/actuation (ProAir HFA) 2 puffs inhalation Q4-6H PRN 8.5 grams 0RF shortness of breath or wheezing 30 days J45.909 - Unspecified asthma, uncomplicated omeprazole 20 mg PO DAILY 90 caps 1RF Discontinued tramadol Discontinued Reason: Patient Refused 50 mg PO Q8H 20 tabs 0RF pain pyridoxine (vitamin B6) Discontinued Reason: Patient no longer taking 100 mg PO DAILY 90 days 90 tabs 3RF N20.0 - Calculus of kidney
[2024-11-05 10:06] VITALS: BP 110/64; BMI 36.8
--- OUTSIDE RECORDS SUMMARY | 2024-11-05 10:13 | XMS_ITS | Clinical Summary ---
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 Name Role Phone Unavailable Primary Care Provider Unavailabl e Social History Tobacco Use Types Packs/Day Years Used Date Smoking Tobacco: Never Assessed Comments Unknown Sex and Gender Information Value Date Recorded Sex Assigned at Not on file Legal Sex Female 12:15 AM EST Gender Identity Not on file Sexual Orientation Not on file Plan of Treatment Health Maintenance Due Date Last Done Comments Breast Cancer Screening 1974 DTaP,Tdap,and Td Vaccines (1 - Tdap) 1993 Hepatitis B Vaccines (1 of 3 - 19+ 3-dose series) 1993 Cervical Cancer Screening: P ap Smear 10/28/1995 Colorectal Cancer Screening: Colonoscopy 03/24/2022 Depression Screening 03/24/2022 HIV Screening 03/24/2022 Hepatitis C Screening 03/24/2022 Social Influencers of Health Screening 03/24/2022 COVID-19 Vaccine ( - 2023-2 5 season) 2023 Influenza Vaccine (#1) 2024 HIB Vaccines Aged Out No longer eligi ble based on patient's age to complete this topic HPV Vaccines Aged Out No longer eligi ble based on patient's age to complete this topic Hepatitis A Vaccines Aged Out No long er eligible based on patient's age to complete this topic IPV Vaccines Aged Out No longer eligi ble based on patient's age to complete this topic MMR Vaccines Aged Out No longer eligi ble based on patient's age to complete this topic Meningococcal ACWY Vaccine Aged Out N o longer eligible based on patient's age to complete this topic Meningococcal B Vaccine Aged Out No l onger eligible based on patient's age to complete this topic Pneumococcal Vaccine: Pediat rics (0 to 5 Years) and At-Risk Patients (6 to 49 Years) Aged Out No longer eligible b ased on patient's age to complete this topic RSV Immunization Patients Un kathy 20 months Aged Out No longer eligible b ased on patient's age to complete this topic Varicella Vaccines Aged Out No longer eligible based on patient's age to complete this topic
== END 2024-11-05 10:56 | disposition home or self-care (01) ==
LOC: HO.HMCH 09:57
DX: I10 Essential (primary) hypertension (principal); E66.9 Obesity, unspecified; Z68.36 Body mass index [BMI] 36.0-36.9, adult; N20.0 Calculus of kidney; N87.0 Mild cervical dysplasia; D64.9 Anemia, unspecified; J45.909 Unspecified asthma, uncomplicated; M54.2 Cervicalgia; M54.50 Low back pain, unspecified; F41.9 Anxiety disorder, unspecified; G47.10 Hypersomnia, unspecified

== ENCOUNTER → 2024-11-05 09:56 | Outpatient (BNVA) | payer OTHER, SELFPAY | PROVIDERS: PCP Internal Medicine | DX: I10 Essential (primary) hypertension (principal); E66.9 Obesity, unspecified; Z68.36 Body mass index [BMI] 36.0-36.9, adult; N87.0 Mild cervical dysplasia; D64.9 Anemia, unspecified; J45.909 Unspecified asthma, uncomplicated; M54.2 Cervicalgia; M54.50 Low back pain, unspecified; F41.9 Anxiety disorder, unspecified; G47.10 Hypersomnia, unspecified; Z87.442 Personal history of urinary calculi; Z13.31 Encounter for screening for depression; Z13.39 Encounter for screening examination for other mental health and behavioral disorders | CPT/HCPCS: 96127; 99212 ==

== ENCOUNTER 2024-12-09 08:24 | Outpatient (AMB) | payer OTHER, SELFPAY ==
--- NOTE | 2024-12-09 08:24 | MHC.OFFVIS ---
Intake Visit Reasons: calculus of kidney(seen 2022) Intake Note: Patient is present for New patient for nephrolithiasis last seen11/2021 Urology meds: VITB-6 Blood Thinner : none Facility Maintenance Worker Required: No Accompanied by: Self / Same As Patient Allergies almond Allergy (Severe, Verified 12/09/24 08:26) ANAPHYLAXIS latex (Latex) Allergy (Severe, Verified 12/09/24 08:26) RASH/SWELLING shrimp Allergy (Severe, Verified 12/09/24 08:26) Anaphylaxis environmental allergies Allergy (Intermediate, Verified 12/09/24 08:26) Itching naproxen (NAPROXEN) Allergy (Intermediate, Verified 12/09/24 08:26) HIVES amoxicillin (AMOXICILLIN) Allergy (Mild, Verified 12/09/24 08:26) HIVES FRUIT Allergy (Severe, Uncoded 11/05/24 10:36) ANAPHYLAXIS HPI Comments Details: Nito is a pleasant female. She is a patient of Dr. Pugh. She seen for the following urologic conditions - nephrolithiasis Last seen 2021 with left ESWL Has not been to office since then Last imaging renal ultrasound early 2022 with bilateral 1 cm stones Recommend repeat CT given significant change in stone burden UA today 2+ glucose suggestive of glucose spill Baseline stone labs Nephrolithiasis Stable Minimal symptoms Prior intervention - 02/07 Left ESWL - 12/10 Left USR Imaging - 05/11 renal ultrasound left lower pole 3 mm, right 2 cm cyst - 02/08 renal ultrasound bilateral renal cyst 1.2 cm, bilateral 4-5 mm stones - 09/09 renal ultrasound. Renal cyst stable. Punctate stones bilateral. It to be generally unchanged in size Stone composition - 11/09 calcium oxalate dihydrate 95% Therapeutic plan - maintain fluids - vitamin B6 and surveillance [facility] Medical History HTN (hypertension) GERD (gastroesophageal reflux disease) Post-operative nausea and vomiting Obesity (BMI 30-39.9) ASCUS with positive high risk HPV cervical Renal stone Anemia ASCUS with positive high risk HPV Scoliosis Nephrolithiasis Insomnia Anxiety Depression Asthma Surgical History Hx of cystoscopy Hx of lithotripsy History of excision of pilonidal cyst Hx of tubal ligation Family History Father No problems noted. Mother Diabetes Maternal Grandmother COPD (chronic obstructive pulmonary disease) Paternal Grandfather No problems noted. 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 Sexual orientation: Straight/Heterosexual Gender identity: Female Cognitive needs: No Hearing needs: No Vision needs: Yes (glasses) Female Reproductive History Menstrual Age of Menarche: 13 Review of Systems Const Denies chills and Denies fever(s) Card Reports no additional complaints and Denies syncope Resp Denies cough GI Denies abdominal pain and Denies heartburn Reports as per HPI and Denies change in libido Neuro Denies syncope Psych Denies change in libido Endo Denies change in libido Physical Exam Const General: cooperative, healthy appearing, comfortable and no acute distress Orientation/consciousness: patient oriented x3 HEENT Face and sinus: Yes normal facial exam Mouth: moist mucous membranes Neck Neck: Yes normal visual inspection, Yes full ROM and Yes trachea midline Chest Chest palpation & inspection: normal inspection of the chest Resp Effort & Inspection: normal respiratory effort, able to speak in complete sentences and no respiratory distress GI Inspection: Yes normal to inspection Back/Spine/Pelvis Cervical Spine: normal cervical lordosis Thoracic/Lumbar Spine: thoracic and lumbar spine normal to inspection Skin General skin exam: no rashes or lesions noted Neuro General: patient oriented x3, gait normal, tone normal and moves all extremities Extrem General: Yes normal to inspection and Yes capillary refill normal Assessment & Plan Assessment & Plan (1) Nephrolithiasis: Code(s): N20.0 - Calculus of kidney Category: Medical (2) Glucosuria: Code(s): R81 - Glycosuria Category: Medical Plan Lab work Imaging Office follow-up Orders: Orders CT kidney stone Today N20.0 - Calculus of kidney Basic Metabolic Panel Today N20.0 - Calculus of kidney Vitamin D 25-OH Total Today N20.0 - Calculus of kidney Magnesium Today N20.0 - Calculus of kidney Parathyroid Hormone Intact Today N20.0 - Calculus of kidney Phosphorus Today N20.0 - Calculus of kidney Uric Acid Today N20.0 - Calculus of kidney Hemoglobin A1c Today E11.9 - Type 2 diabetes mellitus without complications, N20.0 - Calculus of kidney Patient Instructions: This note is constructed using voice recognition software. While every effort has been made to ensure accuracy implementation manager errors may have been included. Imaging studies, laboratory and physical exam results were discussed and reviewed in detail. No major barriers to patient understanding were identified. An opportunity to ask questions regarding the treatment plan was provided. All questions were answered. The patient expressed understanding and agreement with the above treatment plan. The patient is aware they should contact our office by phone for worsening of their current condition or the appearance of new urologic symptoms. Compliance is encouraged with any medications and followup testing that is ordered. It is a privilege to participate in the urologic care of your patient. If you have any questions or concerns regarding treatment for the above conditions, or other urologic issues, please do not hesitate to contact me. The office telephone contact is [phone]. Sincerely, Dr Bryan Ovalle MD, [facility] - Urology Compassionate Specialist Care for the Genitourinary System Coding Level of Care Code New Pt Level 4 (82181) Diagnoses Nephrolithiasis N20.0 Glucosuria R81
--- OUTSIDE RECORDS SUMMARY | 2024-12-09 09:14 | XMS_ITS | Clinical Summary ---
Author Organization [facility] ity Address [address] [place] [address] Care Team Providers Care [employer] Service Spray Supervisor Name Role Phone Unavailable Primary Care Provider [...] Smear 10/28/1995 Colorectal Cancer Screening: Colonoscopy 03/24/2022 HIV Screening 03/24/2022 Hepatitis C Screening 03/24/2022 Social Influencers of Health Screening 03/24/2022 COVID-19 Vaccine (1 - 2023-2 5 season) 2023 Depression Screening 04/21/2024 Pneumococcal Vaccine: 50+ Ye ars (1 of 1 - PCV) 2024 Zoster Vaccines (1 of 2) 2024 Influenza Vaccine (#1) 2024 HIB Vaccines Aged [...]
== END 2024-12-09 08:50 | disposition home or self-care (01) ==
LOC: HO.HUSH 08:25
PROVIDERS: Visit Provider Urology
DX: N20.0 Calculus of kidney (principal); R81 Glycosuria; Z13.9 Encounter for screening, unspecified
CPT/HCPCS: 99204

== ENCOUNTER → 2024-12-09 08:24 | Outpatient (BNVA) | payer SELFPAY | PROVIDERS: Visit Provider Urology | DX: N20.0 Calculus of kidney (principal); R81 Glycosuria | CPT/HCPCS: 81003; 99202 ==

== ENCOUNTER 2024-12-09 08:56 | Outpatient (REF) | payer OTHER, SELFPAY ==
[2024-12-09 11:49] LABS: Hemoglobin A1C 171.5451 umol/L; Total Hemoglobin (HGBA1C) 3759.1911 umol/L
[2024-12-09 11:50] LABS: Anion Gap 11 (12-20); Blood Urea Nitrogen 14 mg/dL (9-16); Calcium 8.8 mg/dL (8.4-10.2); Carbon Dioxide 27 mmol/L (22-29); Chloride 107 mmol/L (96-108); Estimated Glomerular Filt Rate > 60; Magnesium 2.0 mg/dL (1.6-2.6); Potassium 3.5 mmol/L (3.3-5.1); Sodium 141 mmol/L (135-145); Uric Acid 5.7 mg/dL (2.4-5.7)
[2024-12-09 12:07] LABS: Parathyroid Hormone Intact 108.5 pg/mL (8.7-77.1)
== END 2024-12-09 08:57 | disposition home or self-care (01) ==
LOC: HO.10HDL 08:56
PROVIDERS: Visit Provider Urology
DX: E11.9 Type 2 diabetes mellitus without complications (principal); N20.0 Calculus of kidney
CPT/HCPCS: 36415; 80048; 82306; 83036; 83735; 83970; 84100; 84550

== ENCOUNTER → 2025-01-12 13:41 | Outpatient (REF) | payer OTHER, SELFPAY | LOC: HO.SL 13:41 | DX: G47.10 Hypersomnia, unspecified (principal); E66.9 Obesity, unspecified | CPT/HCPCS: 95806 ==

== ENCOUNTER → 2025-01-12 13:55 | Outpatient (BNV) | payer OTHER, SELFPAY | PROVIDERS: Visit Provider Internal Medicine | DX: R06.83 Snoring (principal) | CPT/HCPCS: 95806 ==

== ENCOUNTER 2025-01-14 08:48 | Outpatient (REF) | payer OTHER, SELFPAY ==
[2025-01-14 09:09] LABS: MANUAL DIFF FLAG NO
[2025-01-14 09:58] LABS: Hematocrit 42.2 % (37.0-47.0); Hemoglobin 14.3 g/dl (12.0-16.0); Imm Gran Abs Auto 0.02 X10*3/uL (0.00-0.03); Imm Gran Pct Auto 0.3 % (0.0-0.4); Lymphocytes Absolute Auto 2.0 X10*3/uL (1.2-4.9); Mean Corpuscular HGB Conc 33.9 g/dl (31.0-35.0); Mean Corpuscular Hemoglobin 29.7 pg (27.0-33.0); Mean Corpuscular Volume 87.6 fL (80.0-98.0); NRBC Abs Auto 0.000 X10*3/uL (0.0-0.012); NRBC Pct Auto 0.0 /100WBC (0.0-0.2); Platelet Count 369 X10*3/uL (160-400); Red Blood Count 4.82 X10*6/uL (4.20-5.50); White Blood Count 6.2 X10*3/uL (4.8-10.8)
[2025-01-14 10:33] LABS: Alanine Aminotransferase 29 U/L (0-31); Albumin Level 4.0 g/dL (3.5-5.0); Alkaline Phosphatase 124 U/L (39-117); Anion Gap 10 (12-20); Aspartate Amino Transferase 22 U/L (5-31); Blood Urea Nitrogen 14 mg/dL (9-16); Calcium 8.9 mg/dL (8.4-10.2); Carbon Dioxide 27 mmol/L (22-29); Chloride 110 mmol/L (96-108); Cholesterol 164 mg/dL (<200); Estimated Glomerular Filt Rate > 60; HDL Cholesterol 27 mg/dL (>40); Potassium 3.6 mmol/L (3.3-5.1); Sodium 143 mmol/L (135-145); Total Protein 6.7 g/dL (6.5-8.0); Triglycerides 151 mg/dL (<150)
[2025-01-14 10:53] LABS: Free T4 (Free Thyroxine) 1.01 ng/dL (0.71-1.85)
[2025-01-14 12:48] LABS: Folate 15.1 ng/mL (> or = 4.0); Vitamin B12 631 pg/mL (200-900)
== END 2025-01-14 08:49 | disposition home or self-care (01) ==
LOC: HO.LAB 08:48
DX: Z00.00 Encounter for general adult medical examination without abnormal findings (principal); Z13.21 Encounter for screening for nutritional disorder; I10 Essential (primary) hypertension; E66.9 Obesity, unspecified; E78.00 Pure hypercholesterolemia, unspecified; D64.9 Anemia, unspecified
CPT/HCPCS: 36415; 80053; 80061; 82306; 82607; 82746; 84439; 84443; 85025

== ENCOUNTER 2025-01-21 10:34 | Outpatient (AMB) | payer OTHER, SELFPAY ==
[2025-01-21 10:37] VITALS: BP 110/78; PULSE 67; O2SAT 98; BMI 36.1
--- NOTE | 2025-01-21 10:37 | A.OFFPC_ITS ---
Vital Signs 01/21/25 10:37 Height 5 ft 1 in Weight 191 lb 4 oz BMI 36.1 BP 110/78 Blood Pressure Location Lt brachial Position Sitting Pulse 67 Pulse Source Pulse Oximeter Pulse Oximetry (%) 98 Oxygen Delivery Method Room Air Intake Visit Reasons: f/u asthma Compliance Tester Required: No Accompanied by: Self / Same As Patient Allergies almond Allergy (Severe, Verified 01/21/25 10:38) ANAPHYLAXIS latex (Latex) Allergy (Severe, Verified 01/21/25 10:38) RASH/SWELLING shrimp Allergy (Severe, Verified 01/21/25 10:38) Anaphylaxis environmental allergies Allergy (Intermediate, Verified 01/21/25 10:38) Itching naproxen (NAPROXEN) Allergy (Intermediate, Verified 01/21/25 10:38) HIVES amoxicillin (AMOXICILLIN) Allergy (Mild, Verified 01/21/25 10:38) HIVES FRUIT Allergy (Severe, Uncoded 01/21/25 10:38) ANAPHYLAXIS Medication List - Last Reconciled 01/21/25 by Nancy Cisse PA-C albuterol sulfate 90 mcg/actuation (ProAir HFA) 2 puffs inhalation Q4-6H PRN 30 days beclomethasone dipropionate 40 mcg/actuation (Qvar RediHaler) 1 inh inhalation BID cyclobenzaprine 5 mg PO Q8H PRN epinephrine (EpiPen 2-Dylan) 0.3 mg (0.3 mL) IM Q10M PRN ferrous sulfate 325 mg PO BID hydroxyzine HCl 25 mg PO BEDTIME lisinopril 10 mg PO DAILY loratadine 10 mg PO DAILY PRN lorazepam 1 mg PO BEDTIME omeprazole 20 mg PO DAILY triamcinolone acetonide 0.5% 1 appl topical DAILY PRN Tobacco use date assessed: 01/21/25 Dental Screening Dental Screen Date: 01/21/25 Did you have a dental visit in the last 12 months?: Yes Did you have a dental problem in the last 6 months where you did not have access to dental care?: No Was dental information given to patient?: Patient has dentist HPI f/u asthma HPI Details 49-year-old female with past medical his tory of anemia, asthma, kidney stones, obesity last seen 10/2024 coming in for follow up. She did have sleep study performed 01/2025 and recommended workup with PFT. Presenting with asthma management, palpitations, and foot rash. The patient has been experiencing asthma symptoms and is currently using Ventolin twice daily, which indicates poor control. She was prescribed Qvar, but did not receive it in itially. The Ventolin is intended for use only as needed, ideally once a week. The patient reports no nocturnal dyspnea since starting the current regimen. Recent lab results show triglycerides at 151 mg/dL and LDL cholesterol at 107 mg/dL, both slightly above the desired levels. Dietary modifications were discussed to manage cholesterol levels. The patient reports experiencing palpitations twice in the past week, possibly related to stress or dehydration. Episodes are brief, lasting seconds. A log of episodes was recommended to identify potential triggers. The patient presents with a rash on the feet, characterized by itching and occasional opening of the skin. A fungal infection is suspected, and a topical antifungal cream was prescribed. [facility] Medical History HTN (hypertension) GERD (gastroesophageal reflux disease) Post-operative nausea and vomiting Obesity (BMI 30-39.9) ASCUS with positive high risk HPV cervical Renal stone Anemia ASCUS with positive high risk HPV Scoliosis Nephrolithiasis Insomnia Anxiety Depression Asthma Surgical History Hx of cystoscopy Hx of lithotripsy History of excision of pilonidal cyst Hx of tubal ligation Family History Father No problems noted. Mother Diabetes Maternal Grandmother COPD (chronic obstructive pulmonary disease) Paternal Grandfather No problems noted. 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 1. Little interest or pleasure in doing things: several days 2. Feeling down, depressed, or hopeless: not at all 3. Trouble falling or staying asleep, or sleeping too much: several days 4. Feeling tired or having little energy: several days 5. Poor appetite or overeating: not at all 6. Feeling bad about yourself - or that you are a failure or have let yourself or your family down: not at all 7. Trouble concentrating on things, such as reading the newspaper or watching television: not at all 8. Moving or speaking so slowly that other people could have noticed. Or the opposite - being so fidgety or restless that you have been moving around a lot more than usual: not at all 9. Thoughts that you would be better off or of hurting yourself in some way: not at all Total score: 3 Source: Developed by Drs. Virgil Staples, Mariana Hendrickson, Blayne Scott and colleagues, with an educational melecio from [employer]. Thrive Questionnaire Date Thrive assessed: 10/29/24 I am a: Patient What is your living situation today?: I have a steady place to live Within the past 12 months, did the food you bought not last and you didn't have the money to get more?: Often true Within the past 12 months, did you worry whether your food would run out before you got money to buy more?: Sometimes True Do you have trouble paying for medicines?: No Do you have trouble getting transportation to medical appointments?: No Do you have trouble paying your heating and electricity bill?: No Do you have trouble taking care of your child, family member or friend?: No Do you have trouble with day-to-day activities such as bathing, preparing meals, shopping, managing finances, etc.?: No Are you currently unemployed and looking for a job?: Yes Are you interested in more education?: I choose not to answer this question Please select the resources that you would like help with: None Currently or been in a relationship where the following occur: No concerns reported THRIVE Score: 2 AUDIT C Alcohol Use Questionnaire (AUDIT-C) 1. How often do you have a drink containing alcohol?: Never 3. How often do you have six or more drinks on one occasion?: Never Total Score: 0 ELFEGO-7 AMB Questionnaire ELFEGO-7 Date ELFEGO - 7 assessed: 11/05/24 Source: Developed by Drs. Virgil Staples, Mariana Hendrickson, Blayne Scott and colleagues, with an educational melecio from [employer]. Review of Systems Const Denies body aches, Denies chills, Denies fever(s), Denies headache(s) and Denies poor appetite Eyes Reports no additional complaints ENT Denies dizziness and Denies headache(s) Card Denies chest pain, Denies edema, Denies lightheadedness, Reports palpitations and Denies dyspnea Resp Denies cough and Denies dyspnea GI Denies nausea and Denies vomiting Reports no additional complaints Musc Reports no additional complaints and Denies abnormal gait Skin/Breast Reports system reviewed and no additional complaints, except as documented Neuro Denies abnormal gait, Denies dizziness and Denies headache(s) Psych Reports no additional complaints Endo Reports palpitations Physical exam (Primary Care) Vital Signs: Last Vital Signs Pulse 67 01/21/25 10:37 BP 110/78 01/21/25 10:37 Pulse Ox 98 01/21/25 10:37 Oxygen Delivery Method Room Air 01/21/25 10:37 BMI result Body Mass Index 36.1 Tobacco/Smoking Status: Tobacco use Status Tobacco use date assessed 01/21/25 01/21/25 10:40 Patient Tobacco Use Status Never used Tobacco 01/21/25 10:40 Tobacco use type Cigarette 01/21/25 10:40 e-Cigarette/Vaping Use Never Used 01/21/25 10:40 PHQ-9: PHQ-9 Score PHQ-9: Total score 3 01/21/25 10:40 Thrive Assessment: Date of Thrive Assessment Date Thrive assessed 10/29/24 01/21/25 10:40 Currently or been in a relationship where the following occur: No concerns reported Const General: cooperative, healthy appearing, comfortable and no acute distress Orientation/consciousness: patient oriented x3 HENMT Head: Yes normocephalic Ears: hearing grossly normal bilaterally General nose exam: Normal external nose present Eyes General: appearance normal, both eyes and all related structures Conjunctivae: conjunctivae normal Neck Neck: Yes full ROM and Yes no lymphadenopathy Resp Effort & Inspection: normal respiratory effort Auscultation: clear to auscultation bilaterally, no crackles, no rales, no rhonchi and no wheezes Cardio Rate: regular rate Rhythm: regular rhythm Skin Other: Fungal rash on plantar aspect of left foot General skin exam: no rashes or lesions noted Neuro General: patient oriented x3 Gait exam (Neuro): Normal gait present Extrem General: Yes normal to inspection, Yes full ROM and No edema Psych Affect: normal affect Attitude: cooperative Insight: Good insight present (Psych) Judgement: Good judgement present (Psych) Coding Level of Care Code Est Pt Level 3 (48252) Diagnoses Palpitations R00.2 Primary hypertension I10 Hypertension type: primary hypertension Asthma J45.909 Hypercholesteremia E78.00 Tinea pedis B35.3 Assessment & Plan Assessment & Plan (1) Palpitations: Code(s): R00.2 - Palpitations Category: Medical Plan: The patient is advised to keep a log of palpitations, noting the time, duration, and any associated activities or symptoms. If episodes become more frequent or severe, further evaluation with a Holter monitor may be considered. (2) Hypertension: Code(s): I10 - Essential (primary) hypertension Category: Medical Qualifiers: Hypertension type: primary hypertension Qualified Code(s): I10 - Essential (primary) hypertension Plan: Continue on current blood pressure medication. Avoid salt intake and encourage healthy diet and regular exercise. (3) Asthma: Code(s): J45.909 - Unspecified asthma, uncomplicated Category: Medical Plan: The patient will be prescribed Qvar to be used twice daily to improve asthma control. Ventolin should be used only as needed, ideally once a week. The patient should rinse her mouth after using Qvar to prevent oral thrush. Follow- up in two months to assess control and adjust treatment if necessary. (4) Hypercholesteremia: Code(s): E78.00 - Pure hypercholesterolemia, unspecified Category: Medical Plan: Avoid foods that are high in cholesterol such as red meat, fried foods, eggs and baked goods. Triglyceride goal of less than 150 and LDL goal of less than 100. (5) Tinea pedis: Code(s): B35.3 - Tinea pedis Category: Medical Plan: A topical antifungal cream was prescribed for the foot rash, suspected to be a fungal infection. The patient should apply the cream at night and use moisturizing lotion in the morning. Plan This note was constructed using voice recognition software. While every effort has been made to ensure accuracy and armed security officer, still areas may have been included sometimes these areas may affect the content or meeting of the given symptoms. Total time spent caring for the patient today was 20 minutes. This includes time spent before the visit reviewing the chart, time spent during the visit, and time spent after the visit and documentation. Patient was informed and verbally consented to the use of an ambient scribe for clinic note documentation during this visit. Medications: New ketoconazole 2% 1 appl topical DAILY 30 grams 0RF Refilled beclomethasone dipropionate 40 mcg/actuation (Qvar RediHaler) 1 inh inhalation BID 10.6 grams 0RF
== END 2025-01-21 11:24 | disposition home or self-care (01) ==
LOC: HO.HMCH 10:34
DX: R00.2 Palpitations (principal); I10 Essential (primary) hypertension; J45.909 Unspecified asthma, uncomplicated; E78.00 Pure hypercholesterolemia, unspecified; B35.3 Tinea pedis

== ENCOUNTER → 2025-01-21 10:34 | Outpatient (BNVA) | payer OTHER, SELFPAY | DX: R00.2 Palpitations (principal); I10 Essential (primary) hypertension; J45.909 Unspecified asthma, uncomplicated; E78.00 Pure hypercholesterolemia, unspecified; B35.2 Tinea manuum | CPT/HCPCS: 99212 ==

== ENCOUNTER 2025-02-04 15:23 | Outpatient (REF) | payer OTHER, SELFPAY ==
--- NOTE | ~2025-02-04 | CT_ITS ---
EXAMINATION: CT ABDOMEN PELVIS WITHOUT IV CONTRAST HISTORY: N20.0 - Calculus of kidney COMPARISON: Previous renal ultrasound July [address] of the abdomen and pelvis October 2021 TECHNIQUE: CT scan of the abdomen and pelvis was performed without contrast using standard departmental protocol. Coronal and sagittal reformatted images were generated and reviewed. This CT exam was performed with one or more of the following dose reduction techniques: automated exposure control, adjustment of the mA and/or kV according to patient size, use of iterative reconstruction technique. DLP: 570 mGy-cm FINDINGS: LOWER CHEST: The visualized lung bases are clear. There is no pleural effusion. CARDIOVASCULATURE: The heart is normal in size. There is no pericardial effusion. LIVER: The liver is normal in size and contour. The liver has an unremarkable unenhanced appearance. GALLBLADDER / BILE DUCTS: The gallbladder is unremarkable. There is no intra or extrahepatic biliary ductal dilatation. SPLEEN: The spleen is normal in size and has an unremarkable unenhanced appearance. PANCREAS: The pancreas has an unremarkable unenhanced appearance. ADRENAL GLANDS: Unremarkable. KIDNEYS/RETROPERITONEUM: Bilateral renal stones, right greater than left. There are multiple clustered stones seen in the mid and lower pole of the right kidney, largest measuring 4 x 6 mm. There are several punctate 1 to 2 mm left renal stones. No hydronephrosis or ureteral dilatation or ureteral stone. LYMPH NODES: No retroperitoneal lymphadenopathy is identified in the abdomen or pelvis. VASCULATURE: The abdominal aorta is normal in caliber. MESENTERY/PERITONEUM: No free fluid. No masses. There is no free intraperitoneal gas. STOMACH: Normal SMALL BOWEL: The small bowel is normal in caliber. COLON: The colon is unremarkable. APPENDIX: Normal. URINARY BLADDER/PELVIC ORGANS: The urinary bladder is unremarkable. Uterus and adnexa are unremarkable. BONES / SOFT TISSUES: No suspicious bony or soft tissue abnormalities. CT/CT kidney stone IMPRESSION: Bilateral renal stones, right greater than left. No hydronephrosis, ureteral dilatation or ureteral stone. Electronically signed by: Lesa Bill MD 02/04/2025 04:22 PM EDT
== END 2025-02-04 15:24 | disposition home or self-care (01) ==
LOC: HO.CT 15:23
PROVIDERS: Visit Provider Urology
DX: N20.0 Calculus of kidney (principal)
CPT/HCPCS: 74176

== ENCOUNTER → 2025-02-04 15:25 | Outpatient (BNV) | payer OTHER, SELFPAY | PROVIDERS: Visit Provider Radiology Diagnostic Radiology | DX: N20.0 Calculus of kidney (principal) | CPT/HCPCS: 74176 ==

== ENCOUNTER 2025-02-09 08:34 | Outpatient (AMB) | payer OTHER, SELFPAY ==
--- NOTE | 2025-02-09 08:36 | A.OFFVIS_ITS ---
Intake Visit Reasons: 2m/CT/labs Intake Note: Patient is present for: 2m/CT/labs Urology meds: none Blood Thinner : none labs done: 01/14/25 CT done: 02/04/25 Buttonhole Maker Hand Required: No Accompanied by: Self / Same As Patient Allergies almond Allergy (Severe, Verified 02/09/25 08:38) ANAPHYLAXIS latex (Latex) Allergy (Severe, Verified 02/09/25 08:38) RASH/SWELLING shrimp Allergy (Severe, Verified 02/09/25 08:38) Anaphylaxis environmental allergies Allergy (Intermediate, Verified 02/09/25 08:38) Itching naproxen (NAPROXEN) Allergy (Intermediate, Verified 02/09/25 08:38) HIVES amoxicillin (AMOXICILLIN) Allergy (Mild, Verified 02/09/25 08:38) HIVES FRUIT Allergy (Severe, Uncoded 02/09/25 08:38) ANAPHYLAXIS HPI Comments Details: Nito is a pleasant female. She is a patient of Dr. Pugh. She seen for the following urologic conditions - nephrolithiasis Follow-up with CT imaging - multiple 6 mm stones right renal pelvis Printed copy provided Plan ureteroscopy Lab work shows elevated PTH. After stone removal will plan on 24 hour urine to confirm hypercalciuria. Last imaging renal ultrasound early 2022 with bilateral 1 cm stones Recommend repeat CT given significant change in stone burden UA today 2+ glucose suggestive of glucose spill Nephrolithiasis Stable Minimal symptoms Prior intervention - 02/07 Left ESWL - 12/10 Left USR Imaging - 05/11 renal ultrasound left lower pole 3 mm, right 2 cm cyst - 02/08 renal ultrasound bilateral renal cyst 1.2 cm, bilateral 4-5 mm stones - 09/09 renal ultrasound. Renal cyst stable. Punctate stones bilateral. It to be generally unchanged in size Labs - 01/13 calcium 8.9, magnesium 2.0, PTH 107 Stone composition - 11/09 calcium oxalate dihydrate 95% Therapeutic plan - maintain fluids - vitamin B6 and surveillance [facility] Medical History HTN (hypertension) GERD (gastroesophageal reflux disease) Post-operative nausea and vomiting Obesity (BMI 30-39.9) ASCUS with positive high risk HPV cervical Renal stone Anemia ASCUS with positive high risk HPV Scoliosis Nephrolithiasis Insomnia Anxiety Depression Asthma Surgical History Hx of cystoscopy Hx of lithotripsy History of excision of pilonidal cyst Hx of tubal ligation Family History Father No problems noted. Mother Diabetes Maternal Grandmother COPD (chronic obstructive pulmonary disease) Paternal Grandfather No problems noted. 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 Sexual orientation: Straight/Heterosexual Gender identity: Female Cognitive needs: No Hearing needs: No Vision needs: Yes (glasses) Female Reproductive History Menstrual Age of Menarche: 13 Review of Systems Const Denies chills and Denies fever(s) Card Reports no additional complaints and Denies syncope Resp Denies cough GI Denies abdominal pain and Denies heartburn Reports as per HPI and Denies change in libido Neuro Denies syncope Psych Denies change in libido Endo Denies change in libido Physical Exam Const General: cooperative, healthy appearing, comfortable and no acute distress Orientation/consciousness: patient oriented x3 HEENT Face and sinus: Yes normal facial exam Mouth: moist mucous membranes Neck Neck: Yes normal visual inspection, Yes full ROM and Yes trachea midline Chest Chest palpation & inspection: normal inspection of the chest Resp Effort & Inspection: normal respiratory effort, able to speak in complete sentences and no respiratory distress GI Inspection: Yes normal to inspection Back/Spine/Pelvis Cervical Spine: normal cervical lordosis Thoracic/Lumbar Spine: thoracic and lumbar spine normal to inspection Skin General skin exam: no rashes or lesions noted Neuro General: patient oriented x3, gait normal, tone normal and moves all extremities Extrem General: Yes normal to inspection and Yes capillary refill normal Assessment & Plan Assessment & Plan (1) Nephrolithiasis: Code(s): N20.0 - Calculus of kidney Category: Medical Plan Ureteroscopy We discussed the nature of the decision and reasonable alternatives for performing ureteroscopy. Options such as medical therapy were discussed. Interventions include chemical dissolution, ESWL, ureteroscopy with laser lithotripsy and stent placement, PCNL. The relative uncertainties and benefits related to each alternate procedure were adequately discussed. General surgical risks including, but not limited to - pain, bleeding, infection, myocardial infarction, pulmonary embolus, deep vein thrombosis and cerebrovascular accident which may result in further hospitalization were discussed. Full disclosure of the procedure as well as all major risks, benefits and complications were discussed including but not limited to damage to the urethra, bladder and kidney infection, damage to the ureter, stent migration or malposition, scarring to the renal pelvis, remnant stone fragments, subsequent stone passage with need for secondary procedures. The overall secondary procedure rate is approximately 10-15%. The overall clearance rate is approximately 90-95%. Success of the procedure in the short-term does not necessarily guarantee that long-term success will be maintained. Suitable follow up will need to be maintained. The patient showed understanding of discussion and wishes to proceed with - cystoscopy, retrograde, ureteroscopy, possible lithotripsy/stone basketing and stent on the right side Patient Instructions: This note is constructed using voice recognition software. While every effort has been made to ensure accuracy schedule checker errors may have been included. Imaging studies, laboratory and physical exam results were discussed and reviewed in detail. No major barriers to patient understanding were identified. An opportunity to ask questions regarding the treatment plan was provided. All questions were answered. The patient expressed understanding and agreement with the above treatment plan. The patient is aware they should contact our office by phone for worsening of their current condition or the appearance of new urologic symptoms. Compliance is encouraged with any medications and followup testing that is ordered. It is a privilege to participate in the urologic care of your patient. If you have any questions or concerns regarding treatment for the above conditions, or other urologic issues, please do not hesitate to contact me. The office telephone contact is [phone]. Sincerely, Dr Bryan Ovalle MD, [facility] - Urology Compassionate Specialist Care for the Genitourinary System Coding Level of Care Code Est Pt Level 4 (86829) Diagnoses Nephrolithiasis N20.0
== END 2025-02-09 09:11 | disposition home or self-care (01) ==
LOC: HO.HUSH 08:35
PROVIDERS: Visit Provider Urology
DX: N20.0 Calculus of kidney (principal)
CPT/HCPCS: 99214

== ENCOUNTER → 2025-02-09 08:34 | Outpatient (BNVA) | payer OTHER, SELFPAY | PROVIDERS: Visit Provider Urology | DX: N20.0 Calculus of kidney (principal) | CPT/HCPCS: 99212 ==

== ENCOUNTER 2025-03-08 05:53 | Day surgery (SDC) | payer OTHER, SELFPAY ==
--- NOTE | 2025-03-04 09:57 | P.CONAN_ITS ---
Documented by User: Giuliana Donohue NP 03/04/25 10:01 HPI - Anesthesia Eval Consult details Narrative: 49yo F for Right Cystoscopy, Ureteroroscopy, Retro, Laser,with stent placement PONV - scop patch with D&C 2023 (GA-LMA 4) PMF Active Problems Active Problems: All Active Problems Tinea pedis (Acute) Hypercholesteremia (Acute) Palpitations (Acute) Nocturnal hypoxemia (Acute) Glucosuria (Acute) Hypersomnolence (Acute) Anxiety (Acute) Low back pain (Acute) Endometrial polyp (Acute) Cervicalgia (Acute) Hypertension (Acute) Encounter for screening colonoscopy (Acute) Well woman exam (Acute) Obesity (Acute) Anemia (Acute) Physical exam (Acute) SYLVESTER I (cervical intraepithelial neoplasia I) (Acute) HPV (human papilloma virus) infection (Acute) Asthma (Acute) Nephrolithiasis (Acute) Anemia (Acute) Past Medical History Medical History HTN (hypertension) GERD (gastroesophageal reflux disease) Post-operative nausea and vomiting Obesity (BMI 30-39.9) ASCUS with positive high risk HPV cervical Renal stone Anemia ASCUS with positive high risk HPV Scoliosis Nephrolithiasis Insomnia Anxiety Depression Asthma Family History Family History Father No problems noted. Mother Diabetes Maternal Grandmother COPD (chronic obstructive pulmonary disease) Paternal Grandfather No problems noted. Paternal Grandmother Medical history unknown Family history of problems with anesthesia: No Surgical History Surgical History Hx of cystoscopy Hx of lithotripsy History of excision of pilonidal cyst Hx of tubal ligation History of Problems with Anesthesia: Yes (PONV) Social History Social History Housing: House Are you a primary before and after school daycare worker to a significant other at home: No Do you presently have visiting nurse or other home services: No Alcohol intake: never Patient Tobacco Use Status: Never used Tobacco Tobacco use type: Cigarette e-Cigarette/Vaping Use: Never Used Second Hand Smoke Exposure: No Use of substances other than those prescribed or required for medical reasons: No Have you been hit, kicked, punched, or otherwise hurt by someone within the past year? 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 Sexual orientation: Straight/Heterosexual Gender identity: Female Cognitive needs: No Hearing needs: No Vision needs: Yes (glasses) Meds Allergies Allergy/AdvReac Type Severity Reaction Status Date / Time almond Allergy Severe ANAPHYLAXIS Verified 02/09/25 08:38 latex (Latex) Allergy Severe RASH/SWELLI Verified 02/09/25 08:38 NG shrimp Allergy Severe Anaphylaxis Verified 02/09/25 08:38 environmental allergies Allergy Intermediate Itching Verified 02/09/25 08:38 naproxen (NAPROXEN) Allergy Intermediate HIVES Verified 02/09/25 08:38 amoxicillin (AMOXICILLIN) Allergy Mild HIVES Verified 02/09/25 08:38 FRUIT Allergy Severe ANAPHYLAXIS Uncoded 02/09/25 08:38 Exam Pertinent Lab Results Pertinent Lab Results: Laboratory Tests 01/14/25 09:08 WBC 6.2 Hgb 14.3 Hct 42.2 Plt Count 369 Sodium 143 Potassium 3.6 Chloride 110 H Carbon Dioxide 27 BUN 14 Creatinine 0.78 Assessment and Plan Assessment Anesthesia Assessment: Chart Reviewed Final Anesthetic Review Family History of Problems with Anesthesia: No History of Problems with Anesthesia: Yes (PONV) Documented by User: Ney Chicas MD 03/08/25 07:32 [facility] Past Medical History Medical History HTN (hypertension) GERD (gastroesophageal reflux disease) Post-operative nausea and vomiting Obesity (BMI 30-39.9) ASCUS with positive high risk HPV cervical Renal stone Anemia ASCUS with positive high risk HPV Scoliosis Nephrolithiasis Insomnia Anxiety Depression Asthma Functional capacity: independent ambulation Family History Family History Father No problems noted. Mother Diabetes Maternal Grandmother COPD (chronic obstructive pulmonary disease) Paternal Grandfather No problems noted. Paternal Grandmother Medical history unknown Surgical History Surgical History Hx of cystoscopy Hx of lithotripsy History of excision of pilonidal cyst Hx of tubal ligation Social History Social History Housing: House Are you a primary before and after school daycare worker to a significant other at home: No Do you presently have visiting nurse or other home services: No Alcohol intake: never Patient Tobacco Use Status: Never used Tobacco Tobacco use type: Cigarette e-Cigarette/Vaping Use: Never Used Second Hand Smoke Exposure: No Use of substances other than those prescribed or required for medical reasons: No Have you been hit, kicked, punched, or otherwise hurt by someone within the past year? 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 Sexual orientation: Straight/Heterosexual Gender identity: Female Cognitive needs: No Hearing needs: No Vision needs: Yes (glasses) Travel History History of recent travel: No Meds Allergies Allergy/AdvReac Type Severity Reaction Status Date / Time almond Allergy Severe ANAPHYLAXIS Verified 02/09/25 08:38 latex (Latex) Allergy Severe RASH/SWELLI Verified 02/09/25 08:38 NG shrimp Allergy Severe Anaphylaxis Verified 02/09/25 08:38 environmental allergies Allergy Intermediate Itching Verified 02/09/25 08:38 naproxen (NAPROXEN) Allergy Intermediate HIVES Verified 02/09/25 08:38 amoxicillin (AMOXICILLIN) Allergy Mild HIVES Verified 02/09/25 08:38 FRUIT Allergy Severe ANAPHYLAXIS Uncoded 02/09/25 08:38 Exam Exam Date and Time: 1;05/07/2024 Airway Mallampati Class: II TM Dist: >3cm Neck ROM: Full Loose/Missing/Broken Teeth: No Heart: ormal Lungs: normal Other: normal Assessment and Plan Assessment Anesthesia Assessment: Anesthesia Plan Discussed Final Anesthetic Review NPO: Yes ASA Class: II Final Preanesthetic Review: No Changes in Pt Med Stat, Meds/Allgs Chart Reviewed and Anes Risks/Benef Reviewed Patient Risk: Intermediate Procedure Risk: Low Anesthetic Plan Anesthetic Plan: GA Disposition: Standard PACU
[2025-03-08] VITALS (7 sets, daily range): BP systolic 103–128; BP diastolic 55–80; PULSE 64–89; RESP 14–22; TEMP 36.1–36.5; O2SAT 96–100; BMI 36.2
--- NOTE | ~2025-03-08 | FL_ITS ---
EXAMINATION: FL GUIDANCE ONLY HISTORY: cystoscopy stent placement right COMPARISON: Correlation is made with a CT of the abdomen and pelvis without contrast dated 02/04/2025. TECHNIQUE: Fluoroscopy time: 53 seconds. Cumulative Dose: 9.80 mGy. DAP: 2041.90 mGycm2 Images: 5. FINDINGS: Fluoroscopic spot films of the right abdomen demonstrate placement of a nephroureteral stent. FL/FL guidance in OR IMPRESSION: Fluoroscopy during procedure. Please see procedure report for additional information. Electronically signed by: Virgil Hinkle MD 03/09/2025 07:49 AM EST
[2025-03-08] MEDS: Lactated Ringers 1,000 ML 100 ML IVCONT (06:32)
--- NOTE | 2025-03-08 07:40 | MHC.SHP ---
Pre-Procedural Eval Section A - 24 Hr Update-Section A only Date of Service: 03/08/25 The patient is an INPATIENT: No The patient has been examined within 24 hours of the surgical procedure. The History & Physical has been completed within 30 days and I have reviewed it.: Yes Section B - Complete if H&P > 30 days Chief Complaint: Calculus of kidney, right Allergies: Allergies Allergy/AdvReac Type Severity Reaction Status Date / Time almond Allergy Severe ANAPHYLAXIS Verified 02/09/25 08:38 latex (Latex) Allergy Severe RASH/SWELLI Verified 02/09/25 08:38 NG shrimp Allergy Severe Anaphylaxis Verified 02/09/25 08:38 environmental allergies Allergy Intermediate Itching Verified 02/09/25 08:38 naproxen (NAPROXEN) Allergy Intermediate HIVES Verified 02/09/25 08:38 amoxicillin (AMOXICILLIN) Allergy Mild HIVES Verified 02/09/25 08:38 FRUIT Allergy Severe ANAPHYLAXIS Uncoded 02/09/25 08:38 Plan Diagnosis/Plan: Unchanged I have reviewed the history and physical and performed a pertinent physical examination on my patient. No changes have occurred unless specified. Plan for Cystoscopy, Right ureteroscopy, possible laser lithotripsy, possible ureteral stent. Risks discussed included but not limited to, possible need to repeat procedure if stone is not completely fragmented, Irritative voiding symptoms, bladder spasms, urgency, blood in urine. Time Spent With Patient Time: Total time managing care of this patient today ____ minutes.
--- NOTE | 2025-03-08 07:41 | P.OP_ITS ---
Operative Note Operative Note Date of Service: 03/08/25 Narrative: PreOperative Diagnosis:?? Right renal calculi Post Operative Diagnosis:?? Right renal calculi Procedure: - Cystoscopy, right retrograde, right ureteroscopy laser lithotripsy stent insertion, 7 Mexican by 24 cm Surgeon:?Dr Bogdan Hernández Anesthesia:? General Procedure: After informed consent was verified the patient was brought to the operating placed on the OR table in supine position.? General Anesthesia was administered per protocol.? The patient was placed in lithotomy position, prepped and draped in the usual sterile fashion.? Safety pause time-out and side of surgery confirmed.? Antibiotics confirmed. 2% lidocaine jelly 10 mL was passed transurethrally. A 22 Mexican cystoscope was inserted transurethrall. The bladder was visualized.? Both ureteric orifices were in normal position. On fluoroscopy the stone was visualized in the right kidney. An open-ended ureteral catheter was passed into the right ureteral orifice and a retrograde examination was performed. A guidewire was passed through the ureteral catheter into the kidney. The balloon dilator size 12 fr x 4 cm was passed over the guide-wire the balloon was inflated to 8 mmHg and the intramural ureter was dilated for 60 seconds. The balloon was deflated and removed. After removing the balloon dilator a 2nd guidewire was then passed into the kidney to use as a safety. The cystoscope was removed, leaving both guidewires in place. One guidewire was used as the safety and was attached to the draping. The disposable flexible ureteroscope was passed over one of the guidewires into the kidney. There were several calcifications seen in the kidney measuring from 3 mm to 7 mm. One guidewire was then removed. Laser lithotripsy of the stone was done using the 272 fiber. The stones were dense and there was minimal fragmentation of the stones. The ureteroscope was removed. The cystoscope was passed over the safety guidewire. A? 7 Mexican by 24 cm stent was placed into the ureter and renal pelvis under a combination of fluoroscopy and direct visualization. The bladder was emptied.? The rigid cystoscope was removed. ? The patient tolerated the procedure well and was brought to the recovery room in stable condition. The patient will need follow up therapy for further stone management. Complications: None Drains: Ureteral stent as dictated above
== END 2025-03-08 10:30 | disposition home or self-care (01) ==
PROVIDERS: Visit Provider Urology
PROC: (CPT 52356; principal; 2025-03-08 07:30)
DX: N20.0 Calculus of kidney (principal); Z87.442 Personal history of urinary calculi; I10 Essential (primary) hypertension; D64.9 Anemia, unspecified; E66.9 Obesity, unspecified; K21.9 Gastro-esophageal reflux disease without esophagitis; J45.909 Unspecified asthma, uncomplicated; F32.A Depression, unspecified; F41.9 Anxiety disorder, unspecified; G47.00 Insomnia, unspecified; Z88.1 Allergy status to other antibiotic agents; Z88.6 Allergy status to analgesic agent; Z91.040 Latex allergy status; Z91.013 Allergy to seafood; Z91.018 Allergy to other foods; Z98.51 Tubal ligation status
CPT/HCPCS: 52356; 87086; 87147; C1726; C1758; C1769; C2617; J0131; J0690; J1100; J1171; J2003; J2405; J2704; J3010; Q9967

== ENCOUNTER → 2025-03-08 05:53 | Outpatient (BNV) | payer OTHER, SELFPAY | PROVIDERS: Visit Provider Urology | DX: N20.0 Calculus of kidney (principal) | CPT/HCPCS: 52356; 74420 ==

== ENCOUNTER 2025-03-15 10:20 | Outpatient (REF) | payer OTHER, SELFPAY ==
--- NOTE | ~2025-03-15 | XR_ITS ---
EXAMINATION: XR ABDOMEN 1 VIEW (KUB) HISTORY: N20.0 - Calculus of kidney COMPARISON: Comparison is made with the prior examination dated 01/26/2020. Correlation is also made with a CT of the abdomen and pelvis without contrast dated 02/04/2025. FINDINGS: Two supine views of the abdomen are submitted. The bowel gas pattern is unremarkable, without evidence of mechanical obstruction. A right nephroureteral stent is seen in place. There are multiple tiny calcifications overlying the lower pole of the right renal shadow measuring up to 5 mm in size. There are phleboliths in the pelvis bilaterally. There are no abnormal soft tissue masses. The bones are intact. XR/XR KUB IMPRESSION: Right nephroureteral stent in place. Multiple calculi overlying the lower pole of the right renal shadow measuring up to 5 mm. Electronically signed by: Virgil Hinkle MD 03/15/2025 10:53 AM [facility]
== END 2025-03-15 10:21 | disposition home or self-care (01) ==
LOC: HO.XRAY 10:20
PROVIDERS: Visit Provider Urology
DX: N20.0 Calculus of kidney (principal)
CPT/HCPCS: 74018

== ENCOUNTER → 2025-03-15 10:22 | Outpatient (BNV) | payer OTHER, SELFPAY | PROVIDERS: Visit Provider Radiology Diagnostic Radiology | DX: N20.0 Calculus of kidney (principal) | CPT/HCPCS: 74018 ==

== ENCOUNTER 2025-03-23 08:58 | Day surgery (SDC) | payer OTHER, SELFPAY ==
[2025-03-23] VITALS (10 sets, daily range): BP systolic 99–115; BP diastolic 56–79; PULSE 52–87; RESP 13–17; TEMP 36.3–36.6; O2SAT 93–99; BMI 36.2
--- NOTE | ~2025-03-23 | XR_ITS ---
EXAMINATION: XR ABDOMEN 1 VIEW (KUB) HISTORY: pre right ESWL COMPARISON: Comparison is made with the prior examination dated 03/15/2025. FINDINGS: Two supine views of the abdomen are submitted. The bowel gas pattern is unremarkable, without evidence of mechanical obstruction. A right nephroureteral stent is again seen in place. Multiple calcifications overlying the right renal shadow measuring up to 5 mm in diameter. There are phleboliths in the pelvis. There are no abnormal soft tissue masses. The bones are intact. XR/XR KUB IMPRESSION: Right nephroureteral stent in place. Right nephrolithiasis as described. Electronically signed by: Virgil Hinkle MD 03/23/2025 10:33 AM EDUARDO
[2025-03-23] MEDS: Lactated Ringers 500 ML 999 ML IV (10:22)
[2025-03-23] MEDS: Lactated Ringers 1,000 ML 100 ML IVCONT (10:22)
--- NOTE | 2025-03-23 10:36 | PC.NURSE ---
Dr. Manjarrez applied scopolamine patch behind patients left ear d/t history of post operative nausea and vomiting.
--- NOTE | 2025-03-23 10:51 | HO.ANESPROP2 ---
Documented by User: Carly Palacio NP 03/21/25 10:14 HPI - Anesthesia Eval Consult details Narrative: 49 yr old female for right Lithotripsy ESW,with stent removal s/p cystoscopy 03/09/25 with GA, LMA 3 GERD: on PPI PMFSH Active Problems Active Problems: All Active Problems Tinea pedis (Acute) Hypercholesteremia (Acute) Palpitations (Acute) Nocturnal hypoxemia (Acute) Glucosuria (Acute) Hypersomnolence (Acute) Anxiety (Acute) Low back pain (Acute) Endometrial polyp (Acute) Cervicalgia (Acute) Hypertension (Acute) Encounter for screening colonoscopy (Acute) Well woman exam (Acute) Obesity (Acute) Anemia (Acute) Physical exam (Acute) SYLVESTER I (cervical intraepithelial neoplasia I) (Acute) HPV (human papilloma virus) infection (Acute) Asthma (Acute) Nephrolithiasis (Acute) Anemia (Acute) Past Medical History Medical History HTN (hypertension) GERD (gastroesophageal reflux disease) Post-operative nausea and vomiting Obesity (BMI 30-39.9) ASCUS with positive high risk HPV cervical Renal stone Anemia ASCUS with positive high risk HPV Scoliosis Nephrolithiasis Insomnia Anxiety Depression Asthma Family History Family History Father No problems noted. Mother Diabetes Maternal Grandmother COPD (chronic obstructive pulmonary disease) Paternal Grandfather No problems noted. Paternal Grandmother Medical history unknown Family history of problems with anesthesia: No Surgical History Surgical History Hx of cystoscopy Hx of lithotripsy History of excision of pilonidal cyst Hx of tubal ligation History of Problems with Anesthesia: Yes (PONV) Social History Social History Housing: House Are you a primary director of home care hospice to a significant other at home: No Do you presently have visiting nurse or other home services: No Alcohol intake: never Patient Tobacco Use Status: Never used Tobacco Tobacco use type: Cigarette e-Cigarette/Vaping Use: Never Used Second Hand Smoke Exposure: No Use of substances other than those prescribed or required for medical reasons: No Have you been hit, kicked, punched, or otherwise hurt by someone within the past year? 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 Sexual orientation: Straight/Heterosexual Gender identity: Female Cognitive needs: No Hearing needs: No Vision needs: Yes (glasses) Meds Allergies Allergy/AdvReac Type Severity Reaction Status Date / Time almond Allergy Severe ANAPHYLAXIS Verified 02/09/25 08:38 latex (Latex) Allergy Severe RASH/SWELLI Verified 02/09/25 08:38 NG shrimp Allergy Severe Anaphylaxis Verified 02/09/25 08:38 environmental allergies Allergy Intermediate Itching Verified 02/09/25 08:38 naproxen (NAPROXEN) Allergy Intermediate HIVES Verified 02/09/25 08:38 amoxicillin (AMOXICILLIN) Allergy Mild HIVES Verified 02/09/25 08:38 FRUIT Allergy Severe ANAPHYLAXIS Uncoded 02/09/25 08:38 Assessment and Plan Final Anesthetic Review Family History of Problems with Anesthesia: No History of Problems with Anesthesia: Yes (PONV) Documented by User: Aria Manjarrez DO 03/23/25 10:53 PMFSH Past Medical History Medical History HTN (hypertension) GERD (gastroesophageal reflux disease) Post-operative nausea and vomiting Obesity (BMI 30-39.9) ASCUS with positive high risk HPV cervical Renal stone Anemia ASCUS with positive high risk HPV Scoliosis Nephrolithiasis Insomnia Anxiety Depression Asthma Family History Family History Father No problems noted. Mother Diabetes Maternal Grandmother COPD (chronic obstructive pulmonary disease) Paternal Grandfather No problems noted. Paternal Grandmother Medical history unknown Family history of problems with anesthesia: No Surgical History Surgical History Hx of cystoscopy Hx of lithotripsy History of excision of pilonidal cyst Hx of tubal ligation History of Problems with Anesthesia: Yes (PONV) Social History Social History Housing: House Are you a primary director of home care hospice to a significant other at home: No Do you presently have visiting nurse or other home services: No Alcohol intake: never Patient Tobacco Use Status: Never used Tobacco Tobacco use type: Cigarette e-Cigarette/Vaping Use: Never Used Second Hand Smoke Exposure: No Use of substances other than those prescribed or required for medical reasons: No Have you been hit, kicked, punched, or otherwise hurt by someone within the past year? 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 Sexual orientation: Straight/Heterosexual Gender identity: Female Cognitive needs: No Hearing needs: No Vision needs: Yes (glasses) Meds Allergies Allergy/AdvReac Type Severity Reaction Status Date / Time almond Allergy Severe ANAPHYLAXIS Verified 02/09/25 08:38 latex (Latex) Allergy Severe RASH/SWELLI Verified 02/09/25 08:38 NG shrimp Allergy Severe Anaphylaxis Verified 02/09/25 08:38 environmental allergies Allergy Intermediate Itching Verified 02/09/25 08:38 naproxen (NAPROXEN) Allergy Intermediate HIVES Verified 02/09/25 08:38 amoxicillin (AMOXICILLIN) Allergy Mild HIVES Verified 02/09/25 08:38 FRUIT Allergy Severe ANAPHYLAXIS Uncoded 02/09/25 08:38 Exam Exam Date and Time: 03/23/25 1051 Height,Weight and Vital Signs: Height 5 ft 1 in Weight 86.8 kg Vital Signs Temperature 97.9 F 03/23/25 10:14 Pulse Rate 65 03/23/25 10:14 Respiratory Rate 16 03/23/25 10:14 Blood Pressure 109/62 03/23/25 10:14 Pulse Oximetry 96 03/23/25 10:14 Oxygen Delivery Method Room Air 03/23/25 10:14 Temperature 97.9 F 03/23/25 10:14 Pulse Rate 65 03/23/25 10:14 Respiratory Rate 16 03/23/25 10:14 Blood Pressure 109/62 03/23/25 10:14 Pulse Oximetry 96 03/23/25 10:14 Oxygen Delivery Method Room Air 03/23/25 10:14 Airway Mallampati Class: II TM Dist: >3cm Neck ROM: Full Loose/Missing/Broken Teeth: No (patient denies any loose or broken teeth) Heart: S1S2 Lungs: CTAB Assessment and Plan Assessment Anesthesia Assessment: Anesthesia Plan Discussed and Chart Reviewed Final Anesthetic Review Family History of Problems with Anesthesia: No History of Problems with Anesthesia: Yes (PONV) NPO: Yes ASA Class: II Final Preanesthetic Review: No Changes in Pt Med Stat, Meds/Allgs Chart Reviewed, Consent Obtained/Reviewed and Anes Risks/Benef Reviewed Patient Risk: Low Procedure Risk: Low Anesthetic Plan Anesthetic Plan: MAC: and Agree w/ Assess. and Plan Disposition: Standard PACU
--- NOTE | 2025-03-23 11:09 | MHC.SHP ---
Pre-Procedural Eval Section A - 24 Hr Update-Section A only Date of Service: 03/23/25 The patient is an INPATIENT: No The patient has been examined within 24 hours of the surgical procedure. The History & Physical has been completed within 30 days and I have reviewed it.: Yes Section B - Complete if H&P > 30 days Chief Complaint: Calculus of kidney, right Allergies: Allergies Allergy/AdvReac Type Severity Reaction Status Date / Time almond Allergy Severe ANAPHYLAXIS Verified 02/09/25 08:38 latex (Latex) Allergy Severe RASH/SWELLI Verified 02/09/25 08:38 NG shrimp Allergy Severe Anaphylaxis Verified 02/09/25 08:38 environmental allergies Allergy Intermediate Itching Verified 02/09/25 08:38 naproxen (NAPROXEN) Allergy Intermediate HIVES Verified 02/09/25 08:38 amoxicillin (AMOXICILLIN) Allergy Mild HIVES Verified 02/09/25 08:38 FRUIT Allergy Severe ANAPHYLAXIS Uncoded 02/09/25 08:38 Plan Diagnosis/Plan: Unchanged I have reviewed the history and physical and performed a pertinent physical examination on my patient. No changes have occurred unless specified. Right ESWL, stent removal. Discussed risks to include but not limited to, blood in the urine, bruising to the skin, kidney hematoma, possible need to repeat procedure if stone is not completely fragmented. Time Spent With Patient Time: Total time managing care of this patient today ____ minutes.
--- NOTE | 2025-03-23 11:10 | W.PM.OPN ---
Operative Note Operative Note Date of Service: 03/23/25 Narrative: PreOperative Diagnosis:? ? Right Renal calculi, ureteral stent present Post Operative Diagnosis:?Right Renal calculi, ureteral stent present Procedure:?Right ESWL, cystoscopy stent removal Surgeon:?Dr Bogdan Hernández Anesthesia:? General Disposible Flexible Cystoscope Used Indications for procedure: The patient understands there is a risk of bruising or hematoma to the kidney, infection, and stone migration following the procedure and subsequent intervention may be required.? - Imaging mulitiple renal calculi measuring up to 6 mm stone Procedure: After informed consent was verified the patient was brought to the operating room and placed in a supine position.? Anesthesia was performed per protocol. Safety pause time-out was performed. Imaging was displayed in the room and laterality confirmed. The patient was repositioned, the genitalia was prepped, the disposable flexible cystoscope was passed into the bladder the right ureteral stent was visualized using a grasper the stent was removed without difficulty. ESWL was performed.?The stones was visualized on both fluoroscopy and ultrasound.? Shockwave lithotripsy was performed, with a maximum rate of 120 hertz. After the first 300 shocks a pause for 3 minutes was completed.? A total of 2500 shocks to a maximum of power of 20 with a maximum rate of 120 hertz.? Some fragmentation of the stone was appreciated. The patient tolerated the procedure well and was transferred to the recovery area upon completion. Complications: None
== END 2025-03-23 14:03 | disposition home or self-care (01) ==
PROVIDERS: Visit Provider Urology
PROC: (CPT 50590; principal; 2025-03-23 10:30)
DX: N20.0 Calculus of kidney (principal); Z96.0 Presence of urogenital implants; Z87.442 Personal history of urinary calculi; K21.9 Gastro-esophageal reflux disease without esophagitis; E66.9 Obesity, unspecified; D64.9 Anemia, unspecified; J45.909 Unspecified asthma, uncomplicated; F32.A Depression, unspecified; F41.9 Anxiety disorder, unspecified; Z79.899 Other long term (current) drug therapy; Z88.0 Allergy status to penicillin; Z88.6 Allergy status to analgesic agent; Z91.040 Latex allergy status; Z98.890 Other specified postprocedural states
CPT/HCPCS: 50590; 74018; J0131; J0744; J1100; J1630; J1938; J2003; J2250; J2405; J2704; J3010

== ENCOUNTER → 2025-03-23 08:58 | Outpatient (BNV) | payer OTHER, SELFPAY | PROVIDERS: Visit Provider Urology | DX: N20.0 Calculus of kidney (principal); Z96.0 Presence of urogenital implants | CPT/HCPCS: 50590; 52310 ==

== ENCOUNTER → 2025-03-23 09:51 | Outpatient (BNV) | payer OTHER, SELFPAY | PROVIDERS: Visit Provider Radiology Diagnostic Radiology | DX: N20.0 Calculus of kidney (principal); Z96.0 Presence of urogenital implants | CPT/HCPCS: 74018 ==

== ENCOUNTER 2025-03-25 10:33 | Outpatient (AMB) | payer OTHER, SELFPAY ==
[2025-03-25 10:38] VITALS: BP 90/52; PULSE 74; RESP 18; O2SAT 99; BMI 35.8
--- NOTE | 2025-03-25 10:38 | MHC.PC.OV ---
Vital Signs 03/25/25 10:38 03/25/25 11:07 Height 5 ft 1 in Weight 189 lb 8 oz BMI 35.8 BP 90/52 L 110/68 Blood Pressure Location Lt brachial Lt brachial Position Sitting Sitting Respiration 18 Pulse 74 Pulse Source Pulse Oximeter Temp Source Temporal Artery Scan Pulse Oximetry (%) 99 Oxygen Delivery Method Room Air Intake Visit Reasons: 2 month f/u Shingler Required: No Accompanied by: Self / Same As Patient Allergies almond Allergy (Severe, Verified 03/25/25 10:39) ANAPHYLAXIS latex (Latex) Allergy (Severe, Verified 03/25/25 10:39) RASH/SWELLING shrimp Allergy (Severe, Verified 03/25/25 10:39) Anaphylaxis environmental allergies Allergy (Intermediate, Verified 03/25/25 10:39) Itching naproxen (NAPROXEN) Allergy (Intermediate, Verified 03/25/25 10:39) HIVES amoxicillin (AMOXICILLIN) Allergy (Mild, Verified 03/25/25 10:39) HIVES FRUIT Allergy (Severe, Uncoded 02/09/25 08:38) ANAPHYLAXIS Medication List - Last Reconciled 03/25/25 by Nancy Cisse PA-C albuterol sulfate 90 mcg/actuation (ProAir HFA) 2 puffs inhalation Q4-6H PRN 30 days beclomethasone dipropionate 40 mcg/actuation (Qvar RediHaler) 1 inh inhalation BID cyclobenzaprine 5 mg PO Q8H PRN epinephrine (EpiPen 2-Dylan) 0.3 mg (0.3 mL) IM Q10M PRN ferrous sulfate 325 mg PO BID hydroxyzine HCl 25 mg PO BEDTIME ketoconazole 2% 1 appl topical DAILY lisinopril 10 mg PO DAILY loratadine 10 mg PO DAILY PRN lorazepam 1 mg PO BEDTIME omeprazole 20 mg PO DAILY triamcinolone acetonide 0.5% 1 appl topical DAILY PRN Tobacco use date assessed: 03/25/25 Dental Screening Dental Screen Date: 03/25/25 Did you have a dental visit in the last 12 months?: No Did you have a dental problem in the last 6 months where you did not have access to dental care?: No Was dental information given to patient?: Patient has dentist HPI 2 month f/u HPI Details 49-year-old female with past medical history of anemia, asthma, kidney stones, obesity last seen 01/2025 coming in for follow up. In review of the notes, patient was seen by Urology 01/2025 plan cystoscopy, right ureteroscopy laser lithotripsy stent insertion which was performed 03/11/[address] Figueroa and underwent stent removal 03/23/2025. Presenting for follow-up after recent urological surgery and for management of chronic conditions. A stent was removed two days ago, and while she feels much better and denies pain, she noticed blood in her urine this morning. She denies any lightheadedness or dizziness but feels like she is developing a cold; a self-administered COVID test this morning was negative. The patient's asthma is reportedly well-controlled; she uses a Qvar inhaler twice daily and has only used her albuterol inhaler twice in the past month. [facility] Medical History HTN (hypertension) GERD (gastroesophageal reflux disease) Post-operative nausea and vomiting Obesity (BMI 30-39.9) ASCUS with positive high risk HPV cervical Renal stone Anemia ASCUS with positive high risk HPV Scoliosis Nephrolithiasis Insomnia Anxiety Depression Asthma Surgical History Hx of cystoscopy Hx of lithotripsy History of excision of pilonidal cyst Hx of tubal ligation Family History Father No problems noted. Mother Diabetes Maternal Grandmother COPD (chronic obstructive pulmonary disease) Paternal Grandfather No problems noted. 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 Sexual orientation: Straight/Heterosexual Gender identity: Female Cognitive needs: No Hearing needs: No Vision needs: Yes (glasses) Female Reproductive History Menstrual Age of Menarche: 13 Questionnaire Thrive Questionnaire Date Thrive assessed: 03/25/25 I am a: Patient What is your living situation today?: I have a steady place to live Within the past 12 months, did the food you bought not last and you didn't have the money to get more?: Often true Within the past 12 months, did you worry whether your food would run out before you got money to buy more?: Sometimes True Do you have trouble paying for medicines?: No Do you have trouble getting transportation to medical appointments?: No Do you have trouble paying your heating and electricity bill?: No Do you have trouble taking care of your child, family member or friend?: No Do you have trouble with day-to-day activities such as bathing, preparing meals, shopping, managing finances, etc.?: No Are you currently unemployed and looking for a job?: Yes Are you interested in more education?: I choose not to answer this question Please select the resources that you would like help with: None Currently or been in a relationship where the following occur: No concerns reported THRIVE Score: 2 ELFEGO-7 AMB Questionnaire ELFEGO-7 Date ELFEGO - 7 assessed: 11/05/24 Source: Developed by Drs. Virgil Staples, Mariana Hendrickson, Blayne Scott and colleagues, with an educational melecio from [employer]. Review of Systems Const Denies body aches, Denies chills, Denies fever(s), Denies headache(s) and Denies poor appetite Eyes Reports no additional complaints ENT Denies dysphagia, Denies dizziness, Denies headache(s) and Denies odynophagia Card Denies chest pain, Denies syncope, Denies edema, Denies irregular heart rhythm, Denies lightheadedness and Denies dyspnea Resp Denies cough and Denies dyspnea GI Denies abdominal pain, Denies constipation, Denies dysphagia, Denies diarrhea, Denies nausea, Denies odynophagia and Denies vomiting Reports no additional complaints Musc Reports no additional complaints and Denies abnormal gait Skin/Breast Reports system reviewed and no additional complaints, except as documented Neuro Denies abnormal gait, Denies dizziness, Denies syncope and Denies headache(s) Psych Reports no additional complaints Physical exam (Primary Care) Vital Signs: Last Vital Signs Pulse 74 03/25/25 10:38 Resp 18 03/25/25 10:38 BP 110/68 03/25/25 11:07 Pulse Ox 99 03/25/25 10:38 Oxygen Delivery Method Room Air 03/25/25 10:38 BMI result Body Mass Index 35.8 Tobacco/Smoking Status: Tobacco use Status Tobacco use date assessed 03/25/25 03/25/25 10:41 Patient Tobacco Use Status Never used Tobacco 03/25/25 10:41 Tobacco use type Cigarette 03/25/25 10:41 e-Cigarette/Vaping Use Never Used 03/25/25 10:41 Thrive Assessment: Date of Thrive Assessment Date Thrive assessed 03/25/25 03/25/25 10:41 Currently or been in a relationship where the following occur: No concerns reported Const General: cooperative, healthy appearing, comfortable and no acute distress Orientation/consciousness: patient oriented x3 HENMT Head: Yes normocephalic Ears: hearing grossly normal bilaterally General nose exam: Normal external nose present Eyes General: appearance normal, both eyes and all related structures Conjunctivae: conjunctivae normal Neck Neck: Yes full ROM and Yes no lymphadenopathy Resp Effort & Inspection: normal respiratory effort Auscultation: clear to auscultation bilaterally, no crackles, no rales, no rhonchi and no wheezes Cardio Rate: regular rate Rhythm: regular rhythm Skin General skin exam: no rashes or lesions noted Neuro General: patient oriented x3 Gait exam (Neuro): Normal gait present Extrem General: Yes normal to inspection, Yes full ROM and No edema Psych Affect: normal affect Attitude: cooperative Insight: Good insight present (Psych) Judgement: Good judgement present (Psych) Coding Level of Care Code Est Pt Level 3 (24748) Diagnoses Palpitations R00.2 Primary hypertension I10 Hypertension type: primary hypertension Asthma J45.909 Hypercholesteremia E78.00 Assessment & Plan Assessment & Plan (1) Palpitations: Code(s): R00.2 - Palpitations Category: Medical Plan: Resolved and has not had further episodes. (2) Hypertension: Code(s): I10 - Essential (primary) hypertension Category: Medical Qualifiers: Hypertension type: primary hypertension Qualified Code(s): I10 - Essential (primary) hypertension Plan: Plan to cut back on the Lisinopril to 5mg tablet. She will monitor blood pressure at home and reach out if they exceed 140/90. Avoid salt intake and encourage healthy diet and regular exercise. (3) Asthma: Code(s): J45.909 - Unspecified asthma, uncomplicated Category: Medical Plan: Asthma has been well controlled with the Qvar BID and has been rinsing her mouth out after each use. She has used albuterol 2x in the last month. Continue on current regimen. (4) Hypercholesteremia: Code(s): E78.00 - Pure hypercholesterolemia, unspecified Category: Medical Plan: Avoid foods that are high in cholesterol such as red meat, fried foods, eggs and baked goods. Triglyceride goal of less than 150 and LDL goal of less than 100. Plan This note was constructed using voice recognition software. While every effort has been made to ensure accuracy and print production associate, still areas may have been included sometimes these areas may affect the content or meeting of the given symptoms. Total time spent caring for the patient today was twenty minutes. This includes time spent before the visit reviewing the chart, time spent during the visit, and time spent after the visit and documentation. Patient was informed and verbally consented to the use of an ambient scribe for clinic note documentation during this visit. Orders: Orders SARS-CoV2/FLU/RSV Today R09.89 - Other specified symptoms and signs involving the circulatory and respiratory systems T Spot TB Today Z11.1 - Encounter for screening for respiratory tuberculosis Medications: New lisinopril 5 mg PO DAILY 90 tabs 0RF Discontinued lisinopril Discontinued Reason: Patient no longer taking 10 mg PO DAILY 90 tabs 1RF
[2025-03-25 11:07] VITALS: BP 110/68
== END 2025-03-25 11:13 | disposition home or self-care (01) ==
LOC: HO.HMCH 10:34
DX: R00.2 Palpitations (principal); I10 Essential (primary) hypertension; J45.909 Unspecified asthma, uncomplicated; E78.00 Pure hypercholesterolemia, unspecified

== ENCOUNTER 2025-03-25 10:33 | Outpatient (REF) | payer OTHER, SELFPAY ==
[2025-03-25 12:31] LABS: Resp Syncy Virus RNA Qual PCR NEGATIVE (Negative); SARS COV2 PCR INHOUSE NEGATIVE (Negative)
[2025-03-28 08:13] LABS: TS Negative Control Passed; TS Panel A 0; TS Panel B 0; TS Positive Control Passed; TSpotTB Negative (Negative)
== END 2025-03-25 10:34 | disposition home or self-care (01) ==
LOC: HO.LAB 10:33
DX: Z11.1 Encounter for screening for respiratory tuberculosis (principal); R09.89 Other specified symptoms and signs involving the circulatory and respiratory systems; R00.2 Palpitations; I10 Essential (primary) hypertension; J45.909 Unspecified asthma, uncomplicated; E78.00 Pure hypercholesterolemia, unspecified
CPT/HCPCS: 86481; 87637; 99212